=== PATIENT | female | born 1995 | race Caucasian/White ===

== ENCOUNTER 2019-10-03 16:28 | Emergency (ER) | payer OTHER, SELFPAY ==
[2019-10-03 17:37] VITALS: BP 113/50; PULSE 78; RESP 17; TEMP 37.1; O2SAT 99
--- NOTE | 2019-10-03 17:57 | ED.FEMALEGU ---
HPI - Female Genitourinary General Chief complaint: Urogenital-Female Stated complaint: Pelvic Pain Time Seen by Provider: 10/03/19 17:48 Source: patient and RN notes reviewed Mode of arrival: ambulatory Limitations: no limitations History of Present Illness HPI Narrative: Patient presents today complaining of chronic pelvic pain. States she was treated for PID in December, but reports she did not finish her antibiotics. States her pelvic pain is worse now and she is wondering if she has a UTI. She has an appointment with an MANAGER COLLECTION for follow-up tomorrow. MD elicited complaint: pelvic pain Related Data Home Medications Medication Instructions Recorded Confirmed No Home Medications 10/03/19 10/03/19 Allergies Allergy/AdvReac Type Severity Reaction Status Date / Time morphine Allergy Intermediate Confusion Verified 09/15/18 21:59 tramadol Allergy Intermediate Confusion Verified 10/03/19 17:37 acetaminophen Allergy Mild Nausea Verified 09/15/18 21:59 hydrocodone Allergy Mild Nausea Verified 09/15/18 21:59 latex Allergy Unknown ITCHING Verified 09/15/18 21:58 Review of Systems Review of Systems: Narrative: CONSTITUTIONAL: Denies body aches, fever, chills, or sweats. EYES: Denies visual changes, redness, or discharge. ENT: Denies rhinorrhea, congestion, sore throat, or otalgia. CARDIOVASCULAR: Denies chest pain, palpitations, or edema. RESPIRATORY: Denies cough or dyspnea. GASTROINTESTINAL: Denies abdominal pain, nausea, vomiting, or diarrhea. GENITOURINARY: Denies dysuria or hematuria. Pelvic pain SKIN: Denies rash, itching, or wounds. MUSCULOSKELETAL: Denies back pain, joint pain, or myalgia. NEUROLOGIC: Denies headache, numbness, tingling, or weakness. PSYCH: Denies depression or anxiety. 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 Please see nursing chart for further information. There is no relevant family history pertinent to the presenting complaint Exam Narrative: Exam Narrative: GENERAL: Well-appearing, well-nourished, and in no acute distress. HEAD: Normocephalic, atraumatic. EYES: EOMI. No redness or drainage. Conjunctivae normal. ENT: Mucous membranes pink and moist. NECK: Normal AROM. Supple. No lymphadenopathy. CHEST: No respiratory distress. Clear to auscultation. HEART: Regular rate and rhythm. No murmur appreciated. Normal peripheral pulses. ABDOMEN: Soft, nondistended, normal active bowel sounds.+ Right lower quadrant tenderness. no rebound or guarding. MUSCULOSKELETAL: No bony tenderness. EXTREMITIES: Normal range of motion. No edema. SKIN: Warm, dry, no rash. NEURO: No focal deficits. Alert and oriented x3. Gait steady. PSYCH: Normal affect. No signs of depression or anxiety. Course Vital Signs Vital signs: Vital Signs Temperature 98.7 F 10/03/19 17:37 Pulse Rate 78 10/03/19 17:37 Respiratory Rate 17 10/03/19 17:37 Blood Pressure 113/50 L 10/03/19 17:37 Pulse Oximetry 99 10/03/19 17:37 Temperature 98.7 F 10/03/19 17:37 Pulse Rate 78 10/03/19 17:37 Respiratory Rate 17 10/03/19 17:37 Blood Pressure 113/50 L 10/03/19 17:37 Pulse Oximetry 99 10/03/19 17:37 Reviewed MDM - Female Genitourinary Differential Diagnosis Differential diagnosis: Likely urinary tract infection, bacterial vaginosis, ovarian cyst, vaginitis, ruptured ov
== END 2019-10-03 18:00 | disposition home or self-care (01) ==
PROVIDERS: Emergency Provider Nurse Practitioner; PCP Emergency Medicine
DX: R10.2 Pelvic and perineal pain (principal); F17.200 Nicotine dependence, unspecified, uncomplicated
CPT/HCPCS: 81003; 99212; G0463

== ENCOUNTER 2019-10-12 22:55 | Emergency (ER) | payer OTHER, SELFPAY ==
--- NOTE | 2019-10-12 22:57 | PC.NURSE ---
During intake process, pt asked if she would be in and out with in 2 hours, if not I have no sitter . Explained to the patient acuity of the department, and their were patients ahead of her, and unable to give a wait time,explained to patient we would be taking her right back for triage. Pt then stated i'll just come back tomorrow, I don't want to be billed . Again, told pt we would be more than happy to see her, she declined and walked out with a normal steady gait.
== END 2019-10-12 22:57 | disposition left against medical advice (07) ==
PROVIDERS: PCP Emergency Medicine
DX: Z53.21 Procedure and treatment not carried out due to patient leaving prior to being seen by health care provider (principal)
CPT/HCPCS: 99199

== ENCOUNTER 2020-03-15 18:36 | Emergency (ER) | payer OTHER, SELFPAY ==
--- NOTE | ~2020-03-15 | CT_ITS ---
EXAMINATION: CT abdomen pelvis w con DATE: 03/15/2020 20:38 INDICATION: Abdominal pain. TECHNIQUE: Computed tomography (CT) of the abdomen and pelvis was performed with 100 mL Omnipaque 350 intravenous contrast. Automated exposure control and iterative reconstruction technique were employe d. The dose-length product was 180.18 mGy-cm. COMPARISON: None. FINDINGS: The visualized portions of the lung bases are clear without pneumonia or pleural effusion. The heart size is normal. No pericardial effusion. The liver, gallbladder, spleen, pancreas, adrenal glands, and kidneys are normal. There are no dilated loops of bowel. The appendix is normal. There ar e no pathologically enlarged lymph nodes. There is no free intraperitoneal fluid. There is lumbar lev ocurvature. IMPRESSION: 1. No etiology for the patient's symptoms. Reviewed, dictated and finalized at location A.
[2020-03-15 18:50] VITALS: BP 113/63; PULSE 80; RESP 16; TEMP 36.8; O2SAT 100
[2020-03-15 19:07] LABS: Basophils Percent Auto 0.4 % (0.2-1.2); Eosinophils Absolute Auto 0.1 K/mm3 (0-0.3); Hematocrit 40.8 % (37.0-47.0); Immature Granulocyte Absolute 0.02 K/mm3 (0.00-0.031); Immature Granulocyte Percent A 0.2 % (0-0.5); Lymphocytes Absolute Auto 2.69 K/mm3 (0.9-3.2); Lymphocytes Percent Auto 32.3 % (18.3-44.2); Mean Corpuscular HGB Conc 34.3 g/dl (32-36); Mean Corpuscular Volume 93.4 fl (80-100); Mean Platelet Volume 10.9 fl (7.4-10.4); Monocytes Absolute Auto 0.4 K/mm3 (0.1-0.6); Monocytes Percent Auto 5.2 % (2.6-8.5); Neutrophils Absolute Auto 5.1 K/mm3 (1.3-6.7); Neutrophils Percent Auto 60.9 % (45.5-73.1); Platelet Count Result 231 k/mm3 (150-375); Red Blood Count 4.37 M/mm3 (4.2-5.4); Red Cell Distribution Width 12.4 % (11.5-14.5); White Blood Count 8.3 K/mm3 (4.5-10.0)
[2020-03-15 19:09] LABS: Add Urine Microscopic? NO; Appearance Urine Clear (Clear); Bilirubin Urine Negative (Negative); Blood Urine Negative (Negative); Color Urine Yellow (Yellow); Glucose Urine UA Negative (Negative); Ketones Urine Negative (Negative); Leukocyte Esterase Ur Negative LEU/UL (Negative); Nitrate Urine Negative (Negative); Protein Urine Negative (Negative); Specific Grav Ur 1.026 (1.001-1.035); Urobilinogen Urine Negative mg/dL (<2.0)
[2020-03-15 19:18] LABS: Alanine Aminotransferase 16 U/L (4-35); Albumin Level 4.6 g/dL (3.5-5.1); Alkaline Phosphatase 60 U/L (38-126); Aspartate Amino Transferase 21 U/L (14-36); Bilirubin,Total 0.6 mg/dL (0.2-1.3); Blood Urea Nitrogen 14 mg/dL (7-17); Calcium 9.8 mg/dL (8.4-10.2); Carbon Dioxide 25 mmol/L (22-30); Chloride 103 mmol/L (98-107); Estimated CRCL calculation 99 ml/min; Estimated Glomerular Filt Rate > 60; Glucose 92 mg/dL (65-105); Lipase 70 U/L (23-300); Potassium 3.6 mmol/L (3.4-5.0); Sodium 136 mmol/L (137-145)
--- NOTE | 2020-03-15 21:20 | ED.ABDPAIN ---
HPI - Abdominal Pain General Chief Complaint: Abdominal Pain Stated Complaint: abd pain, poss Time Seen by Provider: 03/15/20 19:56 Source: patient Mode of arrival: ambulatory Limitations: no limitations History of Present Illness HPI narrative: Patient is a 24-year-old female who presents to emergency department with pelvic pain which began over the course of the last 3 days patient notes that she had had intercourse and the pain began 30 minutes after intercourse. Patient notes she is 2 weeks late for her period as well. Patient notes she has had 2- tests at home . Patient denies any fever chills nausea vomiting. Patient had had some loose stools. Patient denies rectal bleeding melena. Related Data Allergies Allergy/AdvReac Type Severity Reaction Status Date / Time morphine Allergy Intermediate Confusion Verified 09/15/18 21:59 tramadol Allergy Intermediate Confusion Verified 10/03/19 17:37 acetaminophen Allergy Mild Nausea Verified 09/15/18 21:59 hydrocodone Allergy Mild Nausea Verified 09/15/18 21:59 latex Allergy Unknown ITCHING Verified 09/15/18 21:58 Review of Systems Review of Systems: All systems reviewed & are unremarkable except as noted in HPI and below PMFSH Past Medical History Medical History History of pelvic inflammatory disease Family History Family History (Updated 01/04/15 @ 11:40 by DOCTOR UNKNOWN) Other Cerebrovascular accident Diabetes mellitus Family history of alcoholism Family history of arthritis Family history of malignant neoplasm Family history of mental disorder Hypertension Social History Social History Smoking status: Current every day smoker Alcohol intake: current Exam Const: General: no acute distress and alert Orientation/consciousness: patient oriented x3 HENMT: Head: normal to inspection Eyes: Conjunctivae: conjunctivae normal Pupils: Equal, round and reactive pupils present Resp: Effort & Inspection: normal respiratory effort Auscultation: clear to auscultation bilaterally Cardio: Rate: regular rate Rhythm: regular rhythm GI: GI Palp: Yes Soft to palpation and Yes Tenderness to palpation present (GI) : General: Yes no CVA tenderness Back/Spine/Pelvis: Back: no CVA tenderness Skin: General skin exam: normal color Rashes: no rashes Neuro: General: patient oriented x3 and moves all extremities Extrem: General: normal to inspection Psych: Mental Status: mental status grossly normal Affect: normal affect Other: Normal female genitourinary exam Course Course Emergency Course: Patient in the room in no distress aware of case findings treatment plan and diagnosis agreeing to follow-up as directed or to return if symptoms worsen patient without any high risk changes in the blood work or imaging patient had pelvic cultures taken and will follow with primary care for results felt appropriate for outpatient reevaluation provided with reasons to return Vital Signs Vital signs: Vital Signs Temperature 98.3 F 03/15/20 18:50 Pulse Rate 80 03/15/20 18:50 Respiratory Rate 16 03/15/20 18:50 Blood Pressure 113/63 03/15/20 18:50 Pulse Oximetry 100 03/15/20 18:50 Temperature 98.3 F 03/15/20 18:50 Pulse Rate 80 03/15/20 18:50 Respiratory Rate 16 03/15/20 18:50 Blood Pressure 113/63 03/15/20 18:50 Pulse Oximetry 100 03/15/20 18:50 MDM - Abdominal Pain MDM Narrative Medical decision making narrative: Patient with pelvic pain of unknown etiology pelvic cultures were taken patient also had blood work and imaging which did not reveal any high risk changes patient felt appropriate for outpatient reevaluation advised to follow with gynecology and primary care for reevaluation Lab Data Result diagrams: 03/15/20 18:56 03/15/20 18:56 Labs: Lab Results 03/15
[2020-03-15 21:38] VITALS: BP 114/71; PULSE 78; RESP 16; TEMP 36.7; O2SAT 100
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
== END 2020-03-15 21:38 | disposition home or self-care (01) ==
PROVIDERS: Emergency Medicine Emergency Medical Services; Family Medicine; Emergency Provider Emergency Medicine; PCP Emergency Medicine
DX: R10.2 Pelvic and perineal pain (principal); F17.200 Nicotine dependence, unspecified, uncomplicated
CPT/HCPCS: 36415; 74177; 80053; 81003; 81025; 83690; 85025; 87070; 87491; 87591; 87808; 99284; Q9967

== ENCOUNTER 2020-04-03 00:37 | Emergency (ER) | payer OTHER, SELFPAY ==
--- NOTE | ~2020-04-03 | XR_ITS ---
CORRECTED REPORT Report and charges moved from incorrect visit [id number] to correct visit [id number]. 04/03/20 sef EXAMINATION: XR facial bones min 3V INDICATION: Facial pain TECHNIQUE: Four views of the facial bones are obtained. COMPARISON: None available FINDINGS: No facial fracture is identified. The paranasal sinuses are well aerated. The visualized portions of the cervical spine are unremarkable. IMPRESSION: 1. No evidence of facial bone fracture. If there is high clinical suspicion for fracture, consider facial CT. Reviewed, dictated and finalized at location A. CHEL[facility]
[2020-04-03 00:42] VITALS: BP 132/66; PULSE 131; RESP 18; TEMP 36.3; O2SAT 98
[2020-04-03] MEDS: oxyCODONE/ACETAMINOPHEN 5-325 MG TABLET 1 TABLET PO (02:05)
[2020-04-03] MEDS: ONDANSETRON HCL ODT 4 MG TABLET PO (02:48)
[2020-04-03 02:49] VITALS: BP 126/56; PULSE 89; RESP 19; O2SAT 98
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
[2020-04-03 03:40] VITALS: BP 122/78; PULSE 80; RESP 19; O2SAT 99
== END 2020-04-03 03:40 | disposition home or self-care (01) ==
PROVIDERS: Emergency Provider Emergency Medicine; PCP Emergency Medicine
DX: S00.33XA Contusion of nose, initial encounter (principal); Y04.0XXA Assault by unarmed brawl or fight, initial encounter
CPT/HCPCS: 70150; 99283; A9270

== ENCOUNTER 2020-04-11 05:34 | Emergency (ER) | payer OTHER, SELFPAY ==
[2020-04-11 05:36] VITALS: BP 106/51; PULSE 100; RESP 19; TEMP 36.7; O2SAT 100
--- NOTE | 2020-04-11 05:38 | ED.GENADULT ---
HPI - General Adult General Chief complaint: Unspecified Stated complaint: sore throat Time Seen by Provider: 04/11/20 05:35 History of Present Illness HPI narrative: Sore throat since last night. Mild when she went to bed. Now she has severe pain and difficulty swallowing. The pain is on the left side of the throat. Assocatied with swollen tonsils. No cough, congestion, fever, sick contacts. Related Data Allergies Allergy/AdvReac Type Severity Reaction Status Date / Time morphine Allergy Intermediate Confusion Verified 04/11/20 05:39 latex Allergy Unknown ITCHING Verified 04/11/20 05:39 Review of Systems Review of Systems: All systems reviewed & are unremarkable except as noted in HPI and below Constitutional: Constitutional: Denies chills and Denies fever(s) ENT: Reports sore throat Cardiovascular: Cardiovascular: Denies chest pain Respiratory: Respiratory: Denies cough and Denies dyspnea Neurologic: Denies headache(s) COUNTS INCLUDE 234 BEDS AT THE [facility] Past Medical History Medical History History of pelvic inflammatory disease Surgical History Surgical History History of tubal ligation Family History Family History Other Cerebrovascular accident Diabetes mellitus Family history of alcoholism Family history of arthritis Family history of malignant neoplasm Family history of mental disorder Hypertension Social History Social History Smoking status: Current every day smoker Alcohol intake: current Gender identity (if verbalized by the patient): Female Exam Const: General: healthy appearing, no acute distress and alert Orientation/consciousness: patient oriented x3 HENMT: Other: Left tonsil enlarged and erythematous with exudates. uvula midline. Neck: Neck: lymphadenopathy (left anterior cervical) Resp: Effort & Inspection: normal respiratory effort Auscultation: clear to auscultation bilaterally Cardio: Rate: regular rate Rhythm: regular rhythm Skin: General skin exam: normal color Rashes: no rashes Neuro: General: patient oriented x3 Speech: normal speech Course Vital Signs Vital signs: Vital Signs Temperature 36.7 C 04/11/20 05:36 Pulse Rate 100 04/11/20 05:36 Respiratory Rate 19 04/11/20 05:36 Blood Pressure 106/51 L 04/11/20 05:36 Pulse Oximetry 100 04/11/20 05:36 Temperature 36.7 C 04/11/20 05:36 Pulse Rate 100 04/11/20 05:36 Respiratory Rate 04/11/20 05:36 Blood Pressure 106/51 L 04/11/20 05:36 Pulse Oximetry 100 04/11/20 05:36 Medical Decision Making MDM Narrative Medical decision making narrative: Strep swab negative. Due to the severity of her symptoms I will start antibioics pending culture results as I do not want it to progress into an abscess left untreated. Medical Records Medical records reviewed: Yes I reviewed the patient's medical records. Vital Signs Vital Signs: Vital Signs Temperature 36.7 C 04/11/20 05:36 Pulse Rate 100 04/11/20 05:36 Respiratory Rate 04/11/20 05:36 Blood Pressure 106/51 L 04/11/20 05:36 Pulse Oximetry 100 04/11/20 05:36 Temperature 36.7 C 04/11/20 05:36 Pulse Rate 100 04/11/20 05:36 Respiratory Rate 04/11/20 05:36 Blood Pressure 106/51 L 04/11/20 05:36 Pulse Oximetry 100 04/11/20 05:36 Lab Data Lab results reviewed: Yes I reviewed the patient's lab results. Labs: Strep Screen Presumptive Negative *(Reference Range: Negative)* Discharge Plan Discharge Clinical Impression: Tonsillitis Patient Disposition: Home, Self-Care Condition: Stable Instructions: Antibiotic Form, Tonsillitis (ED) Prescriptions: New penicillin V potassium 500 mg tablet 500 mg PO Q12H Qty: 20 RF: 0 No Action ibuprof
[2020-04-11] MEDS: KETOROLAC (*BKC) 60 MG/2 ML VIAL IM (05:55)
[2020-04-11] MEDS: PENICILLIN V POTASSIUM 250 MG TABLET 500 MG PO (06:02)
[2020-04-11 06:03] VITALS: BP 118/67; PULSE 69; RESP 19; TEMP 36.2; O2SAT 100
== END 2020-04-11 06:04 | disposition home or self-care (01) ==
PROVIDERS: Emergency Provider Emergency Medicine; PCP Emergency Medicine
DX: J03.90 Acute tonsillitis, unspecified (principal)
CPT/HCPCS: 87081; 87880; 96372; 99284; A9270; J1100; J1885

== ENCOUNTER 2020-09-23 23:54 | Emergency (ER) | payer OTHER, SELFPAY ==
--- NOTE | ~2020-09-23 | CT_ITS ---
EXAMINATION: CT abdomen pelvis w con EXAM DATE: 09/24/2020 03:14 INDICATION: Epigastric pain. TECHNIQUE: Spiral CT of the abdomen and pelvis was performed following intravenous injection of 100 m L Omnipaque 350. Axial, coronal and sagittal images were reviewed. The dose-length product (DLP) fo r this examination was 203.53 mGy-cm. The exposure was tailored according to patient size (auto mA e xposure control), and iterative reconstruction (ASIR) was used as additional dose reduction technique . There is no prior study for comparison. FINDINGS: The liver, spleen, adrenal glands and pancreas are unremarkable. Gallbladder is unremarkab le. No biliary obstruction. Portal and splenic veins are patent. Kidneys enhance symmetrically. T here is no hydronephrosis. The uterus is unremarkable. The bladder is unremarkable. There is no retroperitoneal or pelvic lymphadenopathy. The appendix is normal. The stomach and small bowel are unremarkable. There is expected amount of c olonic stool. No free intraperitoneal gas. The heart is normal in size. There are no pericardial or pleural effusions. The lung bases are unremarkable. There are no osteoblastic or osteolytic les ions identified. IMPRESSION: 1. No acute intra-abdominal findings. Reviewed, dictated and finalized at location A. O CONSULTANT
[2020-09-23 23:58] VITALS: BP 118/58; PULSE 89; RESP 16; TEMP 36; O2SAT 98
[2020-09-24 00:34] LABS: Basophils Percent Auto 0.5 % (0.2-1.2); Eosinophils Absolute Auto 0.3 K/mm3 (0-0.3); Eosinophils Percent Auto 3.6 % (0-4.4); Hematocrit 40.8 % (37.0-47.0); Hemoglobin 13.6 g/dL (12.0-15.0); Immature Granulocyte Absolute 0.02 K/mm3 (0.00-0.031); Immature Granulocyte Percent A 0.2 % (0-0.5); Lymphocytes Absolute Auto 2.51 K/mm3 (0.9-3.2); Lymphocytes Percent Auto 28.4 % (18.3-44.2); Mean Corpuscular HGB Conc 33.3 g/dl (32-36); Mean Corpuscular Hemoglobin 32.1 pg (26-34); Mean Corpuscular Volume 96.2 fl (80-100); Mean Platelet Volume 10.6 fl (7.4-10.4); Monocytes Absolute Auto 0.7 K/mm3 (0.1-0.6); Monocytes Percent Auto 7.3 % (2.6-8.5); Neutrophils Absolute Auto 5.3 K/mm3 (1.3-6.7); Platelet Count Result 275 k/mm3 (150-375); Red Blood Count 4.24 M/mm3 (4.2-5.4); Red Cell Distribution Width 12.2 % (11.5-14.5); White Blood Count 8.9 K/mm3 (4.5-10.0)
[2020-09-24] MEDS: SODIUM CHLORIDE 0.9% IV 1,000 ML 999 ML IV CONT (00:43)
[2020-09-24] MEDS: KETOROLAC 30 MG/ML VIAL (*BKC) IV PUSH (00:43)
[2020-09-24] MEDS: ONDANSETRON INJ 4 MG/2 ML VIAL IV PUSH (00:43)
[2020-09-24 00:45] LABS: Alanine Aminotransferase 70 U/L (4-35); Alkaline Phosphatase 85 U/L (38-126); Anion Gap 5 mmol/L (8-16); Aspartate Amino Transferase 46 U/L (14-36); Bilirubin,Total 0.5 mg/dL (0.2-1.3); Blood Urea Nitrogen 16 mg/dL (7-17); Calcium 9.2 mg/dL (8.4-10.2); Carbon Dioxide 28 mmol/L (22-30); Chloride 105 mmol/L (98-107); Estimated CRCL calculation 96 ml/min; Estimated Glomerular Filt Rate > 60; Glucose 101 mg/dL (65-105); Lipase 50 U/L (23-300); Potassium 3.7 mmol/L (3.4-5.0); Sodium 138 mmol/L (137-145)
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
[2020-09-24 02:04] LABS: Add Urine Microscopic? YES; Appearance Urine Cloudy (Clear); Bilirubin Urine Negative (Negative); Blood Urine Negative (Negative); Color Urine Yellow (Yellow); Glucose Urine UA Negative (Negative); Ketones Urine Negative (Negative); Leukocyte Esterase Ur Negative LEU/UL (Negative); Mucus Urine Moderate /lpf; Nitrate Urine Negative (Negative); Protein Urine 1+ mg/dL (Negative); RBC Urine 0-2 /hpf (0-2); Specific Grav Ur 1.029 (1.001-1.035); Squamous Epithelial Cell Urine Moderate /hpf (Few); Urobilinogen Urine Negative mg/dL (<2.0); WBC Urine 0-3 /hpf
[2020-09-24 02:47] VITALS: BP 98/57; PULSE 86; RESP 18; O2SAT 100
--- NOTE | 2020-09-24 03:04 | PC.NURSE ---
Patient taken to CT.
== END 2020-09-24 03:58 | disposition home or self-care (01) ==
PROVIDERS: Emergency Provider Emergency Medicine; PCP Emergency Medicine
DX: R10.13 Epigastric pain (principal); F17.200 Nicotine dependence, unspecified, uncomplicated; Y04.2XXA Assault by strike against or bumped into by another person, initial encounter
CPT/HCPCS: 36415; 74177; 80053; 81001; 81025; 83690; 85025; 96361; 96374; 96375; 99284; J1885; J2405; J7030; Q9967

== ENCOUNTER 2021-01-25 14:40 | Emergency (ER) | payer OTHER, SELFPAY ==
[2021-01-25 14:47] VITALS: BP 109/62; PULSE 72; RESP 16; TEMP 36.1; O2SAT 100
--- NOTE | 2021-01-25 14:55 | ECG_ITS ---
Measurements Intervals [place] Rate: 71 P: 64 [place]: 141 QRS: 64 QRSD: 98 T: 40 QT: 376 QTc: 410 Interpretive Statements SINUS RHYTHM POSSIBLE LEFT ATRIAL ENLARGEMENT INCOMPLETE RIGHT BUNDLE BRANCH BLOCK BASELINE ARTIFACT- I, II, III, AVR, AVL, AVF BORDERLINE ECG Electronically Signed On 01-25-2021 15:11:28 CDT by Efren De Jesus D.O.
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
[2021-01-25 15:19] LABS: Basophils Percent Auto 0.5 % (0.2-1.2); Eosinophils Absolute Auto 0.1 K/mm3 (0-0.3); Eosinophils Percent Auto 0.8 % (0-4.4); Hematocrit 43.2 % (37.0-47.0); Hemoglobin 14.6 g/dL (12.0-15.0); Immature Granulocyte Absolute 0.02 K/mm3 (0.00-0.031); Immature Granulocyte Percent A 0.3 % (0-0.5); Lymphocytes Absolute Auto 1.44 K/mm3 (0.9-3.2); Lymphocytes Percent Auto 23.6 % (18.3-44.2); Mean Corpuscular HGB Conc 33.8 g/dl (32-36); Mean Corpuscular Volume 97.7 fl (80-100); Mean Platelet Volume 10.6 fl (7.4-10.4); Monocytes Absolute Auto 0.4 K/mm3 (0.1-0.6); Monocytes Percent Auto 6.6 % (2.6-8.5); Neutrophils Absolute Auto 4.2 K/mm3 (1.3-6.7); Neutrophils Percent Auto 68.2 % (45.5-73.1); Platelet Count Result 259 k/mm3 (150-375); Red Blood Count 4.42 M/mm3 (4.2-5.4); Red Cell Distribution Width 12.4 % (11.5-14.5); White Blood Count 6.1 K/mm3 (4.5-10.0)
[2021-01-25 15:29] LABS: Prothrombin Time 13.4 Seconds (11.1-14.7)
[2021-01-25 15:30] LABS: Partial Thromboplastin Time 29.3 SECONDS (22.3-36.8)
[2021-01-25 15:31] LABS: Alanine Aminotransferase 15 U/L (4-35); Albumin Level 4.8 g/dL (3.5-5.1); Alkaline Phosphatase 64 U/L (38-126); Aspartate Amino Transferase 22 U/L (14-36); Bilirubin,Total 0.9 mg/dL (0.2-1.3); Lipase 77 U/L (23-300)
[2021-01-25 15:32] LABS: Anion Gap 7 mmol/L (8-16); Blood Urea Nitrogen 14 mg/dL (7-17); Calcium 10.2 mg/dL (8.4-10.2); Carbon Dioxide 30 mmol/L (22-30); Chloride 103 mmol/L (98-107); Estimated CRCL calculation 84 ml/min; Estimated Glomerular Filt Rate > 60; Glucose 100 mg/dL (65-105); Potassium 3.6 mmol/L (3.4-5.0); Sodium 140 mmol/L (137-145)
[2021-01-25 15:42] LABS: Troponin I < 0.012 ng/mL (0.000-0.034)
[2021-01-25 16:12] VITALS: BP 97/60; PULSE 65; RESP 19; O2SAT 100
[2021-01-25 17:12] VITALS: BP 91/55; PULSE 77; RESP 23; O2SAT 100
== END 2021-01-25 17:31 | disposition home or self-care (01) ==
PROVIDERS: Emergency Medicine Emergency Medical Services; Emergency Provider Emergency Medicine; PCP Emergency Medicine
DX: R10.9 Unspecified abdominal pain (principal); F17.200 Nicotine dependence, unspecified, uncomplicated; I45.10 Unspecified right bundle-branch block; R94.31 Abnormal electrocardiogram [ECG] [EKG]
CPT/HCPCS: 36415; 80048; 80076; 83690; 84484; 85025; 85610; 85730; 87070; 87491; 87591; 87808; 93005; 99284

== ENCOUNTER 2021-12-12 13:30 | Emergency (ER) | payer OTHER, SELFPAY ==
--- NOTE | ~2021-12-12 | CT_ITS ---
EXAMINATION: CT abdomen pelvis w con EXAM DATE: 12/12/2021 15:09 INDICATION: Right-sided abdominal pain, possible appendicitis. TECHNIQUE: Spiral CT of the abdomen and pelvis was performed following intravenous injection of 100 m L Omnipaque 350. Axial, coronal and sagittal images of the abdomen and pelvis were reviewed. The do se-length product (DLP) for this examination was 194.11 mGy-cm. The exposure was tailored according to patient size (auto mA exposure control), and iterative reconstruction (ASIR) was used as additiona l dose reduction technique. Comparison is made to prior examination from 09/24/2020. FINDINGS: The liver, spleen, adrenal glands and pancreas are unremarkable. Gallbladder has pharyngea l cap, is otherwise unremarkable. No biliary obstruction. Portal and splenic veins are patent. Kid neys enhance symmetrically. There is no hydronephrosis. The uterus is anteverted and morphological ly normal. The bladder is unremarkable. There is no retroperitoneal or pelvic lymphadenopathy. A normal appendix has been identified, indicated between arrows on axial image 118. The right ovary i s adjacent to the cecal base and unremarkable. Trace free pelvic fluid. The stomach and small bowel are unremarkable. There is expected amount of colonic stool. No free intraperitoneal gas. The he art is normal in size. There are no pericardial or pleural effusions. The lung bases are unremarkab le. There are no osteoblastic or osteolytic lesions identified. IMPRESSION: 1. No acute intra-abdominal findings. 2. Normal appendix. Reviewed, dictated and finalized at location B.
[2021-12-12 13:43] VITALS: BP 100/52; PULSE 84; RESP 16; TEMP 36.7; O2SAT 99
--- NOTE | 2021-12-12 13:50 | PC.NURSE ---
[employer] EXAMINER at bedside for pt assessment.
--- NOTE | 2021-12-12 13:56 | ED.ABDPAIN ---
HPI - Abdominal Pain General Chief Complaint: Abdominal Pain Stated Complaint: abd pain Time Seen by Provider: 12/12/21 13:38 History of Present Illness HPI narrative: 26-year-old female presents the emergency room complaints of a right-sided abdominal pain started yesterday. Patient describes the pain as a sharp stabbing pain is worse when she is walking. Denies vomiting diarrhea or constipation at this time. States her last menstrual period was 2 weeks ago, no concerns of STIs at this time Related Data Home Medications Medication Instructions Recorded Confirmed No Home Medications 12/12/21 12/12/21 Allergies Allergy/AdvReac Type Severity Reaction Status Date / Time morphine Allergy Intermediate Confusion Verified 12/12/21 13:46 latex Allergy Unknown ITCHING Verified 12/12/21 13:46 Review of Systems Review of Systems: CONSTITUTIONAL: Denies fever, chills, or sweats. EYES: Denies visual changes, redness, or discharge. ENT: Denies rhinorrhea, congestion, sore throat, or otalgia. CARDIOVASCULAR: Denies chest pain, palpitations, or edema. RESPIRATORY: Denies cough or dyspnea. GASTROINTESTINAL: Reports abdominal pain GENITOURINARY: Denies dysuria or hematuria. SKIN: Denies rash or itching. MUSCULOSKELETAL: Denies back pain, joint pain, or myalgia. NEUROLOGIC: Denies headache, numbness, dizziness, or weakness. PSYCHIATRIC: Denies anxiety or depression. [facility] Past Medical History Medical History (Updated 12/12/21 @ 15:30 by Taz Nix APRN) History of pelvic inflammatory disease Surgical History Surgical History History of tubal ligation Family History Family History Other Cerebrovascular accident Diabetes mellitus Family history of alcoholism Family history of arthritis Family history of malignant neoplasm Family history of mental disorder Hypertension Social History Social History Smoking status: Current every day smoker Alcohol intake: current Gender identity (if verbalized by the patient): Female Exam Narrative: GENERAL: Well-appearing, well-nourished, and in no acute distress. HEAD: Normocephalic, atraumatic. EYES: PERRLA and EOMI. CHEST: Clear to auscultation. No respiratory distress. No wheezes rales or rhonchi HEART: Regular rate and rhythm. No murmur heard. Normal peripheral pulses. ABDOMEN: Soft, right upper quadrant right/lower quadrant tenderness, nondistended, normal active bowel sounds. No guarding. Positive heel strike. No psoas or obturator signs EXTREMITIES: Normal range of motion. No edema. SKIN: Warm, dry, no rash. NEURO: No focal deficits. Alert and oriented x3. PSYCH: Normal mood and affect. Course Vital Signs Vital signs: Vital Signs Temperature 36.7 C 12/12/21 13:43 Pulse Rate 84 12/12/21 13:43 Respiratory Rate 16 12/12/21 13:43 Blood Pressure 100/52 L 12/12/21 13:43 Pulse Oximetry 99 12/12/21 13:43 Temperature 36.7 C 12/12/21 13:43 Pulse Rate 84 12/12/21 13:43 Respiratory Rate 16 12/12/21 13:43 Blood Pressure 100/52 L 12/12/21 13:43 Pulse Oximetry 99 12/12/21 13:43 MDM - Abdominal Pain MDM Narrative Medical decision making narrative: 26-year-old female presents emergency room with right-sided abdominal pain that began this morning. CBC and CMP were unremarkable. CT scan showed no acute intra-abdominal abnormalities. Scalp films showed moderate to heavy stool load. Patient likely experiencing constipation. Medical Records Attestation: I reviewed the patient's medical records. Lab Data Attestation: I reviewed the patient's lab results. Result diagrams: 12/12/21 14:28 12/12/21 14:28 Labs: Lab Results 12/12/21 12/12/21 12/12/21 Range/Units 14:21 14:28 14:28 WBC 5.1 (4.5-10.0) K/mm3 RBC 4.19 L (
[2021-12-12] MEDS: SODIUM CHLORIDE 0.9% IV 1,000 ML 999 ML IV CONT (14:21)
[2021-12-12 14:38] LABS: Appearance Urine Clear (Clear); Bilirubin Urine Negative (Negative); Blood Urine Negative (Negative); Color Urine Yellow (Yellow); Glucose Urine UA Negative (Negative); Ketones Urine Negative (Negative); Leukocyte Esterase Ur Negative LEU/UL (Negative); Nitrate Urine Negative (Negative); Protein Urine Negative (Negative); Urobilinogen Urine 0.2 mg/dL (<2.0)
[2021-12-12 14:38] LABS: Basophils Percent Auto 0.4 % (0.2-1.2); Eosinophils Absolute Auto 0.1 K/mm3 (0-0.3); Eosinophils Percent Auto 2.4 % (0-4.4); Hematocrit 40.4 % (37.0-47.0); Hemoglobin 13.4 g/dL (12.0-15.0); Immature Granulocyte Absolute 0.01 K/mm3 (0.00-0.031); Immature Granulocyte Percent A 0.2 % (0-0.5); Lymphocytes Absolute Auto 1.74 K/mm3 (0.9-3.2); Lymphocytes Percent Auto 34.5 % (18.3-44.2); Mean Corpuscular HGB Conc 33.2 g/dl (32-36); Mean Corpuscular Volume 96.4 fl (80-100); Mean Platelet Volume 11.1 fl (7.4-10.4); Monocytes Absolute Auto 0.5 K/mm3 (0.1-0.6); Monocytes Percent Auto 9.3 % (2.6-8.5); Neutrophils Absolute Auto 2.7 K/mm3 (1.3-6.7); Neutrophils Percent Auto 53.2 % (45.5-73.1); Platelet Count Result 228 k/mm3 (150-375); Red Blood Count 4.19 M/mm3 (4.2-5.4); Red Cell Distribution Width 12.1 % (11.5-14.5); White Blood Count 5.1 K/mm3 (4.5-10.0)
[2021-12-12 14:48] LABS: Bacteria Urine Trace /hpf; Mucus Urine Rare /lpf; Squamous Epithelial Cell Urine Occasional /hpf (Few); WBC Urine 0-3 /hpf
[2021-12-12 14:48] LABS: Alanine Aminotransferase 37 U/L (4-35); Alkaline Phosphatase 74 U/L (38-126); Anion Gap 8 mmol/L (8-16); Aspartate Amino Transferase 31 U/L (14-36); Bilirubin,Total 0.6 mg/dL (0.2-1.3); Blood Urea Nitrogen 15 mg/dL (7-17); Calcium 8.7 mg/dL (8.4-10.2); Carbon Dioxide 26 mmol/L (22-30); Chloride 104 mmol/L (98-107); Estimated CRCL calculation 100 ml/min; Estimated Glomerular Filt Rate > 60; Glucose 83 mg/dL (65-110); Potassium 3.7 mmol/L (3.4-5.0); Sodium 138 mmol/L (137-145)
[2021-12-12 14:49] LABS: Add Urine Microscopic? NO
[2021-12-12] MEDS: KETOROLAC 30 MG/ML VIAL (*BKC) IV PUSH (14:56)
[2021-12-12 15:52] VITALS: BP 93/68; PULSE 96; RESP 16; O2SAT 97
== END 2021-12-12 15:53 | disposition home or self-care (01) ==
PROVIDERS: Emergency Provider Nurse Practitioner Family; PCP Emergency Medicine
DX: R10.84 Generalized abdominal pain (principal); F17.200 Nicotine dependence, unspecified, uncomplicated
CPT/HCPCS: 36415; 74177; 80053; 81003; 81025; 85025; 96361; 96374; 99284; J1885; J7030; Q9967

== ENCOUNTER 2022-04-29 19:16 | Emergency (ER) | payer OTHER, SELFPAY ==
[2022-04-29 19:19] VITALS: BP 110/48; PULSE 81; RESP 16; TEMP 36.5; O2SAT 99
[2022-04-29 21:08] VITALS: BP 93/56; PULSE 86; RESP 18; TEMP 36.6; O2SAT 99
--- NOTE | 2022-04-29 21:25 | ED.GENADULT ---
HPI - General Adult General Chief complaint: Unspecified Stated complaint: sore throat Time Seen by Provider: 04/29/22 20:42 Source: patient Mode of arrival: ambulatory Limitations: no limitations History of Present Illness HPI narrative: Patient is a 26-year-old female who presents the ED with report of sore throat. Patient reports she woke up this morning with a mild sore throat. Pain has worsened throughout the day, prompting her presentation. Patient reports having similar symptoms 2 years ago, at which point her strep testing was negative. She was on amoxicillin 4 weeks ago for a sinus infection. Also begun doxycycline this morning for chlamydia, prescribed by PCP. Patient denies fever, cough, runny nose, congestion, nausea, vomiting, difficulty breathing, difficulty swallowing. Related Data Allergies Allergy/AdvReac Type Severity Reaction Status Date / Time morphine Allergy Intermediate Confusion Verified 04/29/22 19:22 latex Allergy Unknown ITCHING Verified 04/29/22 19:22 Review of Systems Review of Systems: CONSTITUTIONAL: Denies fever, chills, or sweats. ENT: Reports sore throat. Denies rhinorrhea, congestion, difficulty swallowing. CARDIOVASCULAR: Denies chest pain. RESPIRATORY: Denies cough or dyspnea. GASTROINTESTINAL: Denies nausea, vomiting. All systems reviewed & are unremarkable except as noted in HPI and below PMFSH Past Medical History Medical History (Updated 04/29/22 @ 21:32 by Yeni Cutler PA-C) History of chlamydia History of pelvic inflammatory disease Surgical History Surgical History History of tubal ligation Family History Family History Other Cerebrovascular accident Diabetes mellitus Family history of alcoholism Family history of arthritis Family history of malignant neoplasm Family history of mental disorder Hypertension Social History Social History Smoking status: Current every day smoker Alcohol intake: current Gender identity (if verbalized by the patient): Female Exam Narrative: GENERAL: Well appearing, well-nourished, non-toxic, in no acute distress. HEAD: Normocephalic, atraumatic. EYES: PERRL/EOMI, conjunctivae clear bilaterally. NOSE: Normal, no drainage. THROAT: Pharynx clear, mild posterior erythema. Mild tonsillar hypertrophy, left greater than right, with scattered small exudate. No kissing or near kissing tonsils. Airway patent. Uvula midline. MMs moist. NECK: Supple. No significant adenopathy, no masses. CARDIOVASCULAR: Regular rate and rhythm without murmurs, rubs, or gallops. Radial pulses 2+ and equal bilaterally. MUSCULOSKELETAL: Moves all extremities. Strength/ROM intact without gross deformities. SKIN: Warm, dry, normal color. No rashes. NEURO: A&O X3. Speech clear. Cranial nerves II-XII grossly intact. Steady gait. No ataxic movements. PSYCHIATRIC: Appropriate mood and affect. Normal interaction. Course Vital Signs Vital signs: Vital Signs Temperature 97.7 F 04/29/22 19:19 Pulse Rate 81 04/29/22 19:19 Respiratory Rate 16 04/29/22 19:19 Blood Pressure 110/48 L 04/29/22 19:19 Pulse Oximetry 99 04/29/22 19:19 Oxygen Delivery Room Air 04/29/22 19:19 Temperature 97.8 F 04/29/22 21:08 Pulse Rate 86 04/29/22 21:08 Respiratory Rate 18 04/29/22 21:08 Blood Pressure 93/56 L 04/29/22 21:08 Pulse Oximetry 99 04/29/22 21:08 Oxygen Delivery Room Air 04/29/22 19:19 Medical Decision Making [facility] Narrative Medical decision making narrative: Patient presented to ED with sore throat x1 day. Patient with mild tonsillar hypertrophy with some exudate, but no kissing tonsils. No dyspnea, dysphagia, drooling, or any other signs of airway compromise. Uvula midline. No signs or symptoms of peritonsillar abscess to suggest ne
[2022-04-29] MEDS: LIDOCAINE HCL 2% VISC SOLN 15 ML UDC PO (21:29)
[2022-04-29] MEDS: AMOXICILLIN/CLAVULANATE K 875-125 MG TAB 1 TABLET PO (21:30)
[2022-04-29] MEDS: methylPREDNISolone SOD SUCC 125 MG VIAL IM (21:32)
== END 2022-04-29 21:45 | disposition home or self-care (01) ==
PROVIDERS: Emergency Provider Emergency Medicine; PCP Emergency Medicine
DX: J02.0 Streptococcal pharyngitis (principal)
CPT/HCPCS: 87880; 96372; 99283; A9270; J2930

== ENCOUNTER 2022-06-05 17:20 | Emergency (ER) | payer OTHER, SELFPAY ==
--- NOTE | ~2022-06-05 | XR_ITS ---
XR wrist RT min 3V 06/05/2022 20:34 Indication: Right wrist pain Procedure: 4 views right wrist Comparison: No prior studies for comparison. Findings: No fracture, subluxation or dislocation. There is anatomic alignment. No focal soft tissue abnormality. No foreign bodies. Impression: 1: No acute bone or joint abnormality. Reviewed, dictated and finalized at location A. Impression: 1: No acute bone or joint abnormality.
--- NOTE | ~2022-06-05 | XR_ITS ---
XR mandible min 4V 06/05/2022 20:38 Indication: Left lateral jaw pain Procedure: 7 views of the mandible Comparison: 04/03/2020 Findings: There are side plate and screws transfixing the left aspect of the mandible. Orbits are sym metric. Paranasal sinuses are pneumatized. No acute fracture, subluxation or dislocation. Impression: 1: No acute abnormality of the mandible. Reviewed, dictated and finalized at location A. Impression: 1: No acute abnormality of the mandible.
[2022-06-05 17:29] VITALS: BP 109/58; PULSE 80; RESP 20; TEMP 36.9; O2SAT 100
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
--- NOTE | 2022-06-05 19:53 | ED.GENADULT ---
HPI - General Adult General Chief complaint: Unspecified Stated complaint: chlamydia, wrist x ray, jaw xray Time Seen by Provider: 06/05/22 19:31 History of Present Illness HPI narrative: 26-year-old female presenting the emergency department for evaluation of recurrent chlamydial symptoms. Patient states in March she was treated with doxycycline for chlamydia. Patient states that she did have contact again with the source of the initial infection. Patient called her primary care physician and was referred to the emergency department for further testing. Patient states she has also been having unrelated right wrist pain and is having increased left lateral jaw pain secondary to a previous jaw fracture. Patient denies any incident of right wrist injury but states that it has been hurting for the last few weeks. Patient did report increased pain yesterday when she was attempting to push herself up using that hand. Related Data Allergies Allergy/AdvReac Type Severity Reaction Status Date / Time morphine Allergy Intermediate Confusion Verified 04/29/22 19:22 latex Allergy Unknown ITCHING Verified 04/29/22 19:22 Review of Systems Review of Systems: CONSTITUTIONAL: Denies fever, chills, or sweats. EYES: Denies visual changes, redness, or discharge. ENT: Denies rhinorrhea, congestion, sore throat, or otalgia. CARDIOVASCULAR: Denies chest pain, palpitations, or edema. RESPIRATORY: Denies cough or dyspnea. GASTROINTESTINAL: Denies abdominal pain, nausea, vomiting, or diarrhea. GENITOURINARY: See HPI SKIN: Denies rash or itching. MUSCULOSKELETAL: Left lateral shoulder pain and right wrist pain NEUROLOGIC: Denies headache, numbness, or weakness. [facility] Past Medical History Medical History (Updated 06/06/22 @ 00:00 by Nette Pinto) History of chlamydia History of pelvic inflammatory disease Surgical History Surgical History History of tubal ligation Family History Family History Other Cerebrovascular accident Diabetes mellitus Family history of alcoholism Family history of arthritis Family history of malignant neoplasm Family history of mental disorder Hypertension Social History Social History Smoking status: Current every day smoker Alcohol intake: current Gender identity (if verbalized by the patient): Female Exam Narrative: APPEARANCE: Well appearing, no pain, no distress, well-nourished. HEAD: normocephalic, atraumatic. No mandibular tenderness to palpation. No deformity. EYES: PERRLA/EOMI, conjunctivae clear. NOSE: Normal no drainage THROAT: Pharynx clear, no exudate. NECK: Supple. No adenopathy, no masses. RESPIRATORY: Airway patent, respirations nonlabored. Clear to auscultation bilaterally, no rales, rhonchi, wheezing. CARDIOVASCULAR: Regular rate and rhythm without murmurs rubs or gallops. ABDOMINAL: Soft, nontender, nondistended, normal bowel sounds Pelvic exam: White vaginal discharge. Cervix was nonfriable. MUSCULOSKELETAL: Moves all extremities. Right wrist tenderness to palpation. No swelling or ecchymosis. Normal range of motion. NEURO: Alert. Cranial nerves II through XII intact. Grossly intact SKIN: Warm, dry. Normal Color Course Course Emergency Course: Patient was treated empirically for chlamydia. Patient was treated with Rocephin IM and Doxy for 14 days. X-ray showed no abnormality of the mandible or the wrist. Vital Signs Vital signs: Vital Signs Temperature 98.4 F 06/05/22 17:29 Pulse Rate 80 06/05/22 17:29 Respiratory Rate 20 06/05/22 17:29 Blood Pressure 109/58 L 06/05/22 17:29 Pulse Oximetry 100 06/05/22 17:29 Oxygen Delivery Room Air 06/05/22 17:29 Temperature 98.4 F 06/05/22 17:29 Pulse Rate 99 06/05/22 21:31 Respiratory Rate 16 06/05/22 21:31 Bloo
[2022-06-05 20:53] LABS: Appearance Urine Cloudy (Clear); Bilirubin Urine Negative (Negative); Blood Urine Negative (Negative); Color Urine Yellow (Yellow); Glucose Urine UA Negative (Negative); Ketones Urine Negative (Negative); Leukocyte Esterase Ur Trace LEU/UL (Negative); Nitrate Urine Negative (Negative); Protein Urine Negative (Negative); Specific Grav Ur 1.025 (1.001-1.035); Urobilinogen Urine 0.2 mg/dL (<2.0)
[2022-06-05 21:08] LABS: Bacteria Urine Trace /hpf; Mucus Urine Rare /lpf; RBC Urine 0-2 /hpf (0-2); Squamous Epithelial Cell Urine Many /hpf (Few); WBC Urine 0-3 /hpf
--- NOTE | 2022-06-05 21:11 | PC.NURSE ---
Called pharmacy for Rocephin 250 mg
[2022-06-05] MEDS: cefTRIAXone 250 MG VIAL IM (21:20)
[2022-06-05] MEDS: LIDOCAINE HCL 1% PF 30 ML VIAL (21:20)
[2022-06-05] MEDS: DOXYCYCLINE HYCLATE 100 MG TABLET PO (21:20)
[2022-06-05 21:28] LABS: Add Urine Microscopic? YES
[2022-06-05 21:31] VITALS: BP 107/58; PULSE 99; RESP 16; O2SAT 96
== END 2022-06-05 21:31 | disposition home or self-care (01) ==
PROVIDERS: Physician Assistant; Emergency Provider Emergency Medicine; PCP Emergency Medicine
DX: N89.8 Other specified noninflammatory disorders of vagina (principal); M25.531 Pain in right wrist; R68.84 Jaw pain; F17.200 Nicotine dependence, unspecified, uncomplicated
CPT/HCPCS: 70110; 73110; 81001; 87070; 87491; 87591; 87808; 96372; 99284; A9270; J0696

== ENCOUNTER 2022-08-20 11:34 | Emergency (ER) | payer OTHER, SELFPAY ==
--- NOTE | ~2022-08-20 | XR_ITS ---
Clinical Indication: Hemoptysis PA and lateral views of the chest: Comparison: 07/15/2004 Findings: The lungs are clear, without evidence of focal consolidation or pleural effusion. Cardiome diastinal silhouette is within normal limits. Bones and soft tissues are unremarkable. Impression: Normal chest. Reviewed, dictated and finalized at location . [employer] OPERATOR Impression: Normal chest.
[2022-08-20 11:41] VITALS: BP 108/53; PULSE 94; RESP 16; TEMP 36.7; O2SAT 100
--- NOTE | 2022-08-20 12:16 | ED.URI ---
HPI - URI/Sore Throat General Chief Complaint: Upper Respiratory Infection Stated Complaint: coughing up blood Time Seen by Provider: 08/20/22 11:45 Source: patient Mode of arrival: ambulatory Limitations: no limitations History of Present Illness HPI Narrative: Ms. Gomes is a 26-year-old female patient presenting to clinic today with complaints of cough, throat irritation, and coughing up blood. She denies any known fever or chills. She had a video visit with her physician and they recommend she come into the [facility] for a chest x-ray. MD elicited complaint: sore throat and nasal congestion Related Data Home Medications Medication Instructions Recorded Confirmed Klonopin 08/20/22 Allergies Allergy/AdvReac Type Severity Reaction Status Date / Time morphine Allergy Intermediate Confusion Verified 08/20/22 11:37 latex Allergy Unknown ITCHING Verified 08/20/22 11:37 Review of Systems Review of Systems: Pertinent positives per HPI. Patient denies any fever, chills, rash, headache, visual changes, dizziness, , shortness of breath, chest pain, palpitations, nausea, vomiting, diarrhea, constipation, abdominal pain, or any urinary issues. [facility] Past Medical History Medical History History of chlamydia History of pelvic inflammatory disease Surgical History Surgical History History of tubal ligation Family History Family History Other Cerebrovascular accident Diabetes mellitus Family history of alcoholism Family history of arthritis Family history of malignant neoplasm Family history of mental disorder Hypertension Social History Social History Smoking status: Current every day smoker Alcohol intake: current Gender identity (if verbalized by the patient): Female Comments At the time of my signature, I reviewed and agree with the nursing past medical, surgical, social, and family history. There is no relevant family history pertinent to the patient complaint. Exam Narrative: General: Well-developed, well nourished, in no apparent distress Head: Normocephalic, atraumatic Eyes: Pupils equally round and reactive to light bilaterally, EOM intact, sclera and conjunctive clear, no discharge, lids normal Ears: TMs intact and clear, ear canals clear, no drainage, grossly hearing normal. Nose: Nares patent, clear nasal discharge, no inflammation, no sinus tenderness. Mouth: Oral pharynx without lesions or masses, good dentition, MMM. oropharynx red Neck: Supple, trachea midline, mild enlargement of anterior cervical nodes, no thyroid masses or goiter palpable. Cardio: Regular rate and rhythm, s1 and s2 normal, no murmur appreciated. Resp: Clear to auscultation bilaterally, no rhonchi, rales, wheezing or rubs Course Course Emergency Course: Portions of this record may have been created with voice recognition software. Level of Care: Express Care Visit Vital Signs Vital signs: Vital Signs Temperature 36.7 C 08/20/22 11:41 Pulse Rate 94 08/20/22 11:41 Respiratory Rate 16 08/20/22 11:41 Blood Pressure 108/53 L 08/20/22 11:41 Pulse Oximetry 100 08/20/22 11:41 Oxygen Delivery Room Air 08/20/22 11:41 Temperature 36.7 C 08/20/22 11:41 Pulse Rate 94 08/20/22 11:41 Respiratory Rate 16 08/20/22 11:41 Blood Pressure 108/53 L 08/20/22 11:41 Pulse Oximetry 100 08/20/22 11:41 Oxygen Delivery Room Air 08/20/22 11:41 Vital signs reviewed MDM - URI/Sore Throat MDM Narrative Medical decision making narrative: At the time of the patient is resting comfortably on the exam table. COVID testing was negative in the clinic today. chest x-ray was completed and was negative for any sign of pneumonia or mass.
== END 2022-08-20 12:27 | disposition home or self-care (01) ==
PROVIDERS: Emergency Provider Nurse Practitioner Family; PCP Emergency Medicine
DX: J06.9 Acute upper respiratory infection, unspecified (principal); J02.9 Acute pharyngitis, unspecified; Z20.822 Contact with and (suspected) exposure to COVID-19; F17.200 Nicotine dependence, unspecified, uncomplicated
CPT/HCPCS: 71046; 87081; 87426; 99213; C9803; G0463

== ENCOUNTER 2022-10-17 17:33 | Emergency (ER) | payer OTHER, SELFPAY ==
[2022-10-17 17:37] VITALS: BP 106/55; PULSE 82; RESP 18; TEMP 36.7; O2SAT 100
--- NOTE | 2022-10-17 17:42 | ECG_ITS ---
Measurements Intervals [place] Rate: 77 P: 68 [place]: 159 QRS: 80 QRSD: 104 T: 48 QT: 374 QTc: 424 Interpretive Statements SINUS RHYTHM INCOMPLETE RIGHT BUNDLE BRANCH BLOCK BORDERLINE ECG COMPARED TO ECG 01/25/2021 14:53:44 NO SIGNIFICANT CHANGES Electronically Signed On 10-18-2022 16:34:10 [employer] by Fausto Willson M.D.
--- NOTE | 2022-10-17 19:10 | PC.NURSE ---
Pt came up to the desk stated that she needs to leave to get her kids something to eat. RN informed her if she needed to come back after to do so.
== END 2022-10-17 19:10 | disposition left against medical advice (07) ==
PROVIDERS: Emergency Provider Emergency Medicine; PCP Emergency Medicine
DX: M79.602 Pain in left arm (principal)
CPT/HCPCS: 93005; 99199

== ENCOUNTER 2023-05-06 18:32 | Emergency (ER) | payer OTHER, SELFPAY ==
--- NOTE | 2023-05-06 18:38 | ED.URI ---
HPI - URI/Sore Throat General Chief Complaint: Upper Respiratory Infection Stated Complaint: Rash/Sore Throat Time Seen by Provider: 05/06/23 18:38 Source: patient Mode of arrival: ambulatory Limitations: no limitations History of Present Illness HPI Narrative: Patient is a 27-year-old female who presents with 1 week of sore throat, cough, congestion, diarrhea. Denies any fever, chills, ear pain, sinus pressure, headache, nausea, vomiting. Has taken DayQuil 1 day. Related Data Home Medications Medication Instructions Recorded Confirmed albuterol sulfate 90 mcg/actuation 90 mcg inhalation DIRECTED 05/06/23 05/06/23 aerosol inhaler dextroamphetamine-amphetamine ER 10 mg PO DIRECTED 05/06/23 05/06/23 10 mg 24hr capsule,extend release (Adderall XR) dextroamphetamine-amphetamine ER 20 mg PO DIRECTED 05/06/23 05/06/23 20 mg 24hr capsule,extend release (Adderall XR) hydroxyzine pamoate 25 mg capsule 25 mg DIRECTED 05/06/23 05/06/23 Allergies Allergy/AdvReac Type Severity Reaction Status Date / Time morphine Allergy Intermediate Confusion Verified 08/20/22 11:37 latex Allergy Unknown ITCHING Verified 08/20/22 11:37 Review of Systems Review of Systems: All systems reviewed & are unremarkable except as noted in HPI and below Constitutional: Constitutional: Denies body ache(s), Denies chills, Denies fatigue, Denies fever(s), Denies headache(s), Denies malaise and Denies weakness Eyes: Eyes: Denies blurry vision, Denies itchy eyes and Denies loss of vision ENT: Denies otalgia, Denies headache(s), Reports nasal congestion, Denies sinus pain and Denies sore throat Cardiovascular: Cardiovascular: Denies chest pain, Denies irregular heart rhythm and Denies dyspnea Respiratory: Respiratory: Reports cough and Denies dyspnea Gastrointestinal: Gastrointestinal: Denies abdominal pain, Denies diarrhea, Denies nausea and Denies vomiting Musculoskeletal: Musculoskeletal: Denies back pain, Denies myalgias and Denies arthralgias Integumentary/Breasts: Skin/Breast: Denies pruritus and Denies rash Neurologic: Denies headache(s), Denies loss of vision and Denies weakness Psychiatric: Psychiatric: Reports no additional psychiatric complaints Endocrine: Endocrine: Denies fatigue Allergic/Immunologic: Allergic/Immunologic: Denies itchy eyes PMFSH Past Medical History Medical History History of chlamydia History of pelvic inflammatory disease Surgical History Surgical History History of tubal ligation Family History Family History Other Cerebrovascular accident Diabetes mellitus Family history of alcoholism Family history of arthritis Family history of malignant neoplasm Family history of mental disorder Hypertension Social History Social History Smoking status: Current every day smoker Alcohol intake: current Gender identity (if verbalized by the patient): Female Comments At time of signature, agree with nursing past medical, surgical, social and family history. There is no relevant family history pertinent to the presenting complaint. Exam Const: General: cooperative, healthy appearing, comfortable, no acute distress and well nourished Nutritional Appearance: well nourished Orientation/consciousness: patient oriented x3 Limitations: no limitations HENMT: Head: normal to inspection, normocephalic and atraumatic Ears: hearing grossly normal bilaterally, external ears normal, TM's normal bilaterally, EAC's normal and no periauricular adenopathy Face/Nose/Sinus: Normal external nose present, Abnormal mucous membranes and turbinates present erythematous bilateral and diffuse, normal facial exam, sinuses nontender and face symmetric Face and si
[2023-05-06 18:51] VITALS: BP 94/61; PULSE 114; RESP 16; TEMP 36.4; O2SAT 99
== END 2023-05-06 20:14 | disposition home or self-care (01) ==
PROVIDERS: Emergency Provider Nurse Practitioner Family
DX: J06.9 Acute upper respiratory infection, unspecified (principal); F17.200 Nicotine dependence, unspecified, uncomplicated
CPT/HCPCS: 99211; G0463

== ENCOUNTER 2023-12-12 16:52 | Emergency (ER) | payer OTHER, SELFPAY ==
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
[2023-12-12 17:22] VITALS: BP 98/52; PULSE 86; RESP 18; TEMP 36.4; O2SAT 100
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
[2023-12-12] MEDS: IBUPROFEN 400 MG TABLET 800 MG PO (18:21)
== END 2023-12-12 18:55 | disposition home or self-care (01) ==
PROVIDERS: Emergency Provider Nurse Practitioner Family
DX: S16.1XXA Strain of muscle, fascia and tendon at neck level, initial encounter (principal); S29.012A Strain of muscle and tendon of back wall of thorax, initial encounter; S39.012A Strain of muscle, fascia and tendon of lower back, initial encounter; S22.32XA Fracture of one rib, left side, initial encounter for closed fracture; F17.200 Nicotine dependence, unspecified, uncomplicated; Y04.0XXA Assault by unarmed brawl or fight, initial encounter
CPT/HCPCS: 71101; 72040; 72072; 72100; 81025; 99284; A9270

== ENCOUNTER 2024-10-03 19:45 | Emergency (ER) | payer OTHER, SELFPAY ==
[2024-10-03 19:56] VITALS: BP 106/56; PULSE 87; RESP 16; TEMP 36.9; O2SAT 99
--- NOTE | 2024-10-03 20:03 | ED.URI ---
HPI - URI/Sore Throat General Chief Complaint: Upper Respiratory Infection Stated Complaint: ear pain,hot,chills Source: patient, RN notes reviewed and old records reviewed Mode of arrival: ambulatory Limitations: no limitations Related Data Home Medications ?Medication ?Instructions ?Recorded ?Confirmed ?Last Taken ?Type albuterol sulfate 90 mcg/actuation 90 mcg inhalation DIRECTED 05/06/23 05/06/23 Unknown History aerosol inhaler dextroamphetamine-amphetamine ER 10 mg PO DIRECTED 05/06/23 05/06/23 Unknown History 10 mg 24hr capsule,extend release (Adderall XR) dextroamphetamine-amphetamine ER 20 mg PO DIRECTED 05/06/23 05/06/23 Unknown History 20 mg 24hr capsule,extend release (Adderall XR) hydroxyzine pamoate 25 mg capsule 25 mg DIRECTED 05/06/23 05/06/23 Unknown History Allergies Allergy/AdvReac Type Severity Reaction Status Date / Time morphine Allergy Intermediate Confusion Verified 12/12/23 17:29 latex Allergy Unknown ITCHING Verified 12/12/23 17:29 Review of Systems Review of Systems: All systems reviewed & are unremarkable except as noted in HPI and below Constitutional: Constitutional: Reports no additional constitutional complaints ENT: Reports system reviewed and no additional complaints, except as documented Cardiovascular: Cardiovascular: Reports no additional cardiovascular complaints Respiratory: Respiratory: Reports no additional respiratory complaints Gastrointestinal: Gastrointestinal: Reports no additional gastrointestinal complaints [facility] Past Medical History Medical History History of chlamydia History of pelvic inflammatory disease Surgical History Surgical History History of tubal ligation Family History Family History Other Cerebrovascular accident Diabetes mellitus Family history of alcoholism Family history of arthritis Family history of malignant neoplasm Family history of mental disorder Hypertension Social History Social History Smoking status: Current every day smoker Alcohol intake: current Gender identity (if verbalized by the patient): Female Comments At the time of my signature, I reviewed and agree with the nursing past medical, surgical, social, and family history. There is no relevant family history pertinent to the patient complaint. Exam Const: General: cooperative, no acute distress, alert and awake Orientation/consciousness: oriented to person, oriented to place and oriented to time HENMT: Head: normal to inspection Resp: Effort & Inspection: normal respiratory effort and able to speak in complete sentences Auscultation: clear to auscultation bilaterally, no crackles, no rales, no rhonchi and no wheezes Cardio: Palpation: normal PMI Rate: regular rate Rhythm: regular rhythm Heart sounds: S1 normal heart sound present and S2 normal heart sound present Neuro: General: oriented to person, oriented to place and oriented to time Cranial nerves: Yes CN's II-XII intact bilaterally Psych: Appearance: grossly normal Thought process: Normal thought process present Insight: Good insight present (Psych) Judgement: Good judgement present (Psych) Course Course Level of Care: Express Care Visit Vital Signs Vital signs: Vital Signs Temperature 98.4 F 10/03/24 19:56 Pulse Rate 87 10/03/24 19:56 Respiratory Rate 16 10/03/24 19:56 Blood Pressure 106/56 L 10/03/24 19:56 Pulse Oximetry 99 10/03/24 19:56 Oxygen Delivery Room Air 10/03/24 19:56 Temperature 98.4 F 10/03/24 19:56 Pulse Rate 87 10/03/24 19:56 Respiratory Rate 16 10/03/24 19:56 Blood Pressure 106/56 L 10/03/24 19:56 Pulse Oximetry 99 10/03/24 19:56 Oxygen Delivery Room Air 10/03/24 19:56 Reviewed Discharge Plan Discharge Clinical Impression: Upper respiratory infection Qualifiers: URI type: unspecified viral URI Qualified Code(s): J06.9 - Acute upper respiratory infection, unspecified Patient Disposition: Home, Self-Care Condition: Stable Instructions: Antibiotic Form, Cold Symptoms (ED) Additional Instructions: Continue with [id number] medications to treat symptoms. Follow-up with primary care provider. Emergency department for new or worse symptoms Patient Language: Armenian Prescriptions: No Action dextroamphetamine-amphetamine [Adderall XR] 20 mg capsule,extended release 24hr 20 mg PO DIRECTED dextroamphetamine-amphetamine [Adderall XR] 10 mg capsule,extended release 24hr 10 mg PO DIRECTED albuterol sulfate 90 mcg/actuation HFA aerosol inhaler 90 mcg INHALATION DIRECTED hydroxyzine pamoate 25 mg capsule 25 mg DIRECTED cyclobenzaprine 10 mg tablet 10 mg PO Q8H PRN (Reason: muscle spasm) 3 Days Qty: 10 0RF naproxen 500 mg tablet 500 mg PO BID PRN (Reason: pain) 7 Days Qty: 14 0RF Follow-up/Referrals: PHYSICIAN,PLANT SENIOR MANAGER [Primary Care Provider] - 2 Weeks Stand Alone Forms: Work/School Release IP
[2024-10-03 20:32] LABS: EDCOVIDSCREEN Negative (Negative); EDINFLUASCREEN Negative (Negative); EDINFLUBSCREEN Negative (Negative); EDSTREPNEGPOS1 Negative (Negative)
== END 2024-10-03 20:35 | disposition home or self-care (01) ==
PROVIDERS: Emergency Provider Nurse Practitioner Family
DX: J06.9 Acute upper respiratory infection, unspecified (principal); Z20.822 Contact with and (suspected) exposure to COVID-19; F17.200 Nicotine dependence, unspecified, uncomplicated
CPT/HCPCS: 87081; 87426; 87804; 87880; 99213; G0463

== ENCOUNTER 2024-10-31 22:26 | Emergency (ER) | payer OTHER, SELFPAY ==
[2024-10-31 22:28] VITALS: BP 95/51; PULSE 86; RESP 17; TEMP 36.6; O2SAT 99
[2024-10-31 22:43] LABS: Basophils Percent Auto 0.4 % (0.2-1.2); Eosinophils Absolute Auto 0.1 K/mm3 (0-0.3); Eosinophils Percent Auto 1.1 % (0-4.4); Hematocrit 40.4 % (37.0-47.0); Hemoglobin 13.8 g/dL (12.0-15.0); Immature Granulocyte Absolute 0.01 K/mm3 (0.00-0.031); Immature Granulocyte Percent A 0.2 % (0-0.5); Lymphocytes Absolute Auto 1.36 K/mm3 (0.9-3.2); Lymphocytes Percent Auto 29.8 % (18.3-44.2); Mean Corpuscular HGB Conc 34.2 g/dl (32-36); Mean Corpuscular Hemoglobin 32.1 pg (26-34); Mean Platelet Volume 10.8 fl (7.4-10.4); Monocytes Absolute Auto 0.6 K/mm3 (0.1-0.6); Monocytes Percent Auto 13.6 % (2.6-8.5); Neutrophils Absolute Auto 2.5 K/mm3 (1.3-6.7); Neutrophils Percent Auto 54.9 % (45.5-73.1); Platelet Count Result 218 k/mm3 (150-375); Red Cell Distribution Width 12.4 % (11.5-14.5); White Blood Count 4.6 K/mm3 (4.5-10.0)
[2024-10-31 22:56] LABS: Alanine Aminotransferase 98 U/L (6-35); Albumin Level 4.2 g/dL (3.5-5.1); Alkaline Phosphatase 105 U/L (38-126); Anion Gap 12 mmol/L (4-12); Aspartate Amino Transferase 83 U/L (14-36); Bilirubin,Total 0.5 mg/dL (0.2-1.3); Blood Urea Nitrogen 17 mg/dL (7-17); Calcium 8.9 mg/dL (8.4-10.2); Carbon Dioxide 21 mmol/L (22-30); Chloride 105 mmol/L (98-107); Estimated CRCL calculation 101 ml/min; Estimated Glomerular Filt Rate > 60; Glucose 94 mg/dL (65-110); Lipase 78 U/L (23-300); Potassium 3.7 mmol/L (3.4-5.0); Sodium 138 mmol/L (137-145)
[2024-10-31 23:20] LABS: Influenza A QL RT-PCR Negative (Negative); Influenza B QL RT-PCR Negative (Negative); RSV RNA, RT-PCR Negative (Negative); SARS-CoV-2 RNA PCR Negative (Negative)
[2024-11-01] MEDS: ONDANSETRON INJ 4 MG/2 ML VIAL IV PUSH (02:56)
[2024-11-01 02:58] LABS: Add Urine Microscopic? YES; Appearance Urine Clear (Clear); Bilirubin Urine Negative (Negative); Blood Urine Negative (Negative); Color Urine Yellow (Yellow); Glucose Urine UA Negative (Negative); Ketones Urine Negative (Negative); Leukocyte Esterase Ur Negative LEU/UL (Negative); Nitrate Urine Negative (Negative); Protein Urine Negative (Negative); Specific Grav Ur 1.027 (1.001-1.035); pH Urine 6.5 (5.0-9.0)
[2024-11-01 02:59] LABS: BEDSIDEPREGUCG Negative (Negative)
--- NOTE | 2024-11-01 03:59 | ED.GENADULT ---
HPI - General Adult General Chief complaint: Nausea/Vomiting/Diarrhea Stated complaint: n/v and no bm since last thursday Time Seen by Provider: 11/01/24 02:28 History of Present Illness HPI narrative: Patient is a 29-year-old female who presents emergency department with chief complaint of abdominal pain and nausea and vomiting. The patient states that multiple family members that had MERS virus and reports that she has not been able to have a bowel movement since Thursday the patient states that she had some very small amounts of stool that came out that her dislike paddles patient states that her abdomen feels full and bloated Related Data Home Medications ?Medication ?Instructions ?Recorded ?Confirmed ?Last Taken ?Type albuterol sulfate 90 mcg/actuation 90 mcg inhalation DIRECTED 05/06/23 05/06/23 Unknown History aerosol inhaler dextroamphetamine-amphetamine ER 10 mg PO DIRECTED 05/06/23 05/06/23 Unknown History 10 mg 24hr capsule,extend release (Adderall XR) dextroamphetamine-amphetamine ER 20 mg PO DIRECTED 05/06/23 05/06/23 Unknown History 20 mg 24hr capsule,extend release (Adderall XR) hydroxyzine pamoate 25 mg capsule 25 mg DIRECTED 05/06/23 05/06/23 Unknown History Allergies Allergy/AdvReac Type Severity Reaction Status Date / Time morphine Allergy Intermediate Confusion Verified 12/12/23 17:29 latex Allergy Unknown ITCHING Verified 12/12/23 17:29 Review of Systems Review of Systems: A 10 system review of systems was completed on the patient and is negative except for what is stated in the HPI. Nursing and ancillary documentation was reviewed. [facility] Past Medical History Medical History History of chlamydia History of pelvic inflammatory disease Surgical History Surgical History History of tubal ligation Family History Family History Other Cerebrovascular accident Diabetes mellitus Family history of alcoholism Family history of arthritis Family history of malignant neoplasm Family history of mental disorder Hypertension Social History Social History Smoking status: Current every day smoker Alcohol intake: current Gender identity (if verbalized by the patient): Female Exam Narrative: GENERAL: Well-appearing, well-nourished, and in no acute distress. HEAD: Normocephalic, atraumatic. EYES: PERRLA and EOMI. ENT: Nares clear, no rhinorrhea or epistaxis. Mucous membranes moist. NECK: Supple. CHEST: Clear to auscultation. No respiratory distress. HEART: Regular rate and rhythm. No murmur heard. Normal peripheral pulses. ABDOMEN: Soft, nontender, nondistended, normal active bowel sounds. : No fecal impaction present on rectal exam EXTREMITIES: Normal range of motion. No edema. SKIN: Warm, dry, no rash. NEURO: No focal deficits. Alert and oriented x3. PSYCH: Normal mood and affect. Course Vital Signs Vital signs: Vital Signs Temperature 36.6 C 10/31/24 22:28 Pulse Rate 86 10/31/24 22:28 Respiratory Rate 17 10/31/24 22:28 Blood Pressure 95/51 L 10/31/24 22:28 Pulse Oximetry 99 10/31/24 22:28 Oxygen Delivery Room Air 10/31/24 22:28 Temperature 36.6 C 10/31/24 22:28 Pulse Rate 76 11/01/24 05:31 Respiratory Rate 15 11/01/24 05:31 Blood Pressure 83/51 L 11/01/24 05:31 Pulse Oximetry 100 11/01/24 05:31 Oxygen Delivery Room Air 10/31/24 22:28 Medical Decision Making [facility] Narrative Medical decision making narrative: Differential diagnosis includes intra-abdominal infection, bowel obstruction, Laboratory studies were obtained on the patient showed a normal CBC CMP was within normal limits urinalysis showed no evidence UTI COVID flu and RSV were negative CT scan of the abdomen pelvis showed a left adnexal cyst most likely a corpus luteum cyst Vital Signs Vital Signs: Vital Signs Temperature 36.6 C 10/31/24 22:28 Pulse Rate 86 10/31/24 22:28 Respiratory Rate 17 10/31/24 22:28 Blood Pressure 95/51 L 10/31/24 22:28 Pulse Oximetry 99 10/31/24 22:28 Oxygen Delivery Room Air 10/31/24 22:28 Temperature 36.6 C 10/31/24 22:28 Pulse Rate 76 11/01/24 05:31 Respiratory Rate 15 11/01/24 05:31 Blood Pressure 83/51 L 11/01/24 05:31 Pulse Oximetry 100 11/01/24 05:31 Oxygen Delivery Room Air 10/31/24 22:28 Lab Data 10/31/24 22:35 10/31/24 22:35 Labs: Lab Results 10/31/24 11/01/24 11/01/24 Range/Units 22:35 02:49 02:57 WBC 4.6 (4.5-10.0) K/mm3 RBC 4.30 (4.2-5.4) M/mm3 Hgb 13.8 (12.0-15.0) g/dL Hct 40.4 (37.0-47.0) % MCV 94.0 (80-100) fl MCH 32.1 (26-34) pg MCHC 34.2 (32-36) g/dl RDW 12.4 (11.5-14.5) % Plt Count 218 (150-375) k/mm3 MPV 10.8 H (7.4-10.4) fl Immature Gran % (Auto) 0.2 (0-0.5) % Neut % (Auto) 54.9 (45.5-73.1) % Lymph % (Auto) 29.8 (18.3-44.2) % [place] % (Auto) 13.6 H (2.6-8.5) % Eos % (Auto) 1.1 (0-4.4) % Baso % (Auto) 0.4 (0.2-1.2) % Lymph # (Auto) 1.36 (0.9-3.2) K/mm3 [place] # (Auto) 0.6 (0.1-0.6) K/mm3 Eos # (Auto) 0.1 (0-0.3) K/mm3 Baso # (Auto) 0.0 (0.0-0.1) K/mm3 Abs Immat Gran (auto) 0.01 (0.00-0.031) K/mm3 Absolute Neuts (auto) 2.5 (1.3-6.7) K/mm3 Absolute Nucleated RBC 0.000 (0.0-0.012) K/mm3 Nucleated RBC % 0.0 (0.0-0.2) % Sodium 138 (137-145) mmol/L Potassium 3.7 (3.4-5.0) mmol/L Chloride 105 (98-107) mmol/L Carbon Dioxide 21 L (22-30) mmol/L Anion Gap 12 (4-12) mmol/L BUN 17 (7-17) mg/dL Creatinine 0.55 L (0.7-1.0) mg/dL Estim Creat Clear Calc 101 ml/min Estimated GFR > 60 (59 - ) Glucose 94 (65-110) mg/dL Calcium 8.9 (8.4-10.2) mg/dL Total Bilirubin 0.5 (0.2-1.3) mg/dL AST 83 H (14-36) U/L ALT 98 H (6-35) U/L Alkaline Phosphatase 105 (38-126) U/L Total Protein 7.0 (6.3-8.2) g/dL Albumin 4.2 (3.5-5.1) g/dL Lipase 78 (23-300) U/L Urine Color Yellow (Yellow) Urine Appearance Clear (Clear) Urine pH 6.5 (5.0-9.0) Ur Specific [place] 1.027 (1.001-1.035) Urine Protein Negative (Negative) mg/dL Urine Glucose (UA) Negative (Negative) mg/dL Urine Ketones Negative (Negative) mg/dL Ur Blood (Man) Negative (Negative) Urine Nitrate Negative (Negative) Urine Bilirubin Negative (Negative) Urine Urobilinogen 4.0 H (<2.0) mg/dL Leukocyte Esterase Rfl Negative (Negative) MARLEE/UL POC Urine HCG, Qual Negative (Negative) Influenza A (RT-PCR) Negative (Negative) Influenza B (RT-PCR) Negative (Negative) RSV (RT-PCR) Negative (Negative) SARS-CoV-2 RNA (RT-PCR) Negative (Negative) Discharge Plan Discharge Clinical Impression: Abdominal pain, Ovarian cyst Patient Disposition: Home, Self-Care Condition: Stable Instructions: Antibiotic Form, Ovarian Cyst (ED), Acute Nausea and Vomiting (ED), Abdominal Pain (ED) Patient Language: [place] Prescriptions: New ondansetron 4 mg tablet,disintegrating 4 mg PO Q8H PRN (Reason: nausea and vomiting) Qty: 10 0RF ibuprofen 800 mg tablet 800 mg PO TID PRN (Reason: pain) Qty: 30 0RF No Action dextroamphetamine-amphetamine [Adderall XR] 20 mg capsule,extended release 24hr 20 mg PO DIRECTED dextroamphetamine-amphetamine [Adderall XR] 10 mg capsule,extended release 24hr 10 mg PO DIRECTED albuterol sulfate 90 mcg/actuation HFA aerosol inhaler 90 mcg INHALATION DIRECTED hydroxyzine pamoate 25 mg capsule 25 mg DIRECTED cyclobenzaprine 10 mg tablet 10 mg PO Q8H PRN (Reason: muscle spasm) 3 Days Qty: 10 0RF naproxen 500 mg tablet 500 mg PO BID PRN (Reason: pain) 7 Days Qty: 14 0RF Follow-up/Referrals: Vinh Ronquillo MD [Physician] - PHYSICIAN,[employer] SUPERVISOR [Primary Care Provider] - Time of Disposition: 05:49
[2024-11-01 04:07] VITALS: BP 109/57; PULSE 76; RESP 14; O2SAT 100
[2024-11-01] MEDS: SODIUM CHLORIDE 0.9% IV 1,000 ML 999 ML (05:23)
[2024-11-01 05:31] VITALS: BP 83/51; PULSE 76; RESP 15; O2SAT 100
[2024-11-01] MEDS: IBUPROFEN 400 MG TABLET 800 MG PO (05:44)
[2024-11-01 06:04] VITALS: BP 94/53; PULSE 73; RESP 14; O2SAT 99
[2024-11-01 06:05] VITALS: BP 94/53; PULSE 73; RESP 14; O2SAT 99
== END 2024-11-01 06:07 | disposition home or self-care (01) ==
PROVIDERS: Emergency Provider Emergency Medicine
DX: R10.9 Unspecified abdominal pain (principal); N83.202 Unspecified ovarian cyst, left side; Z20.822 Contact with and (suspected) exposure to COVID-19; F17.200 Nicotine dependence, unspecified, uncomplicated; Z79.899 Other long term (current) drug therapy
CPT/HCPCS: 36415; 74018; 74177; 80053; 81001; 81025; 83690; 85025; 87637; 96374; 99284; A9270; J2405; J7030; Q9967

== ENCOUNTER 2024-11-04 10:47 | Emergency (ER) | payer OTHER, SELFPAY ==
--- NOTE | 2024-11-04 11:15 | ED_ITS ---
HPI - URI/Sore Throat General Chief Complaint: Upper Respiratory Infection Stated Complaint: EARACHE/SORE THROAT/SWELLING History of Present Illness HPI Narrative: 29 y/o female presented for c/o sore throat and right ear pain. Onset yesterday. Also reports mild post nasal drainage. Pt says she felt like her throat was closing. Took amox and prednisone yesterday. Denies cough, sob, n/v/d/f/c. Pt says she had norovirus and was in the ER 3 days ago and tested negative for flu and covid. Related Data Home Medications ?Medication ?Instructions ?Recorded ?Confirmed ?Last Taken ?Type dextroamphetamine-amphetamine ER 30 mg PO DAILY 11/04/24 11/04/24 Unknown History 30 mg 24hr capsule,extend release lorazepam 0.5 mg tablet 0.5 mg PO Q12H PRN anxiety 11/04/24 11/04/24 Unknown History Allergies Allergy/AdvReac Type Severity Reaction Status Date / Time morphine Allergy Intermediate Confusion Verified 11/04/24 11:06 latex Allergy Unknown ITCHING Verified 11/04/24 11:06 Review of Systems Review of Systems: CONSTITUTIONAL: Denies body aches, fever, chills, or sweats. EYES: Denies visual changes, redness, or discharge. ENT: reports sore throat ear pain Denies rhinorrhea, congestion CARDIOVASCULAR: Denies chest pain, palpitations, or edema. RESPIRATORY: Denies dyspnea. GASTROINTESTINAL: Denies abdominal pain, nausea, vomiting, or diarrhea. SKIN: Denies rash, itching, or wounds. MUSCULOSKELETAL: Denies back pain, joint pain, or myalgia. NEUROLOGIC: Denies headache PMFSH Past Medical History Medical History History of chlamydia History of pelvic inflammatory disease Surgical History Surgical History History of tubal ligation Family History Family History Other Cerebrovascular accident Diabetes mellitus Family history of alcoholism Family history of arthritis Family history of malignant neoplasm Family history of mental disorder Hypertension Social History Social History Smoking status: Current every day smoker Alcohol intake: current Gender identity (if verbalized by the patient): Female Exam Narrative: GENERAL: well-appearing, no acute distress. EYES: conjunctivae clear ENT: Mucous membranes moist. TMs pearly victoria with normal light reflex bilaterally; no tragal tenderness. Oropharynx not erythematous without lesions. Tonsils not enlarged and without exudate. No drooling, no hoarseness, no trismus, uvula midline. No tripod positioning, hot potato voice, or soft palate swelling. NECK: Supple. No lymphadenopathy CHEST: Clear to auscultation, breath sounds equal. No respiratory distress, speaks in full sentences. HEART: Regular rate and rhythm. SKIN: Warm, dry, no rash. NEURO: Alert and oriented x3. Course Course Emergency Course: Patient is aware of diagnosis, understands and agrees to treatment plan. Anticipatory guidance given. Patient agrees to follow-up as directed and is aware of reasons to seek care at the emergency department. Portions of this record may have been created with voice recognition software Level of Care: Express Care Visit Vital Signs Vital signs: Vital Signs Temperature 98 F 11/04/24 11:18 Pulse Rate 107 H 11/04/24 11:18 Respiratory Rate 16 11/04/24 11:18 Blood Pressure 119/54 L 11/04/24 11:18 Pulse Oximetry 100 11/04/24 11:18 Temperature 98 F 11/04/24 11:18 Pulse Rate 107 H 11/04/24 11:18 Respiratory Rate 16 11/04/24 11:18 Blood Pressure 119/54 L 11/04/24 11:18 Pulse Oximetry 100 11/04/24 11:18 MDM - URI/Sore Throat MDM Narrative Medical decision making narrative: neg strep result reviewed with pt. Pt appears anxious questioning why her throat is closing up. Discussed possible etiologies of pharyngitis, will culture. Rx steroid. Advise supportive treatments. Patient is appropriate for outpatient treatment and follow-up. Differential Diagnosis Differential diagnosis: Likely upper respiratory infection, viral infection and pharyngitis Lab Data Labs: Lab Results 11/04/24 Range/Units 11:42 POC Grp A Strep Screen Negative (Negative) Discharge Plan Discharge Clinical Impression: Pharyngitis Patient Disposition: Home, Self-Care Condition: Stable Instructions: Pharyngitis (ED) Additional Instructions: Rapid strep swab was negative today You will be notified in a few days if the culture comes back positive for strep, and appropriate antibiotics will be called in at that time. if symptoms are due to a viral illness, it is not treated with antibiotics. Viral symptoms can be present for up to 10-14 days. Tylenol every 8 hours as needed for pain/fever Soft foods, cool liquids, warm tea. Gargle with warm saltwater twice a day. Chloraseptic spray and throat lozenges. Rest and stay hydrated. --Follow up with your PCP --Go to the ER immediately if you cannot swallow your saliva, trouble breathing/wheezing, throat swelling, pain is persistent and severe Patient Language: [place] Island[place] Prescriptions: New prednisone 20 mg tablet 20 mg PO DAILY Qty: 5 0RF No Action dextroamphetamine-amphetamine 30 mg capsule,extended release 24hr 30 mg PO DAILY lorazepam 0.5 mg tablet 0.5 mg PO Q12H PRN (Reason: anxiety) naproxen 500 mg tablet 500 mg PO BID PRN (Reason: pain) 7 Days Qty: 14 0RF ondansetron 4 mg tablet,disintegrating 4 mg PO Q8H PRN (Reason: nausea and vomiting) Qty: 10 0RF ibuprofen 800 mg tablet 800 mg PO TID PRN (Reason: pain) Qty: 30 0RF Follow-up/Referrals: PHYSICIAN,E[employer]ROMAG[employer] CR[employer] OPERATOR [Primary Care Provider] - Stand Alone Forms: Work/School Release IP Time of Disposition: 11:46
[2024-11-04 11:18] VITALS: BP 119/54; PULSE 107; RESP 16; TEMP 36.6; O2SAT 100
[2024-11-04 11:44] LABS: EDSTREPNEGPOS1 Negative (Negative)
== END 2024-11-04 12:10 | disposition home or self-care (01) ==
PROVIDERS: Emergency Provider Nurse Practitioner Family
DX: J02.9 Acute pharyngitis, unspecified (principal); F17.200 Nicotine dependence, unspecified, uncomplicated
CPT/HCPCS: 87081; 87880; 99213; G0463

== ENCOUNTER 2025-01-14 06:52 | Emergency (ER) | payer OTHER, SELFPAY ==
[2025-01-14] VITALS (14 sets, daily range): BP systolic 95–108; BP diastolic 45–62; PULSE 84–100; RESP 15–17; TEMP 35.4–36.8; O2SAT 94–100
--- NOTE | ~2025-01-14 | XR_ITS ---
EXAMINATION: XR chest 1V portable DATE: 01/14/2025 08:30 INDICATION: Shortness of breath TECHNIQUE: frontal view of the chest was obtained. COMPARISON: Chest radiograph dated 08/20/2022 FINDINGS: The lungs remain clear with no focal airspace opacities, pulmonary edema, pleural effusion or pneumot horax. The cardiomediastinal silhouette is normal. Mild lower thoracic levocurvature. IMPRESSION: 1. No acute cardiopulmonary disease. Reviewed, dictated and finalized at location A.
--- NOTE | ~2025-01-14 | CT_ITS ---
EXAMINATION: CT brain wo con DATE: 01/14/2025 08:03 INDICATION: Seizure TECHNIQUE: Computed tomography (CT) of the head was performed without intravenous contrast. Sagittal and coronal reconstructions were performed. The mA was adjusted according to patient size. Iterative reconstruction technique was employed. The dose-length product was 756.67 mGy-cm. COMPARISON: head CT dated 09/15/2018 FINDINGS: No acute intracranial hemorrhage, acute infarction or abnormal extra axial fluid collection. Ventricl es are normal and symmetric. No mass/mass effect. Mild mucosal thickening the bilateral ethmoid and m axillary sinuses. The orbits and mastoid air cells are normal. IMPRESSION: 1. Normal brain. Reviewed, dictated and finalized at location A. IMPRESSION: 1. Normal brain.
--- NOTE | ~2025-01-14 | CT_ITS ---
EXAMINATION: CTA BRAIN/CAROTID DATE: 01/14/2025 09:20 INDICATION: Seizure. Difficulty breathing. Neck. TECHNIQUE: Computed tomographic angiography (CTA) of the head and neck was performed with 100 mL Omni paque-350 intravenous contrast. Multiplanar reconstructions and maximum intensity projection 3D-recon structions of the carotid arteries and of the intracranial arteries were created by the technologist on a separate workstation. Automated exposure control and iterative reconstruction technique were emp loyed.The dose-length product was 1124.08 mGy-cm. COMPARISON: None. FINDINGS: Carotid arteries: Visualized mid to upper lungs are clear with no lung disease or pulmonary embolism. No pathologically enlarged thoracic lymphadenopathy. Thoracic aorta is normal in caliber with no dissection. Normal va riant separate aortic origin of the left vertebral artery. Bilateral vertebral arteries are codominan t with no evidence stenosis or dissection. There is no evident atherosclerotic plaque with 0% stenosi s of the right and left carotid bulbs relative to normal distal artery lumen diameter (NASCET criteri a). Cervical spine and cervical soft tissues are unremarkable. Intracranial arteries Vertebral arteries are codominant. There is no hemodynamically significant stenosis in the vertebral, basilar and internal carotid arteries. The left P1 and bilateral A1 segments are patent. The right p osterior cerebral artery supplied via a patent right posterior commuting artery. There is also a aguilar nt intercommunicating artery. There are no aneurysms identified. Cerebral arterial arborization appe ars symmetric. No abnormally enhancing brain lesions. IMPRESSION: 1. No evident atherosclerotic plaque with 0% stenosis of the right left carotid bulbs relative to nor mal distal artery lumen diameter (NASCET criteria). 2. Unremarkable cerebral CT angiogram with no stenosis, thrombosis or aneurysm. No abnormally enhanci ng brain lesions. Reviewed, dictated and finalized at location A. IMPRESSION: 1. No evident atherosclerotic plaque with 0% stenosis of the right left carotid bulbs relative to normal distal artery lumen diameter (NASCET criteria). 2. Unremarkable cerebral CT angiogram with no stenosis, thrombosis or aneurysm. No abnormally enhancing brain lesions.
--- NOTE | 2025-01-14 06:53 | ECG_ITS ---
Test Date: 2025-01-14 07:02:58 Measurements Intervals Reynolds Rate: 86 P: 67 SC: 148 QRS: 68 QRSD: 102 T: 37 QT: 376 QTc: 452 Interpretive Statements SINUS RHYTHM POSSIBLE LEFT ATRIAL ENLARGEMENT [-0.1mV P-WAVE IN V1/V2] INCOMPLETE RIGHT BUNDLE BRANCH BLOCK [90+ ms QRS DURATION, TERMINAL R IN V1/V2, 40+ ms S IN I/aVL/V4/V5/V6] ABNORMAL ECG No previous ECG available for comparison Electronically Signed On 01-14-2025 08:12:28 CDT by Taz Patricia M.D.
[2025-01-14 07:10] LABS: Basophils Percent Auto 0.4 % (0.2-1.2); Eosinophils Percent Auto 0.4 % (0-4.4); Hemoglobin 13.7 g/dL (12.0-15.0); Immature Granulocyte Absolute 0.02 K/mm3 (0.00-0.031); Immature Granulocyte Percent A 0.2 % (0-0.5); Lymphocytes Absolute Auto 2.02 K/mm3 (0.9-3.2); Lymphocytes Percent Auto 24.5 % (18.3-44.2); Mean Corpuscular HGB Conc 32.6 g/dl (32-36); Mean Corpuscular Hemoglobin 31.4 pg (26-34); Mean Corpuscular Volume 96.1 fl (80-100); Mean Platelet Volume 10.7 fl (7.4-10.4); Monocytes Absolute Auto 0.3 K/mm3 (0.1-0.6); Monocytes Percent Auto 3.4 % (2.6-8.5); Neutrophils Absolute Auto 5.9 K/mm3 (1.3-6.7); Neutrophils Percent Auto 71.1 % (45.5-73.1); Platelet Count Result 288 k/mm3 (150-375); Red Blood Count 4.37 M/mm3 (4.2-5.4); Red Cell Distribution Width 12.2 % (11.5-14.5); White Blood Count 8.3 K/mm3 (4.5-10.0)
[2025-01-14 07:20] LABS: Alanine Aminotransferase 24 U/L (6-35); Albumin Level 4.8 g/dL (3.5-5.1); Alkaline Phosphatase 69 U/L (38-126); Anion Gap 12 mmol/L (4-12); Aspartate Amino Transferase 31 U/L (14-36); Bilirubin,Total 0.4 mg/dL (0.2-1.3); Blood Urea Nitrogen 8 mg/dL (7-17); Calcium 8.9 mg/dL (8.4-10.2); Carbon Dioxide 24 mmol/L (22-30); Chloride 108 mmol/L (98-107); Estimated CRCL calculation 97 ml/min; Estimated Glomerular Filt Rate > 60; Glucose 102 mg/dL (65-110); Potassium 3.7 mmol/L (3.4-5.0); Sodium 144 mmol/L (137-145)
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
[2025-01-14 07:47] LABS: Add Urine Microscopic? NO; Appearance Urine Clear (Clear); Bilirubin Urine Negative (Negative); Blood Urine Negative (Negative); Color Urine Yellow (Yellow); Glucose Urine UA Negative (Negative); Ketones Urine Negative (Negative); Leukocyte Esterase Ur Negative LEU/UL (Negative); Nitrate Urine Negative (Negative); Protein Urine Negative (Negative); Specific Grav Ur 1.007 (1.001-1.035); Urobilinogen Urine 0.2 mg/dL (<2.0)
[2025-01-14 07:52] LABS: BEDSIDEPREGUCG Negative (Negative)
[2025-01-14] MEDS: SODIUM CHLORIDE 0.9% IV 1,000 ML 999 ML IV CONT (08:00)
--- OUTSIDE RECORDS SUMMARY | 2025-01-14 08:00 | XMS_ITS | Referral Summary ---
Author Organization [facility] Address [address] [place] [address] Care Team Providers Care Transfer Car Operator Name Role Phone No, Physician Primary Care Provider [phone] Allergies Active Allergy Reactions Criticality Noted Date Comments Latex Other (See comments) Low 05/08/2020 Vaginal irritation/swelling Milk Containing Products (Dairy) Stomach upset Low 12/27/2018 UNKNOWN Soy Unknown 12/27/2018 UNKNOWN Wheat Bran Unknown 12/27/2018 UNKNOWN Medications clonazePAM (KlonoPIN) 0.5 mg tablet Take 1 tablet (0.5 mg total) by mouth daily as needed for anxiety 04/25/2021 Active ARIPiprazole (ABILIFY) 5 mg tablet Take 1 tablet (5 mg total) by mouth every morning 06/10/2021 Active ibuprofen (ADVIL,MOTRIN) 800 mg tablet Take 1 tablet (800 mg total) by mouth every 8 (eight) hours as needed for pain Active acetaminophen (TYLENOL) 500 mg tablet Take 2 tablets (1,000 mg total) by mouth every 6 (six) hours as needed for pain Active clonazePAM (KlonoPIN) 0.5 mg tablet Take 1 tablet (0.5 mg total) by mouth 2 (two) times a day as needed for anxiety for up to 10 doses 10 tablet 09/27/2022 Active senna-docusate (PERICOLACE) 8.6-50 mg Take 2 tablets by mouth 2 (two) times a day 30 tablet 10/14/2023 Active acetaminophen (TYLENOL) 500 mg tablet Take 2 tablets (1,000 mg total) by mouth every 6 (six) hours as needed for pain 30 tablet 06/25/2024 Active Active Problems Problem Noted Date Diagnosed Date Closed fracture of angle of jaw 09/03/2021 Overview (09/03/2021): Added automatically from request for surgery [id number] Open fracture of mandible 09/03/2021 Overview (09/03/2021): Added automatically from request for surgery [id number] History of delivery 12/27/2015 Bipolar affective disorder 12/27/2015 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 Never 10/02/2021 Average Number of Drinks Not on file 022 Frequency of Binge Drinking Not on file 10/2021 Personal Safety Answer Date Recorded Have you ever been in or are you currently in a harmful physical or emotional relationship or is someone making you feel afraid or unsafe? Denies 07/16/2024 Comments No Sex and Gender Information Value Date Recorded Sex Assigned at Not on file Legal Sex Female 5:53 AM EP SPECIALIST Gender Identity Female 10/01/2021 12:02 PM EP SPECIALIST Sexual Orientation Not on file Last Filed Vital Signs Vital Sign Reading Time Taken Comments Blood Pressure 98/68 07/21/2024 3:52 PM EP SPECIALIST Pulse 68 07/21/2024 3:52 PM EP SPECIALIST Temperature 36.7 C (98.1 F) 07/21/2024 3:52 PM EP SPECIALIST Respiratory Rate 20 07/21/2024 3:52 PM EP SPECIALIST Oxygen Saturation 98% 07/21/2024 3:52 PM EP SPECIALIST Inhaled Oxygen Concentration - - Weight 56.7 kg (125 lb) 07/21/2024 3:52 PM EP SPECIALIST Height 157.5 cm (5' 2 ) 07/21/2024 3:52 PM EP SPECIALIST Body Mass Index 22.86 07/21/2024 3:52 PM EP SPECIALIST Plan of Treatment Not on file Medical Devices Implanted Type Area Rough Rice Tender Device Identifier Shelf Expiration Date Model / Serial / Lot Whatley Craniomaxillofacial [id number] [place] 2 Smart Lock 9 Hole Mandible Small Plate Bone - Sna - [id number] Implanted:Qty: 2 on 08/28/2021 by Lorenza Campbell MD at [facility] Plate Bilateral : Mandible Whatley Craniomaxillofacial [id number] / NA / NA Whatley Craniomaxillofacial 50- [employer]inger [place] 2 Smartlock 2mm 6mm Self Drill Lock - Sna - [id number] Implanted:Qty: 5 on 08/28/2021 by Lorenza Campbell MD at [facility] Screw Bilateral : Mandible Whatley Craniomaxillofacial 50 / NA / NA Whatley Craniomaxillofacial 50 [place]inger [place] 2 Smartlock 2mm 8mm Self Drill Lock - Sna - [id number] Implanted:Qty: 5 on 08/28/2021 by Lorenza Campbell MD at [facility] Screw Bilateral : Mandible Whatley Craniomaxillofacial 50 / NA / NA Rigoberto Craniomaxillofacial [id number] Smart Lock [place]inger [place] 2 1mm 4 Hole Mandible Mini - [id number] - [id number] Implanted:Qty: 1 on 08/28/2021 by Lorenza Campbell MD at [facility] Bilateral : Mandible Rigoberto Craniomaxillofacial [id number] / [id number] / Rigoberto Craniomaxillofacial [id number] 1.5mm 4 Hole Bar Maxillofacial Mini Plate Bone Titanium - [id number] - [id number] Implanted:Qty: 1 on 08/28/2021 by Lorenza Campbell MD at [facility] Bilateral : Mandible Rigoberto Craniomaxillofacial [id number] / [id number] / Rigoberto Craniomaxillofacial [id number] [place]inger [place] 2 2mm 5mm Self Tap Cross Pin Maxillofacial - [id number] - [id number] Implanted:Qty: 1 on 08/28/2021 by Lorenza Campbell MD at [facility] Bilateral : Mandible Whatley Craniomaxillofacial 50 / 50 / Explanted Type Area Rough Rice Tender Device Identifier Shelf Expiration Date Model / Serial / Lot Rigoberto Craniomaxillofacial 50 Leibinger [place] 2 2mm 5mm Self Tap [place] Maxillofacial - [id number] - [id number] Explanted:Qty: 1 on 08/28/2021 by Lorenza Campbell MD at [facility] Bilateral : Mandible Whatley Craniomaxillofacial 50 / 50 / Rigoberto Craniomaxillofacial [id number] [place]inger [place] 2 2mm 10mm Lock Cross Pin Maxillofacial Screw - [id number] - [id number] Implanted:Qty: 2 on 08/28/2021 by Lorenza Campbell MD at [facility] Explanted:Qty: 2 on 10/02/2021 by Antonio Argueta MD at [facility] Bilateral : Mandible Rigoberto Craniomaxillofacial [id number] / / Rigoberto Craniomaxillofacial 50 [place]inger [place] 2 2.3mm 6mm Self Tap Cross Pin Maxillofacial - [id number] - [id number] Implanted:Qty: 3 on 08/28/2021 by Lorenza Campbell MD at [facility] Explanted:Qty: 3 on 10/02/2021 by Antonio Argueta MD at [facility] Bilateral : Mandible Whatley Craniomaxillofacial 50 / 50--[id number] / Rigoberto Craniomaxillofacial [id number] [place]inger [place] 2 2mm 8mm Lock Cross Pin Mandibular Screw - [id number] - [id number] Implanted:Qty: 2 on 08/28/2021 by Lorenza Campbell MD at [facility] Explanted:Qty: 2 on 10/02/2021 at [facility] Bilateral : Mandible Whatley Craniomaxillofacial [id number] / 50 / Insurance [facility] Care Teams Transfer Car Operator Relationship Specialty Start Date End Date No, Physician PCP - General 09/27/22
--- OUTSIDE RECORDS SUMMARY | 2025-01-14 08:00 | XMS_ITS | Clinical Summary ---
Author Organization [facility] Address [address] [place] [address] Phone Care Team Providers Care Tire Maker Name Role Phone Unavailable Primary Care Provider Unavailabl e Allergies Active Allergy Reactions Criticality Noted Date Comments Latex Other (See Comments) Low 05/08/2020 Vaginal irritation/swelling Milk Containing Products (Dairy) Unknown,Other (See Comments) Low 12/27/2018 UNKNOWN Wheat Bran Unknown 12/27/2018 UNKNOWN Medications ondansetron (ZOFRAN ODT) 4 mg Tablet, Rapid Dissolve Dissolve 1 tablet oral every 4 hours as needed for nausea or vomiting. 3 Active methylphenidate HCl (METADATE ER) 20 mg Extended Release tablet Take 20 mg by mouth daily. 3 Active albuterol sulfate HFA 90 mcg/actuation aerosol inhaler Take 2 Puffs by inhalation every 6 hours as needed for Shortness of Breath. 8.5 Gram 1 3 Active Active Problems No known active problems Social History Tobacco Use Types Packs/Day Years Used Date Smoking Tobacco: Never Assessed Comments Unknown Sex and Gender Information Value Date Recorded Sex Assigned at Not on file Legal Sex Female 10:08 PM CDT Gender Identity Not on file Sexual Orientation Not on file Last Filed Vital Signs Vital Sign Reading Time Taken Comments Blood Pressure 107/64 07/19/2023 2:51 PM ANODE CREW SUPERVISOR Pulse 115 07/19/2023 3:09 PM ANODE CREW SUPERVISOR Temperature - - Respiratory Rate - - Oxygen Saturation 99% 07/19/2023 3:09 PM ANODE CREW SUPERVISOR Inhaled Oxygen Concentration - - Weight 49.9 kg (110 lb) 07/19/2023 2:51 PM ANODE CREW SUPERVISOR Height 157.5 cm (5' 2 ) 07/19/2023 2:51 PM ANODE CREW SUPERVISOR Body Mass Index 20.12 07/19/2023 2:51 PM ANODE CREW SUPERVISOR Plan of Treatment Health Maintenance Due Date Last Done Comments DTAP/TDAP/TD VACCINES (1 - Tdap) 2014 HEPATITIS B VACCINES (1 of 3 - 19+ 3-dose series) 2014 CERVICAL CANCER SCREENING 2016 HPV/Cotest (21-29) 2016 PAP SMEAR 2016 INFLUENZA VACCINE (#1) 2024 HPV VACCINES Aged Out No longer eligi ble based on patient's age to complete this topic
--- OUTSIDE RECORDS SUMMARY | 2025-01-14 08:00 | XMS_ITS | CONTINUITY OF CARE DOCUMENT ---
Author Name clare sparks Address Unknown Organization [facility] Address [address] [place] [address] Phone [phone] Care Team Providers Care Lien Searcher Name Role Phone Vimal Shoemaker MD Unavailable ERICKA JACOME MD Unavailable [phone] ERICKA JACOME MD Unavailable [phone] PROBLEMS Condition Status Date Provider Notes Cardiology examination active Vimal Shoemaker MD Chest pain-type to be determined active Doug Shoemaker MD Syncope active Vimal Shoemaker MD ENCOUNTERS Date Type Provider Location Encounter Diag nosis - In-person encounter Office Visit Vimal Shoemaker MD [place] [facility] Cardiology examinationChest pain-type to be determinedSyncope VITAL SIGNS Date Observation Value Provider Body Mass Index (Ratio) 21.08 kg/m2 Cristian Shoemaker MD blood pressure, resting No Elvin titglory Alegria oxygen saturation, oximetry 98 % Chastity Raji blood pressure, diastolic 60 mm[Hg] Ch astity Raji blood pressure, systolic 92 mm[Hg] Dinorah stity Raji pulse rate 84 /min Chastity Raji respiratory rate E&M 20 /min Chastit y Raji weight E&M 119 [lb_av] Chastity Raji height E&M 63 [in_i] Chastity Raji ALLERGIES No Known Drug Allergies SOCIAL HISTORY Date Observation Value Provider drug use no Vimal Shoemaker MD alcohol use, average drinks per day social Vimal Shoemaker MD alcohol use yes Vimal Shoemaker MD social history E&M S moking History: P atient currently smokes every day. P atient has been counseled to quit. Vimal Shoemaker MD social history reviewed E&M revi ewed - no changes required Vimal Shoemaker MD smoking/tobacco cess ation, patient education and counseling yes Vimal Shoemaker MD smoking history, tot al pack/day 3 Aundrea Alegria cigarette use yes Aundrea Alegria smoking status Current every day smoker C wendy Alegria FAMILY HISTORY Family Member Condition Father Family History of Co ngestive Heart Failure: INSURANCE PROVIDERS Payer name Policy type / Coverage type [place] red republican ID [employer] Medicaid [id number] ADVANCE DIRECTIVES Name Date DISCUSSED - NO DECISION MADE TREATMENT PLAN Date Name Performer Cardiology:Appears t o have evidence of vagoaly mediated syncope. I would recommend she stay hydrated and have plenty of salt in her food. We will acquire her recent labs from the PCP. Vimal Shoemaker MD Cardiology:Appears t o be atypical. Plan for ECHO and Stress test. Vimal Shoemaker MD Date Name Stress Routine Complete Echo HISTORY OF PROCEDURES Procedure Date Procedure Name Provider Procedure Notes S tatus EKG Vimal Shoemaker MD completed
--- OUTSIDE RECORDS SUMMARY | 2025-01-14 08:00 | XMS_ITS | Clinical Summary ---
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 Posttraumatic stress disorder 12/27/2015 Alcohol consumption during 12/27/2015 Surgical History Surgery Date Site/Laterality Comments TUBAL LIGATION 08/31/2016 - 08/30/2017 Bilateral ORIF MANDIBULAR FRACTURE 08/28/2021 BREAST BIOPSY 07/06/2013 Right Medical History Medical History Date Comments Anxiety Family History Medical History Relation Name Comments Heart attack Paternal Grandfather Stroke Paternal Grandmother Anesthesia problems Neg Hx Relation Name Status Comments Father Mother Paternal Grandfather Paternal Grandmother Social History Tobacco Use Types Packs/Day Years Used Date Smoking Tobacco: Every Day Cigarettes Vaping Smokeless Tobacco: Never Alcohol Use Standard Drinks/Week Comments Not Currently 0 (1 standard drink = 0.6 oz pur e alcohol) AUDIT-C Answer Date Recorded Q1: How often do you have a drink containing alc ohol? Never 10/02/2021 Average Number of Drinks Not on file Frequency of Binge Drinking Not on file 10/2021 Personal Safety Answer Date Recorded Have you ever been in or are you currently in a harmful physical or emotional relationship or is someone making you feel afraid or unsafe? 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 Gender Identity Female 10/01/2021 12:02 PM PILOT CONTROL OPERATOR Sexual Orientation Not on file Obstetrics History Last Filed Vital Signs Vital Sign Reading Time Taken Comments Blood Pressure 98/68 07/21/2024 3:52 PM PILOT CONTROL OPERATOR Pulse 68 07/21/2024 3:52 PM PILOT CONTROL OPERATOR Temperature 36.7 C (98.1 F) 07/21/2024 3:52 PM PILOT CONTROL OPERATOR Respiratory Rate 20 07/21/2024 3:52 PM PILOT CONTROL OPERATOR Oxygen Saturation 98% 07/21/2024 3:52 PM PILOT CONTROL OPERATOR Inhaled Oxygen Concentration - - Weight 56.7 kg (125 lb) 07/21/2024 3:52 PM PILOT CONTROL OPERATOR Height 157.5 cm (5' 2 ) 07/21/2024 3:52 PM PILOT CONTROL OPERATOR Body Mass Index 22.86 07/21/2024 3:52 PM PILOT CONTROL OPERATOR Plan of Treatment Health Maintenance Due Date Last Done Comments Cervical Cancer Screening 1995 Depression Screening 1995 Hepatitis C Screening 1995 Varicella Vaccines (1 of 2 - 13+ 2-dose series) 2008 Regular Well Visit/Exam 18-64 2013 Pneumococcal vaccine <65 (1 of 2 - PCV) 2014 Influenza Vaccine (#1) 2024 DTaP/Tdap/Td Vaccine (4 - Td or Tdap) 12/05/2028 12/05/2018, 04/22/2016, 03/10/1996 Hepatitis B Screening Completed 03/10/1996 HPV Vaccines Aged Out No longer eligi ble based on patient's age to complete this topic Medical Devices Implanted Type Area Charge Entry Specialist Device Identifier Shelf Expiration Date Model / Serial / Lot [place] Craniomaxillofacial [id number] Leibinger Lookeba 2 Smart Lock 9 Hole Mandible Small Plate Bone - Sna - [id number] Implanted:Qty: 2 on 08/28/2021 by Lorenza Campbell MD at [facility] Plate Bilateral : Mandible [employer]land Craniomaxillofacial [id number] / NA / NA [employer] Craniomaxillofacial 50 Leibinger Lookeba 2 Smartlock 2mm 6mm Self Drill Lock - Sna - [id number] Implanted:Qty: 5 on 08/28/2021 by Lorenza Campbell MD at [facility] Screw Bilateral : Mandible Rigoberto Craniomaxillofacial 50 / NA / NA [place] Craniomaxillofacial 50 Leibinger Lookeba 2 Smartlock 2mm 8mm Self Drill Lock - Sna - [id number] Implanted:Qty: 5 on 08/28/2021 by Lorenza Campbell MD at [facility] Screw Bilateral : Mandible Rigoberto Craniomaxillofacial 50 / NA / NA Rigoberto Craniomaxillofacial [id number] Smart Lock Leibinger Lookeba 2 1mm 4 Hole Mandible Mini - [id number] - [id number] Implanted:Qty: 1 on 08/28/2021 by Lorenza Campbell MD at [facility] Bilateral : Mandible Courtland Craniomaxillofacial [id number] / [id number] / Courtland Craniomaxillofacial [id number] 1.5mm 4 Hole Bar Maxillofacial Mini Plate Bone Titanium - [id number] - [id number] Implanted:Qty: 1 on 08/28/2021 by Lorenza Campbell MD at [facility] Bilateral : Mandible [place] Craniomaxillofacial [id number] / [id number] / Rigoberto Craniomaxillofacial 50 Leibinger Lookeba 2 2mm 5mm Self Tap Cross Pin Maxillofacial - [id number] - [id number] Implanted:Qty: 1 on 08/28/2021 by Lorenza Campbell MD at [facility] Bilateral : Mandible [place] Craniomaxillofacial 50 / 50 / Explanted Type Area Charge Entry Specialist Device Identifier Shelf Expiration Date Model / Serial / Lot Rigoberto Craniomaxillofacial 50 Leibinger Lookeba 2 2mm 5mm Self Tap Cross Pin Maxillofacial - [id number] - [id number] Explanted:Qty: 1 on 08/28/2021 by Lorenza Campbell MD at [facility] Bilateral : Mandible Rigoberto Craniomaxillofacial 50 / 50 / Rigoberto Craniomaxillofacial [id number] Leibinger Lookeba 2 2mm 10mm Lock Cross Pin Maxillofacial Screw - [id number] - [id number] Implanted:Qty: 2 on 08/28/2021 by Lorenza Campbell MD at [facility] Explanted:Qty: 2 on 10/02/2021 by Antonio Argueta MD at [facility] Bilateral : Mandible Courtland Craniomaxillofacial [id number] / 50 / Courtland Craniomaxillofacial 50 Leibinger Lookeba 2 2.3mm 6mm Self Tap Cross Pin Maxillofacial - [id number] - [id number] Implanted:Qty: 3 on 08/28/2021 by Lorenza Campbell MD at [facility] Explanted:Qty: 3 on 10/02/2021 by Antonio Argueta MD at [facility] Bilateral : Mandible Rigoberto Craniomaxillofacial [id number] / 50--2340 6 / Courtland Craniomaxillofacial [id number] Leibinger Lookeba 2 2mm 8mm Lock Cross Pin Mandibular Screw - - [id number] Implanted:Qty: 2 on 08/28/2021 by Lorenza Campbell MD at [facility] Explanted:Qty: 2 on 10/02/2021 at [facility] Bilateral : Mandible Rigoberto Craniomaxillofacial [id number] / 50 / Insurance [facility] Care Teams Health Informatics Advisor Relationship Specialty Start Date End Date No, Physician PCP - General 09/27/22
[2025-01-14 08:25] LABS: Amphetamine Screen Urine Positive (Negative); Barbiturate Screen Urine Negative (Negative); Benzodiazepines Screen Urine Positive (Negative); Cannabinoid Screen Urine Negative (Negative); Cocaine Screen Urine Negative (Negative); Methadone Screen Urine Negative (Negative); Opiate Screen Urine Negative (Negative); Phencyclidine Screen Urine Negative (Negative)
[2025-01-14 08:37] LABS: Ethanol 255 mg/dL (<10)
[2025-01-14] MEDS: MIDAZOLAM HCL (*CRX) 2 MG/2 ML VIAL (08:40)
[2025-01-14] MEDS: DEXTROSE 5% IVPB (09:10)
[2025-01-14] MEDS: LEVETIRACETAM IVPB (09:10)
[2025-01-14 10:45] LABS: Influenza A QL RT-PCR Negative (Negative); Influenza B QL RT-PCR Negative (Negative); RSV RNA, RT-PCR Negative (Negative); SARS-CoV-2 RNA PCR Negative (Negative)
[2025-01-14] MEDS: ONDANSETRON INJ 4 MG/2 ML VIAL IV PUSH (11:42)
--- NOTE | 2025-01-14 12:48 | PC.NURSE ---
this RN attempted to contact [facility] for pt and received no answer. Left voicemail to call back.
--- NOTE | 2025-01-14 13:40 | PC.NURSE ---
Pt.'s bf (David Chapman) will be coming to pick her up w/in the hour. eta 14:40
[2025-01-14] MEDS: ACETAMINOPHEN 325 MG TABLET 650 MG PO (14:20)
== END 2025-01-14 14:55 | disposition home or self-care (01) ==
PROVIDERS: Student in an Organized Health Care Education/Training Program; Emergency Provider Student in an Organized Health Care Education/Training Program
DX: R56.9 Unspecified convulsions (principal); F10.129 Alcohol abuse with intoxication, unspecified; Y90.8 Blood alcohol level of 240 mg/100 ml or more; Z20.822 Contact with and (suspected) exposure to COVID-19; F17.200 Nicotine dependence, unspecified, uncomplicated
CPT/HCPCS: 36415; 70450; 70496; 70498; 71045; 80053; 80307; 81003; 81025; 82077; 83605; 84443; 85025; 87637; 93005; 96361; 96365; 96375; 99284; A9270; J1953; J2250; J2405; J7030; Q9967

== ENCOUNTER 2025-03-02 06:46 | Emergency (ER) | payer OTHER, SELFPAY ==
[2025-03-02] VITALS (7 sets, daily range): BP systolic 89–106; BP diastolic 55–70; PULSE 81–91; RESP 20; TEMP 36.1; O2SAT 100
--- NOTE | ~2025-03-02 | CT_ITS ---
Non-contrast Head CT History: Seizure COMPARISON: 01/14/2025 Technique: Axial non-contrast imaging of the brain was performed. Dose reduction technique was used on this scan by utilizing automated exposure control and iterative reconstruction technique. The dose -length product (DLP) was 681.00 mGy-cm. Findings: There is no evidence of intracranial hemorrhage, mass lesion, or acute infarct. Brain par enchyma appears normal. The ventricles and subarachnoid spaces are normal in size. The calvarium ap pears normal. The visualized paranasal sinuses and mastoid air cells are clear. Impression: No significant abnormality seen. Reviewed, dictated and finalized at location . Impression: No significant abnormality seen.
--- NOTE | ~2025-03-02 | XR_ITS ---
CHEST RADIOGRAPH CLINICAL HISTORY: altered mental status . COMPARISON: 01/14/2025 TECHNIQUE: Single portable view of the chest. FINDINGS The cardiomediastinal silhouette is unremarkable. The lungs are clear. IMPRESSION: No focal infiltrate or effusion. Reviewed, dictated and finalized at location []
--- NOTE | 2025-03-02 06:50 | ECG_ITS ---
Test Date: 2025-03-02 06:48:06 Measurements Intervals [place] Rate: 89 P: 55 DC: 149 QRS: 52 QRSD: 109 T: 35 QT: 386 QTc: 470 Interpretive Statements SINUS RHYTHM POSSIBLE LEFT ATRIAL ENLARGEMENT [-0.1mV P-WAVE IN V1/V2] INCOMPLETE RIGHT BUNDLE BRANCH BLOCK [90+ ms QRS DURATION, TERMINAL R IN V1/V2, 40+ ms S IN I/aVL/V4/V5/V6] Compared to ECG 01/14/2025 07:02:58 No significant changes Electronically Signed On 03-02-2025 16:46:35 CDT by Michael Torres
[2025-03-02 07:09] LABS: Add Urine Microscopic? NO; Appearance Urine Clear (Clear); Glucose Urine UA Negative (Negative); Leukocyte Esterase Ur Negative LEU/UL (Negative); Nitrate Urine Negative (Negative); Specific Grav Ur 1.016 (1.001-1.035)
[2025-03-02 07:25] LABS: Alanine Aminotransferase 21 U/L (6-35); Albumin Level 4.5 g/dL (3.5-5.1); Alkaline Phosphatase 67 U/L (38-126); Anion Gap 12 mmol/L (4-12); Aspartate Amino Transferase 29 U/L (14-36); Bilirubin,Total 0.4 mg/dL (0.2-1.3); Blood Urea Nitrogen 4 mg/dL (7-17); Calcium 9.3 mg/dL (8.4-10.2); Carbon Dioxide 27 mmol/L (22-30); Chloride 106 mmol/L (98-107); Estimated CRCL calculation 97 ml/min; Estimated Glomerular Filt Rate > 60; Glucose 96 mg/dL (65-110); Potassium 3.9 mmol/L (3.4-5.0); Sodium 145 mmol/L (137-145); Total Protein 7.5 g/dL (6.3-8.2)
[2025-03-02 07:32] LABS: Pregnancy On Board Control Positive
[2025-03-02 07:49] LABS: Hematocrit 39.2 % (37.0-47.0); Hemoglobin 13.1 g/dL (12.0-15.0); Immature Granulocyte Percent A 0.2 % (0-0.5); Lymphocytes Absolute Auto 1.69 K/mm3 (0.9-3.2); Mean Corpuscular HGB Conc 33.4 g/dl (32-36); Mean Corpuscular Hemoglobin 31.9 pg (26-34); Mean Corpuscular Volume 95.4 fl (80-100); Nucleated Red Blood Cells Absolute Auto 0.000 K/mm3 (0.0-0.012); Nucleated Red Blood Cells Perc 0.0 % (0.0-0.2); Platelet Count Result 298 k/mm3 (150-375); Red Blood Count 4.11 M/mm3 (4.2-5.4); White Blood Count 5.6 K/mm3 (4.5-10.0)
--- OUTSIDE RECORDS SUMMARY | 2025-03-02 07:59 | XMS_ITS | Clinical Summary ---
Author Organization [facility] Address [address] [place] [address] Phone Care Team Providers Care Tufting Machine Fixer Name Role Phone Unavailable Primary Care Provider [...] Comments Blood Pressure 107/64 07/19/2023 2:51 PM [employer] [place] Pulse 115 07/19/2023 3:09 PM [employer] Temperature - - Respiratory Rate - - Oxygen Saturation 99% 07/19/2023 3:09 PM [employer] [place] Inhaled Oxygen Concentration - - Weight 49.9 kg (110 lb) 07/19/2023 2:51 PM [employer] Height 157.5 cm (5' 2) 07/19/2023 2:51 PM [employer] Body Mass Index 20.12 07/19/2023 2:51 PM [employer] Plan of Treatment Health Maintenance Due Date Last Done Comments DTAP/TDAP/TD VACCINES (1 - Tdap) 2014 HEPATITIS B VACCINES (1 of 3 - 19+ 3-dose series) 2014 CERVICAL CANCER SCREENING 2016 HPV/Cotest (21-29) 2016 PAP SMEAR 2016 INFLUENZA VACCINE (#1) 2025 HPV VACCINES Aged Out No longer eligi ble based on patient's age to complete this topic
[2025-03-02 08:00] LABS: INR 1.0; Prothrombin Time 13.2 Seconds (11.1-14.7)
[2025-03-02] MEDS: SODIUM CHLORIDE 0.9% IV 1,000 ML 999 ML IV CONT (08:00)
[2025-03-02 08:01] LABS: Partial Thromboplastin Time 29.2 Seconds (22.3-36.8)
[2025-03-02 08:04] LABS: Procalcitonin < 0.0 ng/mL
--- NOTE | 2025-03-02 08:41 | PC.NURSE ---
Pt still not responding to verbal stimuli at this time. Family states pt was awake and asking when she can go home after her CT. Family states pt was prescribed seizure meds but does not take them.
--- NOTE | 2025-03-02 09:08 | ED_ITS ---
HPI - General Adult General Chief complaint: Seizure Stated complaint: seizures x 4 Time Seen by Provider: 03/02/25 07:50 History of Present Illness HPI narrative: Patient 29-year-old female presents emergency department chief complaint of seizure. Patient had 4 witnessed seizures was given 2.5 mg of Versed x2 doses prior to arrival the patient was seen here several months ago and was found to have new onset seizures was started on anti left aches at that time and was supposed to follow-up with neurology apparently the patient has not followed up with neurology as of this time Related Data Home Medications ?Medication ?Instructions ?Recorded ?Confirmed ?Last Taken ?Type dextroamphetamine-amphetamine ER 30 mg PO DAILY 11/04/24 01/14/25 Unknown History 30 mg 24hr capsule,extend release Allergies Allergy/AdvReac Type Severity Reaction Status Date / Time morphine Allergy Intermediate Confusion Verified 11/04/24 11:06 latex Allergy Unknown ITCHING Verified 11/04/24 11:06 Review of Systems 2 Review of Systems: A 10 system review of systems was completed on the patient and is negative except for what is stated in the HPI. Nursing and ancillary documentation was reviewed. [facility] Past Medical History Medical History History of seizure History of chlamydia History of pelvic inflammatory disease Surgical History Surgical History History of tubal ligation Family History Family History Other Cerebrovascular accident Diabetes mellitus Family history of alcoholism Family history of arthritis Family history of malignant neoplasm Family history of mental disorder Hypertension Social History Social History Smoking status: Current every day smoker Alcohol intake: current Gender identity (if verbalized by the patient): Female Exam 2 Narrative: GENERAL: Well-appearing, well-nourished, and in no acute distress. HEAD: Normocephalic, atraumatic. EYES: PERRLA and EOMI. ENT: Nares clear, no rhinorrhea or epistaxis. Mucous membranes moist. NECK: Supple. CHEST: Clear to auscultation. No respiratory distress. HEART: Regular rate and rhythm. No murmur heard. Normal peripheral pulses. ABDOMEN: Soft, nontender, nondistended, normal active bowel sounds. EXTREMITIES: Normal range of motion. No edema. SKIN: Warm, dry, no rash. NEURO: No focal deficits. Alert and oriented x3. PSYCH: Normal mood and affect. Course Vital Signs Vital signs: Vital Signs Temperature 36.1 C L 03/02/25 06:35 Pulse Rate 90 03/02/25 06:35 Respiratory Rate 20 03/02/25 06:35 Blood Pressure 106/59 L 03/02/25 06:35 Pulse Oximetry 100 03/02/25 06:35 Oxygen Delivery Room Air 03/02/25 06:35 Temperature 36.1 C L 03/02/25 06:35 Pulse Rate 91 03/02/25 10:13 Respiratory Rate 20 03/02/25 10:13 Blood Pressure 89/56 L 03/02/25 10:13 Pulse Oximetry 100 03/02/25 10:13 Oxygen Delivery Room Air 03/02/25 06:51 Medical Decision Making MDM Narrative Medical decision making narrative: Differential diagnosis includes recurrent seizure, noncompliance Patient was noncompliant with her seizure medications she was prescribed previously. The patient underwent CT head and laboratory testing within normal limits. The patient is back to her neurological baseline patient was reporting some irritation in her eyes of bilateral eyes were examined under fluorescein with no corneal abrasion or foreign body noted Vital Signs Vital Signs: Vital Signs Temperature 36.1 C L 03/02/25 06:35 Pulse Rate 90 03/02/25 06:35 Respiratory Rate 20 03/02/25 06:35 Blood Pressure 106/59 L 03/02/25 06:35 Pulse Oximetry 100 03/02/25 06:35 Oxygen Delivery Room Air 03/02/25 06:35 Temperature 36.1 C L 03/02/25 06:35 Pulse Rate 91 03/02/25 10:13 Respiratory Rate 20 03/02/25 10:13 Blood Pressure 89/56 L 03/02/25 10:13 Pulse Oximetry 100 03/02/25 10:13 Oxygen Delivery Room Air 03/02/25 06:51 Lab Data 03/02/25 07:43 03/02/25 06:56 Labs: Lab Results 03/02/25 03/02/25 Range/Units 06:56 07:43 WBC 5.6 (4.5-10.0) K/mm3 RBC 4.11 L (4.2-5.4) M/mm3 Hgb 13.1 (12.0-15.0) g/dL Hct 39.2 (37.0-47.0) % MCV 95.4 (80-100) fl MCH 31.9 (26-34) pg MCHC 33.4 (32-36) g/dl RDW 12.3 (11.5-14.5) % Plt Count 298 (150-375) k/mm3 MPV 10.1 (7.4-10.4) fl Immature Gran % (Auto) 0.2 (0-0.5) % Neut % (Auto) 62.3 (45.5-73.1) % Lymph % (Auto) 30.1 (18.3-44.2) % Geary % (Auto) 5.3 (2.6-8.5) % Eos % (Auto) 1.4 (0-4.4) % Baso % (Auto) 0.7 (0.2-1.2) % Lymph # (Auto) 1.69 (0.9-3.2) K/mm3 Geary # (Auto) 0.3 (0.1-0.6) K/mm3 Eos # (Auto) 0.1 (0-0.3) K/mm3 Baso # (Auto) 0.0 (0.0-0.1) K/mm3 Abs Immat Gran (auto) 0.01 (0.00-0.031) K/mm3 Absolute Neuts (auto) 3.5 (1.3-6.7) K/mm3 Absolute Nucleated RBC 0.000 (0.0-0.012) K/mm3 Nucleated RBC % 0.0 (0.0-0.2) % PT 13.2 (11.1-14.7) Seconds INR 1.0 APTT 29.2 (22.3-36.8) Seconds Sodium 145 (137-145) mmol/L Potassium 3.9 (3.4-5.0) mmol/L Chloride 106 (98-107) mmol/L Carbon Dioxide 27 (22-30) mmol/L Anion Gap 12 (4-12) mmol/L BUN 4 L (7-17) mg/dL Creatinine 0.66 L (0.7-1.0) mg/dL Estim Creat Clear Calc 97 ml/min Estimated GFR > 60 (59 - ) Glucose 96 (65-110) mg/dL Lactic Acid 2.0 (0.7-2.0) mmol/L Calcium 9.3 (8.4-10.2) mg/dL Total Bilirubin 0.4 (0.2-1.3) mg/dL AST 29 (14-36) U/L ALT 21 (6-35) U/L Alkaline Phosphatase 67 (38-126) U/L Total Protein 7.5 (6.3-8.2) g/dL Albumin 4.5 (3.5-5.1) g/dL Procalcitonin < 0.0 ng/mL Urine Color Yellow (Yellow) Urine Appearance Clear (Clear) Urine pH 7.0 (5.0-9.0) Ur Specific [place] 1.016 (1.001-1.035) Urine Protein Negative (Negative) mg/dL Urine Glucose (UA) Negative (Negative) mg/dL Urine Ketones Negative (Negative) mg/dL Ur Blood (Man) Negative (Negative) Urine Nitrate Negative (Negative) Urine Bilirubin Negative (Negative) Urine Urobilinogen 0.2 (<2.0) mg/dL Leukocyte Esterase Rfl Negative (Negative) MARLEE/UL Urine Test Negative Urine Opiates Screen Negative (Negative) Urine Methadone Screen Negative (Negative) Ur Barbiturates Screen Negative (Negative) Ur Phencyclidine Scrn Negative (Negative) Ur Amphetamine Screen Negative (Negative) U Benzodiazepines Scrn Positive A (Negative) Urine Cocaine Screen Negative (Negative) U Cannabinoids Screen Negative (Negative) Discharge Plan Discharge Clinical Impression: Seizure Patient Disposition: Home Condition: Stable Instructions: Antibiotic Form, Generalized Tonic Clonic Seizures (ED) Additional Instructions: No driving until you are cleared by Neurology or primary care It is recommended that you follow-up with neurology as soon as possible please make sure that you were taking the seizure medications that you were prescribed previously Yo been given a refill of the medication Patient Language: Danish Prescriptions: New levetiracetam [Keppra] 500 mg tablet 500 mg PO BID Qty: 60 0RF No Action dextroamphetamine-amphetamine 30 mg capsule,extended release 24hr 30 mg PO DAILY levetiracetam [Keppra] 500 mg tablet 500 mg PO BID 30 Days Qty: 60 0RF Follow-up/Referrals: Amnada Herrera MD [Physician] - PHYSICIAN,CORRECTIONAL CASE RECORDS SUPERVISOR [Primary Care Provider] - Aguilar Marie MD [Physician] - Time of Disposition: 10:51
[2025-03-02 09:21] LABS: Cannabinoid Screen Urine Negative (Negative)
--- NOTE | 2025-03-02 10:26 | PC.NURSE ---
States burning and pain to bilat eyes when they are open. Flushed with NS without relief. Redness noted to bilat eyes. Pt continues to rub eyes after informed not to.
== END 2025-03-02 11:05 | disposition home or self-care (01) ==
PROVIDERS: Student in an Organized Health Care Education/Training Program; Emergency Provider Emergency Medicine
DX: R56.9 Unspecified convulsions (principal); F17.200 Nicotine dependence, unspecified, uncomplicated; Z79.899 Other long term (current) drug therapy
CPT/HCPCS: 36415; 70450; 71045; 80053; 80307; 81003; 81025; 83605; 84145; 85025; 85610; 85730; 93005; 96360; 99284; J7030

== ENCOUNTER 2025-07-18 13:18 | Emergency (ER) | payer OTHER, SELFPAY ==
--- NOTE | 2025-07-18 13:21 | ED_ITS ---
HPI - URI/Sore Throat General Chief Complaint: Upper Respiratory Infection Stated Complaint: Sore Throat/Headache Time Seen by Provider: 07/18/25 13:40 Source: patient, RN notes reviewed and old records reviewed Mode of arrival: ambulatory Limitations: no limitations History of Present Illness HPI Narrative: 29-year-old female presents to the [facility] with complaints of intermittent headache for 7 days. Patient also complains of a sore throat that started today possibly yesterday with postnasal drainage. Had been taking DayQuil ibuprofen and gargling. Denies fevers, chest pain, shortness of breath. Related Data Home Medications ?Medication ?Instructions ?Recorded ?Confirmed ?Last Taken ?Type dextroamphetamine-amphetamine 20 07/18/25 Unknown Hi story mg tablet dextroamphetamine-amphetamine ER PO 07/18/25 Unknown History 20 mg 24hr capsule,extend release lorazepam 0.5 mg tablet mg 07/18/25 Unknown History Allergies Allergy/AdvReac Type Severity Reaction Status Date / Time latex Allergy Unknown ITCHING Verified 07/18/25 13:20 morphine AdvReac Intermediate Confusion Verified 07/18/25 13:20 Review of Systems Review of Systems: All systems reviewed & are unremarkable except as noted in HPI and below Constitutional: Constitutional: Reports as per HPI and Reports headache(s) ENT: Reports as per HPI and Reports sore throat Cardiovascular: Cardiovascular: Reports no additional cardiovascular complaints, Denies chest pain and Denies dyspnea Respiratory: Respiratory: Reports no additional respiratory complaints, Denies chest congestion, Denies cough and Denies dyspnea Musculoskeletal: Musculoskeletal: Reports no additional musculoskeletal complaints Integumentary/Breasts: Skin/Breast: Reports system reviewed and no additional complaints, except as docu PMFSH Past Medical History Medical History History of seizure History of chlamydia History of pelvic inflammatory disease Surgical History Surgical History History of tubal ligation Family History Family History Other Cerebrovascular accident Diabetes mellitus Family history of alcoholism Family history of arthritis Family history of malignant neoplasm Family history of mental disorder Hypertension Social History Social History Smoking status: Current every day smoker Alcohol intake: current Gender identity (if verbalized by the patient): Female Comments At the time of my signature, I reviewed and agree with the nursing past medical, surgical, social, and family history. There is no relevant family history pertinent to the patient complaint. Exam Const: General: cooperative, healthy appearing, comfortable, no acute distress, well developed, alert and well nourished Nutritional Appearance: well nourished Orientation/consciousness: patient oriented x3 Limitations: no limitations HENMT: Head: normal to inspection Ears: hearing grossly normal bilaterally, external ears normal, TM's normal bilaterally, EAC's normal, mastoids normal and no periauricular adenopathy Face/Nose/Sinus: Normal external nose present Mouth: Yes Normal oral and palatal mucosa present, Yes lip normal, Yes tongue normal and Yes moist mucous membranes Throat: posterior oropharynx normal, uvula midline, postnasal drainage and no uvular edema Eyes: General: appearance normal, both eyes and all related structures Alignment and Position: alignment normal Neck: Neck: normal visual inspection, full ROM, no lymphadenopathy and no meningeal signs Chest: Chest palpation & inspection: normal inspection of the chest Resp: Effort & Inspection: normal respiratory effort and able to speak in complete sentences Auscultation: clear to auscultation bilaterally, no crackles, no rales, no rhonchi and no wheezes Cardio: Rate: regular rate Skin: General skin exam: normal color and no rashes or lesions noted Neuro: General: patient oriented x3, gait normal, moves all extremities and no meningeal signs Cognition (Neuro): normal cognition Speech: normal speech Gait exam (Neuro): Normal gait present Extrem: General: normal to inspection, full ROM, capillary refill normal and normal gait Psych: Appearance: grossly normal and well kempt Mental Status: mental status grossly normal Speech and movement: Normal speech and movement present and Clear speech present Affect: normal affect Attitude: cooperative Course Course Level of Care: Express Care Visit Vital Signs Vital signs: Vital Signs Temperature 97.9 F 07/18/25 13:36 Pulse Rate 97 07/18/25 13:36 Respiratory Rate 16 07/18/25 13:36 Blood Pressure 101/70 07/18/25 13:36 Pulse Oximetry 99 07/18/25 13:36 Temperature 97.9 F 07/18/25 13:36 Pulse Rate 97 07/18/25 13:36 Respiratory Rate 16 07/18/25 13:36 Blood Pressure 101/70 07/18/25 13:36 Pulse Oximetry 99 07/18/25 13:36 Reviewed MDM - URI/Sore Throat MDM Narrative Medical decision making narrative: Patient sitting comfortably in exam room. Patient is nontoxic, vitals stable. Strep test is negative. Patient presents with headache, sore throat, postnasal drainage. No acute findings other than postnasal drainage noted on exam. Patient is appropriate for outpatient treatment with close follow-up Discharge instructions reviewed with patient, as well as provided in writing per nursing staff. The instructions also include specific and strict return/GO TO THE ER as well as f/u information. All questions have been answered, and the patient deny any further questions with discharge and discharge plan. Some parts of this dictation were generated by voice recognition software and may contain typographical and/or grammatical inaccuracies. Differential Diagnosis Differential diagnosis: Likely upper respiratory infection, otitis media, sinusitis, viral infection, bronchitis, influenza and pharyngitis Lab Data Labs: Lab Results 07/18/25 Range/Units 13:28 POC Grp A Strep Screen Negative (Negative) reviewed Critical Care Time Critical Care Time Critical Care Time: No Discharge Plan Discharge Clinical Impression: PND (post-nasal drip) Upper respiratory infection Qualifiers: URI type: unspecified viral URI Qualified Code(s): J06.9 - Acute upper respiratory infection, unspecified Pharyngitis Qualifiers: Pharyngitis/tonsillitis etiology: other specified organisms Qualified Code(s): J02.8 - Acute pharyngitis due to other specified organisms Patient Disposition: Home Condition: Stable Instructions: Antibiotic Form, Pharyngitis (ED), Upper Respiratory Infection (DC), Postnasal Drip (DC) Additional Instructions: Your rapid strep swab was negative today at [facility]. A throat culture will be sent to the laboratory for further testing. If the test is positive, you will receive a phone call within 48 hours and an appropriate antibiotic will be initiated at that time. Your symptoms are likely due to a viral illness, which is not treated with antibiotics. Typically viral infections last 7-10 days, can linger for couple of weeks. It is very important to treat your symptoms. Drink plenty of water, Gatorade, Pedialyte, ice pops or Jell-O. -Alternate Tylenol and Motrin per package directions for fever or pain. You can alternate every 4 hours -Antihistamine medication such as Zyrtec/Claritin/Carlyn during the day can help improve symptoms. -doing daily nasal irrigations can help relieve pressure your sinuses. Things like a Neti pot -Use Flonase twice a day for 5 days then daily to help reduce the inflammation and dry up your sinuses. -You can also use Mucinex. Be sure to drink plenty of water with this medication at least 8 ounces with every dose and it is important to drink 8 to 1 0 glasses of water per day. Water is a natural decongestant -Eat and drink things that are easy to swallow, like tea or soup, or popsicles. -Oral rinses such as: Salt water gargles and/or may use topical anesthetic (eg. Chloraseptic spray) or lozenges to relieve dryness or throat pain). -Frequent hand washing or hand commutator tester is one of the best ways to prevent spread of infection. -Using a vaporizer or humidifier at night will also help thin secretions and help with coughing up phlegm. -Follow up with primary care provider in 7-10 days if condition is not improving - For new or worsening symptoms go directly to the nearest ER Patient Language: Estonian Prescriptions: No Action lorazepam 0.5 mg tablet dextroamphetamine-amphetamine 20 mg capsule,extended release 24hr PO dextroamphetamine-amphetamine 20 mg tablet Follow-up/Referrals: PHYSICIAN,OIL WELL FISHING TOOL TECHNICIAN [Primary Care Provider, Internal Medicine] Stand Alone Forms: Work/School Release IP Time of Disposition: 13:58
[2025-07-18 13:36] VITALS: BP 101/70; PULSE 97; RESP 16; TEMP 36.6; O2SAT 99
[2025-07-18 13:49] LABS: EDSTREPNEGPOS1 Negative (Negative)
== END 2025-07-18 14:04 | disposition home or self-care (01) ==
PROVIDERS: Emergency Provider Nurse Practitioner
DX: R09.82 Postnasal drip (principal); J06.9 Acute upper respiratory infection, unspecified; J02.8 Acute pharyngitis due to other specified organisms; F17.200 Nicotine dependence, unspecified, uncomplicated
CPT/HCPCS: 87081; 87880; 99213; G0463

== ENCOUNTER 2025-07-31 09:08 | Emergency (ER) | payer OTHER, SELFPAY ==
--- NOTE | ~2025-07-31 | XR_ITS ---
Examination: XR chest 2V Clinical History: CP, SOB X 2 WEEKS Comparison: 03/02/2025 Technique: PA and Lateral Findings: Cardiomediastinal silhouette normal size and configuration. Lungs clear. No acute bony abnormality. IMPRESSION: 1. No acute cardiopulmonary findings. Reviewed, dictated and finalized at location R. GER LPN
--- NOTE | 2025-07-31 09:09 | ECG_ITS ---
Test Date: 2025-07-31 09:18:32 Measurements Intervals [place] Rate: 89 P: 68 [place]: 152 QRS: 81 QRSD: 99 T: 53 QT: 350 QTc: 427 Interpretive Statements SINUS RHYTHM LEFT ATRIAL ENLARGEMENT INCOMPLETE RIGHT BUNDLE BRANCH BLOCK BASELINE ARTIFACT- I, II, AVR, AVL ,AVF, V3 BORDERLINE ECG Compared to ECG 03/02/2025 06:48:06 No significant changes Electronically Signed On 07-31-2025 09:35:07 MARKING ROOM SUPERVISOR by Efren De Jesus D.O.
[2025-07-31 09:14] VITALS: BP 106/61; PULSE 107; RESP 20; O2SAT 100
[2025-07-31 09:21] VITALS: O2SAT 100
--- OUTSIDE RECORDS SUMMARY | 2025-07-31 09:48 | XMS_ITS | Clinical Summary ---
Author Organization [facility] Address [address] [place] [address] Care Team Providers Care Mortar Carrier Name Role Phone No, Physician Primary Care Provider [phone] Allergies Active Allergy Reactions Criticality Noted Date [...] (09/03/2021): Added automatically from request for surgery [id number] Open fracture of mandible 09/03/2021 Overview (09/03/2021): Added automatically from request for surgery [id number] History of delivery 12/27/2015 Bipolar affective disorder [...] on file Legal Sex Female 5:53 AM MAILROOM ASSOCIATE Gender Identity Female 10/01/2021 12:02 PM MAILROOM ASSOCIATE Sexual Orientation Not on file Last Filed Vital Signs Vital Sign Reading Time Taken Comments Blood Pressure 98/68 07/21/2024 3:52 PM MAILROOM ASSOCIATE Pulse 68 07/21/2024 3:52 PM MAILROOM ASSOCIATE Temperature 36.7 C (98.1 F) 07/21/2024 3:52 PM MAILROOM ASSOCIATE Respiratory Rate 20 07/21/2024 3:52 PM MAILROOM ASSOCIATE Oxygen Saturation 98% 07/21/2024 3:52 PM MAILROOM ASSOCIATE Inhaled Oxygen Concentration - - Weight 56.7 kg (125 lb) 07/21/2024 3:52 PM MAILROOM ASSOCIATE Height 157.5 cm (5' 2) 07/21/2024 3:52 PM MAILROOM ASSOCIATE Body Mass Index 22.86 07/21/2024 3:52 PM MAILROOM ASSOCIATE Plan of Treatment Health Maintenance Due Date Last Done Comments Cervical Cancer Screening 1995 Depression Screening 1995 Hepatitis C Screening 1995 Varicella Vaccines (1 of 2 - 13+ 2-dose series) 2008 Regular Well Visit/Exam 18-64 2013 Pneumococcal vaccine <65 (1 of 2 - PCV) 2014 HPV Vaccines (1 - 3-dose SCDM series) 2022 Influenza Vaccine (#1) 2025 DTaP/Tdap/Td Vaccine (4 - Td or Tdap) 12/05/2028 12/05/2018, 04/22/2016, 03/10/1996 Hepatitis B Screening Completed 03/10/1996 Medical Devices Implanted Type Area Travel Information Center Supervisor Device Identifier Shelf Expiration Date Model / Serial / Lot Rigoberto Craniomaxillofacial [id number] Leibinger [place] 2 Smart Lock 9 Hole Mandible Small Plate Bone - Sna - [id number] Implanted:Qty: 2 on 08/28/2021 by Lorenza Campbell MD at [facility] Plate Bilateral : Mandible [place] Craniomaxillofacial [id number] / NA / NA [place] Craniomaxillofacial 50 Leibinger [place] 2 Smartlock 2mm 6mm Self Drill Lock - Sna - [id number] Implanted:Qty: 5 on 08/28/2021 by Lorenza Campbell MD at [facility] Screw Bilateral : Mandible [place] Craniomaxillofacial 50 / NA / NA [place] Craniomaxillofacial 50- Leibinger [place] 2 Smartlock 2mm 8mm Self Drill Lock - Sna - [id number] Implanted:Qty: 5 on 08/28/2021 by Lorenza Campbell MD at [facility] Screw Bilateral : Mandible Rigoberto Craniomaxillofacial [id number] / NA / NA [place] Craniomaxillofacial [id number] Smart Lock Leibinger [place] 2 1mm 4 Hole Mandible Mini - [id number] - [id number] Implanted:Qty: 1 on 08/28/2021 by Lorenza Campbell MD at [facility] Bilateral : Mandible Rigoberto Craniomaxillofacial [id number] / [id number] / Rigoberto Craniomaxillofacial [id number] 1.5mm 4 Hole Bar Maxillofacial Mini Plate Bone Titanium - [id number] - [id number] Implanted:Qty: 1 on 08/28/2021 by Lorenza Campbell MD at [facility] Bilateral : Mandible Rigoberto Craniomaxillofacial [id number] / 92- / [place] Craniomaxillofacial 50 Leibinger [place] 2 2mm 5mm Self Tap Cross Pin Maxillofacial - [id number] - [id number] Implanted:Qty: 1 on 08/28/2021 by Lorenza Campbell MD at [facility] Bilateral : Mandible [place] Craniomaxillofacial 50 / / Explanted Type Area Travel Information Center Supervisor Device Identifier Shelf Expiration Date Model / Serial / Lot Rigoberto Craniomaxillofacial 50 Leibinger [place] 2 2mm 5mm Self Tap Cross Pin Maxillofacial - [id number] - [id number] Explanted:Qty: 1 on 08/28/2021 by Lorenza Campbell MD at [facility] Bilateral : Mandible Rigoberto Craniomaxillofacial 50 / 50 / Rigoberto Craniomaxillofacial [id number] Leibinger [place] 2 2mm 10mm Lock Cross Pin Maxillofacial Screw - [id number] - [id number] Implanted:Qty: 2 on 08/28/2021 by Lorenza Campbell MD at [facility] Explanted:Qty: 2 on 10/02/2021 by Antonio Argueta MD at [facility] Bilateral : Mandible [place] Craniomaxillofacial [id number] / 50 / Rigoberto Craniomaxillofacial 50 Leibinger [place] 2 2.3mm 6mm Self Tap Cross Pin Maxillofacial - [id number] - [id number] Implanted:Qty: 3 on 08/28/2021 by Lorenza Campbell MD at [facility] Explanted:Qty: 3 on 10/02/2021 by Antonio Argueta MD at [facility] Bilateral : Mandible Rigoberto Craniomaxillofacial [id number] / 50--2340 6 / [place] Craniomaxillofacial [id number] Leibinger [place] 2 2mm 8mm Lock Cross Pin Mandibular Screw - - [id number] Implanted:Qty: 2 on 08/28/2021 by Lorenza Campbell MD at [facility] Explanted:Qty: 2 on 10/02/2021 at [facility] Bilateral : Mandible Rigoberto Craniomaxillofacial [id number] / 50 / Insurance [facility] Care Teams Mortar Carrier Relationship Specialty Start Date End Date No, Physician PCP - General 09/27/22
--- OUTSIDE RECORDS SUMMARY | 2025-07-31 09:48 | XMS_ITS | Clinical Summary ---
Author Organization [facility] Address [address] [place] [address] Phone Care Team Providers Care Fuels Engineer Name Role Phone Unavailable Primary Care Provider [...] Comments Blood Pressure 107/64 07/19/2023 2:51 PM AUDIO VISUAL COLLECTIONS COORDINATOR Pulse 115 07/19/2023 3:09 PM AUDIO VISUAL COLLECTIONS COORDINATOR Temperature - - Respiratory Rate - - Oxygen Saturation 99% 07/19/2023 3:09 PM AUDIO VISUAL COLLECTIONS COORDINATOR Inhaled Oxygen Concentration - - Weight 49.9 kg (110 lb) 07/19/2023 2:51 PM AUDIO VISUAL COLLECTIONS COORDINATOR Height 157.5 cm (5' 2) 07/19/2023 2:51 PM AUDIO VISUAL COLLECTIONS COORDINATOR Body Mass Index 20.12 07/19/2023 2:51 PM AUDIO VISUAL COLLECTIONS COORDINATOR Plan of Treatment Health Maintenance Due Date Last Done Comments DTAP/TDAP/TD VACCINES (1 - Tdap) 2014 HEPATITIS B VACCINES (1 of 3 - 19+ 3-dose series) 09/01 CERVICAL CANCER SCREENING 2016 HPV/Cotest (21-29) 2016 PAP SMEAR 2016 HPV VACCINES (1 - 3-dose SCDM series) 2022 INFLUENZA VACCINE (#1) 2025
--- OUTSIDE RECORDS SUMMARY | 2025-07-31 09:48 | XMS_ITS | Clinical Summary ---
Author Organization [facility] Address [address] [place] [address] Care Team Providers Care Electronic Equipment Set Up Operator Name Role Phone Roosevelt Hakw MD Primary Care Provider [phone] Source Comments [facility],non-owned Affiliates and Associated Physician Practices is amultiple site organization consisting of ambulatory clinics and hospital sitesin [place], [place] and [place]. This disclosure is being madepursuant to the Care Everywhere program and may not contain all information available regarding this patient. Last updated 18.[facility] Allergies Active Allergy Reactions Criticality Noted Date Comments Lactose GI Discomfort Low 12/27/2018 UNKNOWN Latex Other Low 05/08/2020 Vaginal irritation/swelling Soy Allergy Unknown 12/27/2018 UNKNOWN Wheat Bran Unknown 12/27/2018 UNKNOWN Medications * Be aware that medications may not be up to date on this document. Alwaysverify current medications with the patient. quetiapine (SEROQUEL) 300 MG tablet Take 300 mg by mouth at bedtime. Active methylphenidate CR (CONCERTA) 54 MG tablet Take 54 mg by mouth every morning. Active LITHIUM CARBONATE PO Take 300 mg by mouth daily. Active lithium carbonate (LITHOTABS) 300 MG tablet Take 300 mg by mouth daily after lunch. Active Adderall XR 20 MG capsule Take 1 (one) capsule by mouth once daily 02/06/2023 Active albuterol HFA (Proventil; Ventolin; Proair) 108 (90 Base) MCG/ACT inhaler Inhale 2 (two) puffs by mouth every 4 hours as needed 6.7 g 02/20/2023 Active methylPREDNISol one (Medrol Dosepak) 4 MG tablet Take by mouth as directed Follow package insert dosing for six day supply. 21 tablet 02/20/2023 Active Social History Tobacco Use Types Packs/Day Years Used Date Smoking Tobacco: Never Smokeless Tobacco: Current Tobacco Cessation:Ready to Q uit: Not Asked; Counseling Given: Not Answered Alcohol Use Standard Drinks/Week Comments Yes 1.7 (1 standard drink = 0.6 oz p ure alcohol) PHQ-2 Answer Date Recorded PHQ2 TOTAL SCORE 0 02/20/2023 Comments Unknown Sex and Gender Information Value Date Recorded Sex Assigned at Not on file Legal Sex Female 6:25 PM FIRE SPRINKLER INSPECTOR Gender Identity Not on file Sexual Orientation Not on file Last Filed Vital Signs Vital Sign Reading Time Taken Comments Blood Pressure 105/59 02/20/2023 12:24 PM CDT Pulse 95 02/20/2023 12:24 PM CDT Temperature 36.9 C (98.4 F) 02/20/2023 12:24 PM CDT Respiratory Rate 12 02/20/2023 12:24 PM CDT Oxygen Saturation 98% 02/20/2023 12:24 PM CDT Inhaled Oxygen Concentration - - Weight 52.2 kg (115 lb) 02/20/2023 12:24 PM CDT Height 158.8 cm (5' 2.5) 02/20/2023 12:24 PM CD T Body Mass Index 20.7 02/20/2023 12:24 PM CDT Plan of Treatment Health Maintenance Due Date Last Done Comments HIV SCREENING 2010 HEPATITIS C SCREENING 09/18/2013 DTAP/TDAP/TD VACCINES (1 - Tdap) 2014 HEPATITIS B VACCINE (1 of 3 - 19+ 3-dose series) 2014 PAP SMEAR 2016 HPV VACCINE (1 - 3-dose SCDM series) 2022 DEPRESSION SCREENING 08/31/2024 02/20/2023 COVID-19 VACCINE ( - 2024-2 6 season) 2025 INFLUENZA VACCINE (#1) 2025 ZOSTER VACCINE (1 of 2) 2045 HIB VACCINE Aged Out No longer eligi ble based on patient's age to complete this topic MENINGOCOCCAL (Group B) VACC INE SHARED DECISION-MAKING Aged Out No longer eligibl e based on patient's age to complete this topic MENINGOCOCCAL GROUPS A/C/Y/W VACCINE Aged Out No longer eligible b ased on patient's age to complete this topic PNEUMOCOCCAL VACCINE Aged Out No long er eligible based on patient's age to complete this topic Insurance MEDICAID [employer] [place] Care Teams Electronic Equipment Set Up Operator Relationship Specialty Start Date End Date Roosevelt Hawk MD [address] [place] [address] PCP - General 01/13/10
--- NOTE | 2025-07-31 09:55 | ED.URI ---
HPI - URI/Sore Throat General Chief Complaint: Chest Pain Stated Complaint: CHEST PAIN Time Seen by Provider: 07/31/25 09:12 History of Present Illness HPI Narrative: For the last few weeks, patient has been having congestion, cough, some chest discomfort with coughing. No fevers or chills. Sick contact. Related Data Home Medications ?Medication ?Instructions ?Recorded ?Confirmed ?Last Taken ?Type dextroamphetamine-amphetamine 20 07/18/25 Unknown History mg tablet dextroamphetamine-amphetamine ER PO 07/18/25 Unknown History 20 mg 24hr capsule,extend release lorazepam 0.5 mg tablet mg 07/18/25 Unknown History Allergies Allergy/AdvReac Type Severity Reaction Status Date / Time latex Allergy Unknown ITCHING Verified 07/31/25 09:16 morphine AdvReac Intermediate Confusion Verified 07/31/25 09:16 Review of Systems Review of Systems: All systems reviewed & are unremarkable except as noted in HPI and below PMFSH Past Medical History Medical History History of seizure History of chlamydia History of pelvic inflammatory disease Surgical History Surgical History History of tubal ligation Family History Family History Other Cerebrovascular accident Diabetes mellitus Family history of alcoholism Family history of arthritis Family history of malignant neoplasm Family history of mental disorder Hypertension Social History Social History Smoking status: Current every day smoker Alcohol intake: current Gender identity (if verbalized by the patient): Female Exam Narrative: EXAMINATION OF ORGAN SYSTEMS/BODY AREAS: Constitutional: Vital signs per nursing GENERAL:[No acute distress, non-toxic appearing.] HEAD: Normal with no signs of head trauma. EYES: EOMI, conjunctiva normal ENT: Nasal congestion and some sinus discomfort LUNGS: Nonlabored breathing. Clear to auscultation bilaterally HEART: Slightly tachycardic ABD: [Soft], [nontender to palpation] EXT: Normal range of motion, no lower extremity swelling or pain SKIN: [No rashes or lesions.] NEURO: [Alert and oriented x 3. No gross focal sensory or strength deficits.] PSYCH: Normal affect Course Vital Signs Vital signs: Vital Signs Pulse Rate 107 H 07/31/25 09:14 Respiratory Rate 20 07/31/25 09:14 Blood Pressure 106/61 07/31/25 09:14 Pulse Oximetry 100 07/31/25 09:14 Oxygen Delivery Room Air 07/31/25 09:14 Pulse Rate 105 H 07/31/25 10:40 Respiratory Rate 18 07/31/25 10:40 Blood Pressure 104/66 07/31/25 10:40 Pulse Oximetry 99 07/31/25 10:40 Oxygen Delivery Room Air 07/31/25 09:21 MDM - URI/Sore Throat MDM Narrative Medical decision making narrative: Patient presents with ongoing URI symptoms lasting for 2-3 weeks. She has a lot of nasal congestion here, otherwise is well appearing, lungs are clear. No DVT symptoms and symptoms much more consistent with URI so I have low concern for PE. Swabs were negative, chest x-ray does not show pneumonia. EKG - 12-Lead: Performed at 0918. Interpreted by me. [Sinus rhythm]. Rate 89. [Normal] axis. NH-interval [normal]. QRS duration [normal]. QTc [normal]. [No ST segment elevation or depression]. [T-wave normal]. Impression: No EKG evidence of acute ischemia or dysrhythmia. I will start her on antibiotics since she has been having sinusitis for more than 10 days, and have her follow-up with PCP if symptoms do not improve. Patient agreeable to plan. Return precautions discussed. Lab Data Labs: Lab Results 07/31/25 Range/Units 09:20 Influenza A (RT-PCR) Negative (Negative) Influenza B (RT-PCR) Negative (Negative) RSV (RT-PCR) Negative (Negative) SARS-CoV-2 RNA (RT-PCR) Negative (Negative) Discharge Plan Discharge Clinical Impression: Sinusitis Patient Disposition: Home Condition: Stable Instructions: Antibiotic Form, Sinusitis (ED) Additional Instructions: You can take the medications as prescribed, and follow up with ENT and your primary care doctor. You can always return to the ER for any further issues. Patient Language: Azeri Prescriptions: New fluticasone propionate [Allergy Relief (fluticasone)] 50 mcg/actuation spray,suspension 1 spray intranasal DAILY Qty: 16 0RF Rx Instructions: administer into each nostril amoxicillin-pot clavulanate 875-125 mg tablet 1 tablet PO Q12H Qty: 10 0RF No Action lorazepam 0.5 mg tablet dextroamphetamine-amphetamine 20 mg capsule,extended release 24hr PO dextroamphetamine-amphetamine 20 mg tablet Follow-up/Referrals: Julio Cesar Fuentes MD [Physician, Ear, Nose, Throat] - 3 Days PHYSICIAN,ELEVATOR CONSTRUCTOR HELPER [Primary Care Provider, Internal Medicine] Aguilar Marie MD [Physician, Family Practice] - 3 Days
[2025-07-31 10:00] LABS: Influenza A QL RT-PCR Negative (Negative); Influenza B QL RT-PCR Negative (Negative); RSV RNA, RT-PCR Negative (Negative); SARS-CoV-2 RNA PCR Negative (Negative)
[2025-07-31 10:40] VITALS: BP 104/66; PULSE 105; RESP 18; O2SAT 99
--- OUTSIDE RECORDS SUMMARY | 2025-07-31 10:44 | XMS_ITS | Clinical Summary ---
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 Gender Identity Female 10/01/2021 12:02 PM GENERAL PRODUCTION WORKER Sexual Orientation Not on file Last Filed Vital Signs Vital Sign Reading Time Taken Comments Blood Pressure 98/68 07/21/2024 3:52 PM GENERAL PRODUCTION WORKER Pulse 68 07/21/2024 3:52 PM GENERAL PRODUCTION WORKER Temperature 36.7 C (98.1 F) 07/21/2024 3:52 PM GENERAL PRODUCTION WORKER Respiratory Rate 20 07/21/2024 3:52 PM GENERAL PRODUCTION WORKER Oxygen Saturation 98% 07/21/2024 3:52 PM GENERAL PRODUCTION WORKER Inhaled Oxygen Concentration - - Weight 56.7 kg (125 lb) 07/21/2024 3:52 PM GENERAL PRODUCTION WORKER Height 157.5 cm (5' 2) 07/21/2024 3:52 PM GENERAL PRODUCTION WORKER Body Mass Index 22.86 07/21/2024 3:52 PM GENERAL PRODUCTION WORKER Plan of Treatment Health Maintenance Due Date [...] Completed 03/10/1996 Medical Devices Implanted Type Area Bumper Operator Device Identifier Shelf Expiration Date Model / Serial / Lot Rigoberto Craniomaxillofacial [id number] Leibinger [place] 2 Smart Lock 9 Hole Mandible Small Plate Bone - Sna - [id number] Implanted:Qty: 2 on 08/28/2021 by Lorenza Campbell MD at [facility] Plate Bilateral : Mandible [place] Craniomaxillofacial [id number] / NA / NA [place] Craniomaxillofacial 50 Leibinger [place] 2 Smartlock 2mm 6mm Self Drill Lock - Sna - [id number] Implanted:Qty: 5 on 08/28/2021 by Lorenza Campbell MD at [facility] Screw Bilateral : Mandible [place] Craniomaxillofacial 50 / NA / NA [place] Craniomaxillofacial 50- Leibinger [place] 2 Smartlock 2mm 8mm Self Drill Lock - Sna - [id number] Implanted:Qty: 5 on 08/28/2021 by Lorenza Campbell MD at [facility] Screw Bilateral : Mandible Rigoberto Craniomaxillofacial [id number] / NA / NA [place] Craniomaxillofacial [id number] Smart Lock Leibinger [place] 2 1mm 4 Hole Mandible Mini - [id number] - [id number] Implanted:Qty: 1 on 08/28/2021 by Lorenza Campbell MD at [facility] Bilateral : Mandible Rigoberto Craniomaxillofacial [id number] / [id number] / Rigoberto Craniomaxillofacial [id number] 1.5mm 4 Hole Bar Maxillofacial Mini Plate Bone Titanium - [id number] - [id number] Implanted:Qty: 1 on 08/28/2021 by Lorenza Campbell MD at [facility] Bilateral : Mandible Rigoberto Craniomaxillofacial [id number] / 92- / [place] Craniomaxillofacial 50 Leibinger [place] 2 2mm 5mm Self Tap Cross Pin Maxillofacial - H85-70745 - [id number] Implanted:Qty: 1 on 08/28/2021 by Lorenza Campbell MD at [facility] Bilateral : Mandible [place] Craniomaxillofacial 50 / / Explanted Type Area Bumper Operator Device Identifier Shelf Expiration Date Model / Serial / Lot Rigoberto Craniomaxillofacial 50 Leibinger [place] 2 2mm 5mm Self Tap Cross Pin Maxillofacial - [id number] - [id number] Explanted:Qty: 1 on 08/28/2021 by Lorenza Campbell MD at [facility] Bilateral : Mandible Rigoberto Craniomaxillofacial 50 / 50 / Rigoberto Craniomaxillofacial [id number] Leibinger [place] 2 2mm 10mm Lock Cross Pin Maxillofacial Screw - Y26-44982 - [id number] Implanted:Qty: 2 on 08/28/2021 by Lorenza Campbell MD at [facility] Explanted:Qty: 2 on 10/02/2021 by Antonio Argueta MD at [facility] Bilateral : Mandible [place] Craniomaxillofacial [id number] / 50 / Rigoberto Craniomaxillofacial 50 Leibinger [place] 2 2.3mm 6mm Self Tap Cross Pin Maxillofacial - D48--12391 - [id number] Implanted:Qty: 3 on 08/28/2021 by Lorenza Campbell MD at [facility] Explanted:Qty: 3 on 10/02/2021 by Antonio Argueta MD at [facility] Bilateral : Mandible Rigoberto Craniomaxillofacial 50-21475 / 50--2340 6 / [place] Craniomaxillofacial [id number] Leibinger [place] 2 2mm 8mm Lock Cross Pin Mandibular Screw - - [id number] Implanted:Qty: 2 on 08/28/2021 by Lorenza Campbell MD at [facility] Explanted:Qty: 2 on 10/02/2021 at [facility] Bilateral : Mandible Rigoberto Craniomaxillofacial [id number] / 50 / Insurance [facility] Care Teams Scheduling Assistant Relationship Specialty Start Date End Date No, Physician PCP - General 09/27/22
--- OUTSIDE RECORDS SUMMARY | 2025-07-31 10:44 | XMS_ITS | Clinical Summary ---
Author Organization [facility] Address [address] [place] [address] Care Team Providers Care Tray Line Worker Name Role Phone Roosevelt Hawk MD Primary Care Provider [phone] Source Comments [facility],non-owned Affiliates and Associated Physician Practices is amultiple site organization consisting of ambulatory clinics and hospital sitesin [place], [place], [place] and [place]. This disclosure is being madepursuant to the Care Everywhere program and may not contain all information available regarding this patient. 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
--- OUTSIDE RECORDS SUMMARY | 2025-07-31 10:44 | XMS_ITS | Clinical Summary ---
Author Organization [facility] Address [address] [place] [address] Phone Care Team Providers Care Asset Protection Agent Name Role Phone Unavailable Primary Care Provider [...] Comments Blood Pressure 107/64 07/19/2023 2:51 PM PRODUCTION SUPPORT CONSULTANT Pulse 115 07/19/2023 3:09 PM PRODUCTION SUPPORT CONSULTANT Temperature - - Respiratory Rate - - Oxygen Saturation 99% 07/19/2023 3:09 PM PRODUCTION SUPPORT CONSULTANT Inhaled Oxygen Concentration - - Weight 49.9 kg (110 lb) 07/19/2023 2:51 PM PRODUCTION SUPPORT CONSULTANT Height 157.5 cm (5' 2) 07/19/2023 2:51 PM PRODUCTION SUPPORT CONSULTANT Body Mass Index 20.12 07/19/2023 2:51 PM PRODUCTION SUPPORT CONSULTANT Plan of Treatment Health Maintenance Due Date Last Done Comments DTAP/TDAP/TD VACCINES (1 - Tdap) 2014 HEPATITIS B VACCINES (1 of 3 - 19+ 3-dose series) 09/01 CERVICAL CANCER SCREENING 2016 HPV/Cotest (21-29) 2016 PAP SMEAR 2016 HPV VACCINES (1 - 3-dose SCDM series) 2022 INFLUENZA VACCINE (#1) 2025
== END 2025-07-31 10:47 | disposition home or self-care (01) ==
PROVIDERS: Emergency Provider Emergency Medicine
DX: J32.9 Chronic sinusitis, unspecified (principal); Z20.822 Contact with and (suspected) exposure to COVID-19; I45.10 Unspecified right bundle-branch block; F17.210 Nicotine dependence, cigarettes, uncomplicated
CPT/HCPCS: 71046; 87637; 93005; 99284

== ENCOUNTER 2025-08-10 23:25 | Emergency (ER) | payer OTHER, SELFPAY ==
--- NOTE | ~2025-08-10 | CT_ITS ---
EXAM/PROCEDURE: CT facial bones wo con HISTORY: right mandibular pain, poss dislocation COMPARISON: None available. TECHNIQUE: Facial bone CT FINDINGS: No fracture subluxation or dislocation seen. The right TMJ and right mandible appears within normal limits. Internal fixation hardware present in the left mandibular body which appears intact. No gross hardware failure fracture loosening. Bones and soft tissues about the mandible appear normal other than minimal mucoperiosteal thickening in the maxillary sinuses and ethmoid air cells. IMPRESSION: No acute findings. Left mandibular fixation hardware appears intact. Minimal paranasal sinus disease. NOTE: Preliminary radiologist report provided by [facility] radiologist/physician. Reviewed, dictated and finalized at location A. EMS SOFTWARE ENGINEER IMPRESSION: No acute findings. Left mandibular fixation hardware appears intact. Minimal pa ranasal sinus disease. NOTE: Preliminary radiologist report provided by [facility] radiologist/physician .
--- OUTSIDE RECORDS SUMMARY | 2025-08-10 23:28 | XMS_ITS | Clinical Summary ---
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 Gender Identity Female 10/01/2021 12:02 PM SECONDARY SPANISH TEACHER Sexual Orientation Not on file Last Filed Vital Signs Vital Sign Reading Time Taken Comments Blood Pressure 98/68 07/21/2024 3:52 PM SECONDARY SPANISH TEACHER Pulse 68 07/21/2024 3:52 PM SECONDARY SPANISH TEACHER Temperature 36.7 C (98.1 F) 07/21/2024 3:52 PM SECONDARY SPANISH TEACHER Respiratory Rate 20 07/21/2024 3:52 PM SECONDARY SPANISH TEACHER Oxygen Saturation 98% 07/21/2024 3:52 PM SECONDARY SPANISH TEACHER Inhaled Oxygen Concentration - - Weight 56.7 kg (125 lb) 07/21/2024 3:52 PM SECONDARY SPANISH TEACHER Height 157.5 cm (5' 2) 07/21/2024 3:52 PM SECONDARY SPANISH TEACHER Body Mass Index 22.86 07/21/2024 3:52 PM SECONDARY SPANISH TEACHER Plan of Treatment Health Maintenance Due Date [...] Completed 03/10/1996 Medical Devices Implanted Type Area Strike Plate Attacher Device Identifier Shelf Expiration Date Model / Serial / Lot [place] Craniomaxillofacial [id number] Leibinger [place] 2 Smart Lock 9 Hole Mandible Small Plate Bone - Sna - [id number] Implanted:Qty: 2 on 08/28/2021 by Lorenza Campbell MD at [facility] Plate Bilateral : Mandible Rigoberto Craniomaxillofacial [id number] / NA / NA [place] Craniomaxillofacial 50 Leibinger [place] 2 Smartlock 2mm 6mm Self Drill Lock - Sna - [id number] Implanted:Qty: 5 on 08/28/2021 by Lorenza Campbell MD at [facility] Screw Bilateral : Mandible [place] Craniomaxillofacial 50 / NA / NA [place] Craniomaxillofacial 50- Leibinger [place] 2 Smartlock 2mm 8mm Self Drill Lock - Sna - [id number] Implanted:Qty: 5 on 08/28/2021 by Lorenza Campbell MD at [facility] Screw Bilateral : Mandible [place] Craniomaxillofacial [id number] / NA / NA Rigoberto Craniomaxillofacial 55-15686 Smart Lock Leibinger [place] 2 1mm 4 Hole Mandible Mini - D04-26320 - [id number] Implanted:Qty: 1 on 08/28/2021 by Lorenza Campbell MD at [facility] Bilateral : Mandible [place] Craniomaxillofacial [id number] / [id number] / Rigoberto Craniomaxillofacial [id number] 1.5mm 4 Hole Bar Maxillofacial Mini Plate Bone Titanium - K78-59523 - [id number] Implanted:Qty: 1 on 08/28/2021 by Lorenza Campbell MD at [facility] Bilateral : Mandible Rigoberto Craniomaxillofacial [id number] / 92- / [place] Craniomaxillofacial 50 Leibinger [place] 2 2mm 5mm Self Tap Cross Pin Maxillofacial - D51-26032 - [id number] Implanted:Qty: 1 on 08/28/2021 by Lorenza Campbell MD at [facility] Bilateral : Mandible [place] Craniomaxillofacial 50 / / Explanted Type Area Strike Plate Attacher Device Identifier Shelf Expiration Date Model / Serial / Lot Rigoberto Craniomaxillofacial 50 Leibinger [place] 2 2mm 5mm Self Tap Cross Pin Maxillofacial - U78-49895 - [id number] Explanted:Qty: 1 on 08/28/2021 by Lorenza Campbell MD at [facility] Bilateral : Mandible Rigoberto Craniomaxillofacial 50 / 50 / [place] Craniomaxillofacial [id number] Leibinger [place] 2 2mm 10mm Lock Cross Pin Maxillofacial Screw - K79-55857 - [id number] Implanted:Qty: 2 on 08/28/2021 by Lorenza Campbell MD at [facility] Explanted:Qty: 2 on 10/02/2021 by Antonio Argueta MD at [facility] Bilateral : Mandible Rigoberto Craniomaxillofacial [id number] / 50 / Rigoberto Craniomaxillofacial 50 Leibinger [place] 2 2.3mm 6mm Self Tap Cross Pin Maxillofacial - P84--49444 - [id number] Implanted:Qty: 3 on 08/28/2021 by Lorenza Campbell MD at [facility] Explanted:Qty: 3 on 10/02/2021 by Antonio Argueta MD at [facility] Bilateral : Mandible [place] Craniomaxillofacial [id number] / 50--2340 6 / Rigoberto Craniomaxillofacial [id number] Leibinger [place] 2 2mm 8mm Lock Cross Pin Mandibular Screw - - [id number] Implanted:Qty: 2 on 08/28/2021 by Lorenza Campbell MD at [facility] Explanted:Qty: 2 on 10/02/[address] [facility] Bilateral : Mandible [place] Craniomaxillofacial [id number] / 50 / Insurance [facility] Care Teams Work Force Advisor Relationship Specialty Start Date End Date No, Physician PCP - General 09/27/22
--- OUTSIDE RECORDS SUMMARY | 2025-08-10 23:28 | XMS_ITS | Clinical Summary ---
Author Organization [facility] Address [address] [place] [address] Care Team Providers Care Feed Management Advisor Name Role Phone Roosevelt Hawk MD Primary Care Provider [phone] Source Comments [facility],non-owned Affiliates and Associated Physician Practices is amultiple site organization consisting of ambulatory clinics and hospital sitesin [place], [place], [place] and [place]. This disclosure is being madepursuant to the Care Everywhere program and may not contain all information available regarding this patient. 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
--- OUTSIDE RECORDS SUMMARY | 2025-08-10 23:28 | XMS_ITS | Clinical Summary ---
Author Organization [facility] Address [address] [place] [address] Phone Care Team Providers Care Gas Pumping Station Supervisor Name Role Phone Unavailable Primary Care Provider [...] Comments Blood Pressure 107/64 07/19/2023 2:51 PM CRAYON SORTING MACHINE FEEDER Pulse 115 07/19/2023 3:09 PM CRAYON SORTING MACHINE FEEDER Temperature - - Respiratory Rate - - Oxygen Saturation 99% 07/19/2023 3:09 PM CRAYON SORTING MACHINE FEEDER Inhaled Oxygen Concentration - - Weight 49.9 kg (110 lb) 07/19/2023 2:51 PM CRAYON SORTING MACHINE FEEDER Height 157.5 cm (5' 2) 07/19/2023 2:51 PM CRAYON SORTING MACHINE FEEDER Body Mass Index 20.12 07/19/2023 2:51 PM CRAYON SORTING MACHINE FEEDER Plan of Treatment Health Maintenance Due Date Last Done Comments DTAP/TDAP/TD VACCINES (1 - Tdap) 2014 HEPATITIS B VACCINES (1 of 3 - 19+ 3-dose series) 09/01 CERVICAL CANCER SCREENING 2016 HPV/Cotest (21-29) 2016 PAP SMEAR 2016 INFLUENZA VACCINE (#1) 2025 HPV VACCINES (No Doses Required) Completed
--- OUTSIDE RECORDS SUMMARY | 2025-08-10 23:28 | XMS_ITS | Continuity of Care Document ---
Author Organization [facility] Address [address] [place] [address] Care Team Providers Care Analog Circuit Designer Name Role Phone ALESSIO ERICKA Primary Care Provider [phone] Assessment Encounter Date Assessment Date Assessment LastModified by Organization Details LastModified Time 07/25/2025 07/25/2025 Annual gynecological exam performed. Patient will come back in a year unless there are new symptoms. [email or web address] Not available 07/25/2025 12:49:58 Plan of Treatment Reminders Order Date Submit Date Provider Last Modified By Organization Details Last Modified Time Details Appointments None recorded. Lab hbcab (hepatitis B core Ab) igm, serum 2024 025 [facility] (Lab), [address] [place], [address], 5 04:01:52 HBsAg (hepatitis B surface Ag), serum 2024 025 [facility] (Lab), [address] [place], [address], 5 04:01:52 hepatitis C virus Ab, serum 2024 025 [facility] (Lab), [address] [place], [address], 5 04:01:52 HIV 1+2 AB + HIV 1 p24 Ag, qualitative immunoassay , serum 2024 025 [facility] (Lab), [address], [place], [address], 5 04:01:52 RPR (rapid plasma reagin), serum 2024 [facility] (Lab), [address], [place], [address], 5 04:01:52 pap, IG + reflex HPV if ASC-U - if positive HPV run subtyping 16,18/45 add gc/ct/trich 2024 025 [facility] (Lab), [address], [place], [address], 5 05:20:42 CMP, serum or plasma 2024 [facility] (Lab), [address], [place], [address], 5 04:01:51 lipid panel, blood 2024 [facility] (Lab), [address] [place], [address], 5 04:01:51 25-hydroxyv itamin D2 + 25-hydroxyv itamin D3, QN, serum or plasma 2024 025 [facility] (Lab), [address] [place], [address], 5 04:01:52 CBC w/ auto diff 2024 025 [facility] (Lab), [address] [place], [address], 5 04:01:52 vitamin B12 + folate, serum or blood 2024 025 [facility] (Lab), [address] [place], [address], 5 04:01:52 estradiol, serum 2024 [facility] (Lab), [address], [place], [address], 5 04:01:50 FSH (follicle-s timulating hormone), serum 2024 [facility] (Lab), [address], [place], [address], 5 04:01:50 HbA1c (hemoglobin A1c), blood 2024 [facility] (Lab), [address], [place], [address], 5 04:01:50 lh (luteinizin g hormone), serum 2024 [facility] (Lab), [address], [place], [address], 5 04:01:51 progesteron e, serum 2024 [facility] (Lab), [address], [place], [address], 5 04:01:51 prolactin, serum 2024 025 [facility] (Lab), [address], [place], [address], 5 04:01:51 TSH, serum or plasma 2024 [facility] (Lab), [address] [place], [address], 5 04:01:51 testosteron e free/testos terone total, ratio, serum 2024 025 [facility] (Lab), [address] [place], [address], 04:01:51 Referral None recorded. Procedures None recorded. Surgeries None recorded. Imaging US, breast, bilateral, complete - h/o right breast biopsy 2024 025 [facility], [address], [address], [place], [address], 04:01:50 Medication Orders None recorded. Patient TargetsNo targets recorded. Patient InstructionsNo instructions recorded. Reason for Referral None Reported. Results Created Date Observation Date Name Description Value Unit Range Abnormal Flag Note LastModifiedBy Organization Detail LastModifiedTime 07/25/2007/25/2025 CT/GC AND TRICH OMONA S VAGIN RUTHY (RRNA ), THINP REP VIAL CT/GC and trichomonas vaginalis (rrna), thinprep SEE RESULT S BELOW negati ve CHLAM YDIA TRACH OMATI S, PCR: Negat jhonny NEISS ERIA GONOR RHOEA E, PCR: Negat jhonny TRICH OMONA S VAGIN RUTHY RIBOS OMAL RNA (RRNA ): Negat jhonny Not Available [facility] (Lab) [address] [facility], [place], [address], 08/04/2025 12:13:48 Result Notes None recorded. Problems Name Problem SNOMED Code Status Onset Date Resolution Date Notes Provider Name and Address Organization Details Recorded Time Pregnanc y test positive [id number] Completed 201002/05/2021 Positive Pregnanc y Test;Pra ctice ID: 0001 Valerie zimmerman, [facility] 14:13:20 Uterine size for dates discrepa ncy [id number] Completed 201002/05/2021 UTERINE SIZE CARMEN-ANTE PAR;Prac matt ID: 0001 Valerie zimmerman, [facility] 14:13:39 Primigra beto [id number] Completed 201002/05/2021 Supervis ion of normal first pregnanc y;Practi ce ID: 0001 Valerie zimmerman, [facility] 14:08:11 anatomy study Completed 201002/05/2021 [facility] ANATMC SURVEY;Yo lord ID: 0001 Valerie zimmerman [facility] 14:13:24 Syncope and collapse [id number] Completed 201002/05/2021 Syncope and collapse ;Practic e ID: 0001 Valerie zimmerman, [facility] 14:13:28 Generali zed abdomina l pain [id number] Completed 201002/05/2021 Abdomina l pain, generali zed;Prac matt ID: 0001 Valerie zimmerman, [facility] 14:08:06 Acute upper respirat ory infectio n [id number] Completed 201002/05/2021 Acute upper respirat ory infectio ns of unspecif ied site;Pra ctice ID: 0001 Valerie zimmerman [facility] 14:18:19 Delivery normal [id number] Completed 201002/05/2021 Normal delivery ;Practic e ID: 0001 Valerie zimmerman [facility] 14:18:10 Single live from singleto n pregnanc y [id number] Completed 201002/05/2021 Mother with single liveborn ;Practic e ID: 0001 Valerie zimmerman, [facility] 14:13:11 Postpart um care Completed 201102/05/2021 Routine postpart um follow-u p;Record ed Elsewher e: No Locat ion: Rod dorantes [facility] S ource: EHR Preparation Supervisor ana: N Practi ce ID: 0001 J Carlos lable Time: 02:00:00 PM Valerie zimmerman, [facility] 14:13:04 Pregnanc y test negative [id number] Completed 201102/05/2021 Pregnanc y examinat ion or test, negative result;R ecorded Elsewher e: No Locat ion: [facility] S ource: EHR Preparation Supervisor ana: N Guille ce ID: 0001 J Carlos lable Time: 02:00:00 PM Valerie zimmerman [facility] 14:13:21 Irregula r periods [id number] Completed 201102/05/2021 Irregula r menstrua l cycle;Re corded Elsewher e: No Locat ion: [facility] Guille ce ID: 0001 J Carlos lable Time: 10:30:00 AM Valerie zimmerman [facility] 14:18:32 Dysfunct ional uterine bleeding Completed 201102/05/2021 Other disorder s of menstrua tion and other abnormal bleeding from female genital tract;Re corded Elsewher e: No Locat ion: [facility] Augusto Han ce ID: 0001 J Carlos lable Time: 10:30:00 AM Valerie zimmerman [facility] 14:13:12 Speciali zed medical examinat ion Completed 201402/05/2021 Gynecolo gical Examinat ion;Hakeem rded Elsewher e: No Locat ion: [facility] S ource: EHR Preparation Supervisor ana: N Charlotteti ce ID: 0001 J Carlos lable Time: 12:45:00 PM Valerie zimmerman [facility] 14:18:14 Amenorrh ea [id number] Completed 201402/05/2021 Absence of menstrua tion;Rec orded Elsewher e: No Locat ion: [facility] S ource: EHR Preparation Supervisor ana: N Practi ce ID: 0001 J Carlos lable Time: 12:45:00 PM Valerie zimmerman, [facility] 14:13:07 Complete legal terminat ion of pregnanc y [id number] Completed 201402/05/2021 Complete legally induced ;Recorde d Elsewher e: No Locat ion: [facility] S ource: EHR Preparation Supervisor ana: N Practi ce ID: 0001 J Carlos lable Time: 03:45:00 PM Valerie Ospina [facility], [facility] 14:13:23 Educatio n Completed 201402/05/2021 CONTRACE PTIVE MANGMT NEC;Prac matt ID: 0001 Valerie Ospina [facility], [facility] 14:18:12 Postoper ative follow-u p visit Completed 201402/05/2021 FOLLOW-U P SURGERY NEC;Prac matt ID: 0001 Valerie Ospina [facility], [facility] 14:13:41 Gestatio n less than 9 weeks [id number] Completed 201502/05/2021 Less than 8 weeks gestatio n of pregnanc y;Record ed Elsewher e: No Locat ion: [facility] S ource: EHR Preparation Supervisor ana: N Practi ce ID: 0001 J Carlos lable Time: 11:30:00 AM Valerie zimmerman, [facility] 14:13:38 Hemorrha gic complica tion of pregnanc y [id number] Completed 201502/05/2021 Other hemorrha ge in early pregnanc y;Record ed Elsewher e: No Locat ion: [facility] S ource: EHR Preparation Supervisor ana: N Practi ce ID: 0001 J Carlos lable Time: 11:30:00 AM Valerie zimmerman, [facility] 14:08:08 Gestatio n period, 9 weeks [id number] Completed 201502/05/2021 9 weeks gestatio n of pregnanc y;Record ed Elsewher e: No Locat ion: Rod dorantes [facility] S ource: EHR Preparation Supervisor ana: N Practi ce ID: 0001 J Carlos lable Time: 11:30:00 AM Valerie zimmerman, [facility] 14:18:35 Gestatio n period, 14 weeks [id number] Completed 201502/05/2021 14 weeks gestatio n of pregnanc y;Record ed Elsewher e: No Locat ion: Rod dorantes [facility] S ource: EHR Preparation Supervisor ana: N Practi ce ID: 0001 J Carlos lable Time: 02:45:00 PM Valerie zimmerman, [facility] 14:18:29 Gestatio n period, 15 weeks [id number] Completed 201502/05/2021 15 weeks gestatio n of pregnanc y;Record ed Elsewher e: No Locat ion: Rod dorantes [facility] S ource: EHR Preparation Supervisor ana: N Practi ce ID: 0001 J Carlos lable Time: 02:00:00 PM Valerie zimmerman [facility] 14:18:27 Threaten ed miscarri age [id number] Completed 201502/05/2021 Threaten ed ;Recorde d Elsewher e: No [facility] EHR Preparation Supervisor ana: N Practi ce ID: 0001 J Carlos lable Time: 01:30:00 PM Valerie zimmerman, [facility] 14:18:17 Gestatio n period, 16 weeks [id number] Completed 201502/05/2021 16 weeks gestatio n of pregnanc y;Record ed Elsewher e: No Locat ion: Rod dorantes [facility] S ource: EHR Preparation Supervisor ana: N Practi ce ID: 0001 J Carlos lable Time: 01:30:00 PM Valerie zimmerman, [facility] 14:13:09 Spotting per vagina in pregnanc y [id number] Completed 201502/05/2021 Spotting complica ting pregnanc y, second trimeste r;Record ed Elsewher e: No Locat ion: Rod dorantes [facility] S ource: EHR Preparation Supervisor ana: N Practi ce ID: 0001 J Carlos lable Time: 11:45:00 AM Valerie zimmerman, [facility] 14:13:27 Gestatio n period, 17 weeks [id number] Completed 201502/05/2021 17 weeks gestatio n of pregnanc y;Record ed Elsewher e: No Locat ion: Saymarylni jose e [facility] S ource: EHR Preparation Supervisor ana: N Practi ce ID: 0001 J Carlos lable Time: 11:45:00 AM Valerie zimmerman, [facility] 14:18:25 Prematur e labor [id number] Completed 201502/05/2021 labor without delivery , unspecif ied trimeste r;Record ed Elsewher e: No Locat ion: Saymarylin jose e [facility] S ource: EHR Preparation Supervisor ana: N Practi ce ID: 0001 J Carlos lable Time: 04:30:00 PM Valerie zimmerman, [facility] 14:18:21 Gestatio n period, 30 weeks [id number] Completed 201502/05/2021 30 weeks gestatio n of pregnanc y;Practi ce ID: 0001 Valerie Ospina null, [facility] 14:18:28 Gestatio n period, 31 weeks [id number] Completed 201502/05/2021 31 weeks gestatio n of pregnanc y;Practi ce ID: 0001 Valerie zimmerman, [facility] 14:18:23 Normal pregnanc y in lidaa beto [id number] 4106 Completed 201502/05/2021 Encounte r for suprvsn of normal pregnanc y, third trimeste r;Record ed Elsewher e: No Locat ion: Rod dorantes [facility] S ource: EHR Preparation Supervisor ana: N Practi ce ID: 0001 J Carlos lable Time: 03:00:00 PM Valerie zimmerman, [facility] 14:13:42 Gestatio n period, 32 weeks [id number] Completed 201502/05/2021 32 weeks gestatio n of pregnanc y;Record ed Elsewher e: No Locat ion: Rod dorantes [facility] S ource: EHR Preparation Supervisor ana: N Practi ce ID: 0001 J Carlos lable Time: 04:15:00 PM Valerie zimmerman, [facility] 14:18:[address] Concept Completed 201502/05/2021 Maternal care for oth abnormal ity and damage, unsp;Rec orded Elsewher e: No Locat ion: Rod dorantes [facility] S ource: EHR Preparation Supervisor ana: N Practi ce ID: 0001 J Carlos lable Time: 04:15:00 PM Valerie zimmerman, [facility] 14:13:[address] Concept Completed 201502/05/2021 Decrease d movement s, third trimeste r, unsp;Rec orded Elsewher e: No Locat ion: Rod dorantes [facility] S ource: EHR Preparation Supervisor ana: N Practi ce ID: 0001 J Carlos lable Time: 04:00:00 PM Valerie zimmerman, [facility] 14:13:17 Gestatio n period, 34 weeks [id number] Completed 201502/05/2021 34 weeks gestatio n of pregnanc y;Record ed Elsewher e: No Locat ion: Rod dorantes [facility] S ource: EHR Preparation Supervisor ana: N Practi ce ID: 0001 J Carlos lable Time: 04:00:00 PM Valerie zimmerman, [facility] 14:13:06 False labor before 37 complete d weeks of gestatio n [id number] 911972 Completed 201502/05/2021 False labor before 37 complete d weeks of gest, third tri;Prac matt ID: 0001 Valerie zimmerman, [facility] 14:08:10 Complica tion occurrin g during pregnanc y Completed 201502/05/2021 Infectio n oth prt genitl trct in pregnanc y, third trimeste r;Practi ce ID: 0001 Valerie zimmerman, [facility] 14:13:14 Gestatio n period, 35 weeks [id number] Completed 201502/05/2021 35 weeks gestatio n of pregnanc y;Practi ce ID: 0001 Valerie zimmerman, [facility] 14:18:34 Marginal insertio n of umbilica l cord [id number] Completed 201502/05/2021 Velament ous insertio n of umbilica l cord, third trimeste r;Practi ce ID: 0001 Valerie zimmerman, [facility] 14:18:15 Placenta l abruptio n [id number] Completed 201502/05/2021 Prematur e separati on of placenta , unsp, third trimeste r;Practi ce ID: 0001 Valerie Doran elsie, [facility] 14:13:36 Lochia finding Completed 201502/05/2021 Encounte r for routine postpart um follow-u p;Practi ce ID: 0001 Valerie zimmerman [facility] 14:13:34 Procedur e by method Completed 201502/05/2021 Encounte r for oth general cnsl and advice on contrace ption;Pr actice ID: 0001 Valerie zimmerman [facility] 14:13:[address] Concept Completed 201502/05/2021 Encounte r for routine adult physical exam w/o abnormal finding; Recorded Elsewher e: No [facility] S ource: EHR Preparation Supervisor ana: N Practi ce ID: 0001 J Carlos lable Time: 11:30:00 AM Valerie zimmerman [facility] 14:13:30 Acute vaginiti s [id number] Completed 201502/05/2021 Acute vaginiti s;Practi ce ID: 0001 Valerie zimmerman, [facility] 14:13:18 Steriliz ation procedur e Completed 201602/05/2021 Encounte r for steriliz ation;Pr actice ID: 0001 Valerie zimmerman [facility] 14:13:33 Pelvic and perineal pain [id number] Completed 201602/05/2021 Pelvic and perineal pain;Pra ctice ID: 0001 Valerie zimmerman [facility] 14:13:26 Notes:Encounter for antenata l screening of mother Recorded Elsewhere: No Location: [facility] Source: EHR Chronic: N Practice ID: 0001 Billable Time: 10:30:00 AM Encounter for screening of mother Practice ID: 0001 Problem Notes None recorded. Procedures Surgical History Date Name Laterality Status Provider Name and Address Organization Details Recorded Time 08/28/20 21 reconstruction of mandible completed Christal Sanchez [facility] 07/25/2025 12:55:53 10/30/19 17 Tubal Ligation completed Dannielle Finn [facility] 04/24/2020 21:16:09 Imaging Results None recorded. Procedure Notes None recorded. Medical Equipment None Reported. Allergies Allergen ID Allergen Name Allergen Category Reaction Reaction Severity Criticality Documentation Date Start Date Code Code System Note Provider Name and Address Organization Details Recorded Time 44884 soy environme nt,food,m edication Not available Not available Not available 08/17/2020 Comme nt: [facility]at [facility]; Not Available [facility] 0 14:20:34 80063 wheat preparati on food,medi cation Not available Not available Not available 08/17/2020 20261 52 RxNorm Comme nt: Locat ion: [facility]; Not Available [facility] 0 14:20:34 Medications Name Sig Start Date Stop Date Status Note LastModified by Organization Details LastModified Time amoxicill in 500 mg capsule TAKE 1 CAPSULE BY MOUTH EVERY 8 HOURS FOR 7 DAYS 02/05 completed Not Available Not Available Not Available terbinafi ne HCl 1 % topical cream apply by topical route every day to the affected and surround ing areas of skin 12/01 completed Prescrib ed Elsewher e: No [facility] M odify By: eedmonds Encount er DateTime : 07/01/20 11 04:37:06 PM Not Available Not Available Not Available paroxetin e 10 mg tablet TAKE 1 TABLET BY MOUTH EVERY MORNING 07/25 completed Not Available Not Available Not Available azithromy jorge 250 mg tablet TAKE 2 TABLETS BY MOUTH TODAY, THEN TAKE 1 TABLET DAILY FOR 4 DAYS 02/05 completed Not Available Not Available Not Available ibuprofen 800 mg tablet TAKE 1 TABLET BY MOUTH THREE TIMES DAILY NEEDED FOR PAIN 07/25 completed Not Available Not Available Not Available fluconazo le 150 mg tablet TAKE 1 TABLET BY MOUTH ONE TIME 07/25 completed Not Available Not Available Not Available metronida zole 0.75 % (37.5 mg/5 gram) vaginal gel IVB FOR 5 DAYS 02/05 completed Not Available Not Available Not Available prednison e 20 mg tablet TAKE 1 TABLET BY MOUTH DAILY 07/25 completed Not Available Not Available Not Available penicilli n V potassium 500 mg tablet TAKE 1 TABLET BY MOUTH FOUR TIMES DAILY UNTIL ALL TAKEN 07/22 completed Not Available Not Available Not Available metronida zole 500 mg tablet TK 1 T PO Q 12 H 02/05 completed Not Available Not Available Not Available acetamino phen 300 mg-codein e 30 mg tablet TAKE 1 TABLET BY MOUTH EVERY 4 TO 6 HOURS NEEDED 07/25 completed Not Available Not Available Not Available Reglan 10 mg tablet take 1 tablet by oral route 4 times every day 30 minutes before meals and at bedtime 05/19 completed Prescrib ed Elsewher e: No Locat ion: [facility] odify By: amelroy richardson DateTime : 04/12/20 15 12:45:00 PM Not Available Not Available Not Available lorazepam 0.5 mg tablet TAKE 1 TABLET BY MOUTH EVERY DAY active Not Available Not Available No t Available dextroamp hetamine- amphetami ne ER 20 mg 24hr capsule,e xtend release TAKE 1 CAPSULE BY MOUTH EVERY DAY IN THE MORNING active Not Available Not Available No t Available cephalexi n 500 mg capsule TAKE 2 CAPSULES BY MOUTH TWICE A DAY FOR 7 DAYS 02/05 completed Not Available Not Available Not Available dextroamp hetamine- amphetami ne 20 mg tablet TAKE 1 TABLET BY MOUTH EVERY AFTERNOO N active Not Available Not Available No t Available Vitamin D2 1,250 mcg (50,000 unit) capsule take 1 capsule by oral route every week 05/19 completed Prescrib ed Elsewher e: No Locat ion: [facility] M odify By: amelroy richardson DateTime : 11/27/19 16 02:27:17 PM Not Available Not Available Not Available dextroamp hetamine- amphetami ne ER 30 mg 24hr capsule,e xtend release TAKE ONE Capsule BY MOUTH EVERY MORNING 07/25 completed Not Available Not Available Not Available ondansetr on 4 mg disintegr ating tablet DISSOLVE 1 TABLET ON THE TONGUE EVERY 8 HOURS NEEDED FOR NAUSEA OR VOMITING 07/25 completed Not Available Not Available Not Available hydroxyzi ne pamoate 25 mg capsule TAKE 1 CAPSULE BY MOUTH THREE TIMES DAILY NEEDED 07/25 completed Not Available Not Available Not Available dextroamp hetamine- amphetami ne ER 15 mg 24hr capsule,e xtend release TAKE 1 CAPSULE BY MOUTH TWICE DAILY 07/25 completed Not Available Not Available Not Available Ortho Evra 150 mcg-35 mcg/24 hr transderm al patch apply 1 patch by transder mal route every week 05/19 completed Prescrib ed Elsewher e: No Locat ion: Say jose e [facility] odify By: eh [email or web address] DateTime : 05/24/20 15 03:45:00 PM Not Available Not Available Not Available escitalop efren 5 mg tablet 07/25 completed Not Available Not Available Not Available Loestrin 24 Fe 1 mg-20 mcg (24)/75 mg (4) tablet take 1 tablet by oral route every day 04/12 completed Prescrib ed Elsewher e: No Locat ion: Rod dorantes [facility] odify By: pricilla geiger DateTime : 12/15/19 12 09:42:28 AM Not Available Not Available Not Available Lithate 5 mg capsule 04/12 completed Prescrib ed Elsewher e: Yes Loca tion: Rod dorantes [facility] odify By: pricilla Smart r DateTime : 09/22/19 12 02:00:00 PM Not Available Not Available Not Available PNV-DHA 27 mg iron-1 mg-300 mg capsule take 1 capsule by oral route every day 05/19 completed Prescrib ed Elsewher e: No Locat ion: Say jose e [facility] odify By: eh richardson DateTime : 12/04/19 16 11:45:00 AM Not Available Not Available Not Available Lo Loestrin Fe 1 mg-10 mcg (24)/10 mcg (2) tablet take 1 tablet by oral route every day 07/25 completed Prescrib ed Elsewher e: Yes Loca tion: Rod dorantes [facility] odify By: [email or web address] Jose E ncotessaer DateTime : 09/29/19 08:30:00 AM Not Available Not Available Not Available Vitals Date Recorded Body height Body mass index (BMI) Body weight Systolic And Diastolic Provider Name and Address Organization Details Last Updated DateTime 07/25/2025 158.75 cm 23.8 kg/m2 57895.19 g 101/68 mm[Hg] Christal Sanchez [facility] 07/25/2025 12:51:39 Social History Question Answer Notes LastModified by [employer] Details LastModified Time Tobacco Smoking Status Current Every Day Smoker Not Available [facility] 07/03/2020 03:28:11 In The 14 Days Before Symptom Onset, Have You Had Close Contact With A Laboratory-confirm ed COVID-19 While That Case Was Ill? No [email or web address] Information n ot available 07/25/2025 In The 14 Days Before Symptom Onset, Have You Had Close Contact With A Person Who Is Under Investigation For COVID-19 While That Person Was Ill? No [email or web address] Information not available 07/25/2025 Have You Been To An Area Known To Be High Risk For COVID-19? No [email or web address] Information not available 07/25/2025 What Was The Date Of Your Most Recent Tobacco Screening? 04/24/2020 [id number] Information not available 07/03/2020 How Much Tobacco Do You Smoke? No [id number] Information not available 07/03/2020 Sex: Unknown Functional Status Question Answer Note LastModified by SoundOut Details LastModified Time What is your level of alcohol consumption? Occasional [id number] Information not available 07/03/2020 Do you or have you ever used smokeless tobacco? Never used smokeless tobacco [id number] Information not available 07/03/2020 Do you or have you ever used e-cigarettes or vape? Current user of electronic cigarettes [id number] Information not available 07/03/2020 What is your exercise level? Occasional [id number] Information not available 07/03/2020 Mental Status None recorded. Family History Relationship Description Onset Age of this Age Resolved Age Notes LastModified by Organization Details LastModified Time Father Bipolar disorder Not available 04/24 21:13:08 Father Mood disorder [email or web address] Not available 04/24 21:14:34 Mother Bipolar disorder Not available 04/24 21:13:08 Mother Mood disorder [email or web address] Not available 04/24 21:14:34 Maternal Grandmother Bipolar disorder [email or web address] Not available 04/24 21:13:08 Maternal Grandmother Mood disorder [email or web address] Not available 04/24 21:14:34 Maternal Grandfather Bipolar disorder [email or web address] Not available 04/24 21:13:08 Maternal Grandfather Diabetes mellitus [email or web address] Not available 04/24 21:13:20 Maternal Grandfather Mood disorder [email or web address] Not available 04/24 21:14:34 Paternal Grandfather Bipolar disorder [email or web address] Not available 04/24 21:13:08 Paternal Grandfather Diabetes mellitus [email or web address] Not available 04/24 21:13:20 Paternal Grandfather Mood disorder [email or web address] Not available 04/24 21:14:34 Paternal Grandmother Bipolar disorder [email or web address] Not available 04/24 21:13:08 Paternal Grandmother Mood disorder [email or web address] Not available 04/24 21:14:34 Sister Bipolar disorder [email or web address] Not available 04/24 21:13:08 Sister Disorder of thyroid gland [email or web address] Not available 04/24 21:13:28 Sister Mood disorder [email or web address] Not available 04/24 21:14:34 Paternal Aunt Bipolar disorder [email or web address] Not available 04/24 21:13:08 Paternal Aunt Mood disorder [email or web address] Not available 04/24 21:14:34 Paternal Uncle Bipolar disorder [email or web address] Not available 04/24 21:13:08 Paternal Uncle Mood disorder [email or web address] Not available 04/24 21:14:34 Maternal Aunt Bipolar disorder [email or web address] Not available 04/24 21:13:08 Maternal Aunt Mood disorder [email or web address] Not available 04/24 21:14:34 Maternal Uncle Bipolar disorder Not available 04/24 21:13:08 Maternal Uncle Mood disorder [email or web address] Not available 04/24 21:14:34 Notes:Aunt: Psychiatric Dise ase, Bipolar disorder Father: Bipolar disorder, Psychiatric Disease Grandfather: Diabetes mellitus, Bipolar disorder, Cancer, Psychiatric Disease Grandmother: Bipolar disorder, Psychiatric Disease, Anemia Mother: Psychiatric Disease, Bipolar disorder Sister: Bipolar disorder, Thyroid disease, Psychiatric Disease Uncle: Psychiatric Disease, Bipolar disorder Medical History Condition Response Allergies (Food, seasonal, environmental ) Y Anxiety Disorder Y Psychiatric Illness Y Depression/ depression Y Gynecological History Statement/Question Response Flow Moderate Date of Last Mammogram Date of LMP 07/21/2025 Was last menstrual period normal Y STIs/STDs Y HPV Vaccine N Duration of Flow (days) 3 Current Control Method Tubal Ligat ion Are cycles usually normal Y Date of Last Colonoscopy Frequency of Cycle (Q days) 28 Sexually Active? Y Menses Monthly Y Age of first menstrual cycle 13 Sexual Problems? Y LMP Approximate Obstetrics History GPAL:G 6 P 1 2 3 3 Type Value Full Term 1 Induced 2 Spontaneous 1 Premature 2 Living 3 Total 6 Past Encounters Encounter ID Performer Location Encounter Start Date Encounter Closed Date Diagnosis/Indication Diagnosis SNOMED-CT Code Diagnosis ICD10 Code Diagnosis IMO Codes Diagnosis Note [id number] [facility] [address] [address] 07/25/2025 12:39:57 07/25/2025 13:47:13 Gynecologic examination 53778086 Z01.872 [id number] WWEBC - BTLPap - done todaySTI screen - orderedRou edith labs - orderedRTC in 1 yr or sooner if needed It is strongly advised to have an annual flu shot and up can obtain at most pharmacies . If you have not had a TDap shot in the last 10 years you should obtain one as well. Discussed with patient & provided with informatio n regarding the HPV vaccine if applicable . Encourage safe sexual practices, to use condoms and limit partners if not already in a monogamous relationsh ip. Do monthly self breast exams. BRCA testing is now available for patients with strong genetic history of female cancer. If interested contact the office. Engage in regular exercise. Avoid tobacco and illicit drugs. This lifestyle behavior pattern will lead to less health conditions and longer life span. If BMI greater than 25 dietary consult advised. Questions answered. Venereal d isease screening 346752769 Z11.3 14513 Premenstru al dysphoric disorder 194255 F32.81 861522 Discussed PMDD and management options (hormonal and non hormonal options)de clines for now, hormone labs ordered per pt preference Lump in bi lateral breasts [id number] 8901080 N63.10 N63.20 [id number] order given for updated bilateral breast u/s Time spent in visit is a total of 30 mins with at least 50% of visit consisting of counseling and review of plan of care. Adult heal th examination 163805792 Z00.00 1255989 Sexually t ransmitted infectious disease 0595121 A64 Health Concerns Section Related Observation LastModified by Organization Detai ls LastModified Time None Recorded Concern Status LastModified by Organization Details LastModified Time None Recorded Payers Encounter Date Sequence Insurance Name Policy Number Policy Kirkland Covered Member ID Kirkland Member ID Guarantor Name 07/25/2025 1 [facility] (MEDICAID HMO) [id number] Brice Gomes [id number] Brice Gomes Notes Date Note Type Note Provider Name and Address Organization Details Recorded Time 5 text/html Annual GYNReported by PatientGenitourinary symptomsFor menstrual cycle, patient reportsnormal menses. For urinary symptoms, patient reportsno hematuriaandno incontinence. For vulva, patient reportsno genital lesion. For vagina, patient reportsnormal vaginal discharge.Breast symptomsFor breast, patient reportsno breast pain,no breast lump, andno nipple discharge.ContraceptionFo r current contraception, patient reportssatisfied with current contraceptionandtubal ligation.Endocrine symptomsFor sexual complaints, patient reportsno sexual complaints,no pain during intercourse, andnormal libido. For menopausal symptoms, patient reportsno menopausal symptomsandnormal vaginal lubrication.Psychological symptomsFor psychological symptoms, patient reportspmdd prior to menstruation (3-10 days)but reportsno depressionandno anxiety.Preventative measuresFor preventive measures, patient reportsencourage self breast examination,encourage regular exercise,encourage no tobacco use, andencourage regular mammograms starting age 40.29yo [id number] [id number] unknownBC - BTL H/o PMDD, significant mood changes/swings leading up to her periods. Requesting hormone testing today.H/o benign right breast biopsy around 2012. Bilateral breast lumps.STI testing requestedNeeds annual adult health labs [facility] [address], [place], [address], [facility] 07/25/2025 13:32:33 OBGyn Episode No OBEpisode recorded.
[2025-08-10 23:33] VITALS: BP 104/44; PULSE 87; RESP 14; TEMP 36.5; O2SAT 100
--- NOTE | 2025-08-11 02:42 | ED.GENADULT ---
HPI - General Adult General Chief complaint: Unspecified Stated complaint: I think my jaw is dislocated Time Seen by Provider: 08/10/25 23:44 Source: patient Mode of arrival: ambulatory Limitations: no limitations History of Present Illness HPI narrative: This is a 29-year-old female Related Data Home Medications ?Medication ?Instructions ?Recorded ?Confirmed ?Last Taken ?Type dextroamphetamine-amphetamine 20 07/18/25 Unknown History mg tablet dextroamphetamine-amphetamine ER PO 07/18/25 Unknown History 20 mg 24hr capsule,extend release lorazepam 0.5 mg tablet mg 07/18/25 Unknown History Allergies Allergy/AdvReac Type Severity Reaction Status Date / Time latex Allergy Unknown ITCHING Verified 08/10/25 23:28 morphine AdvReac Intermediate Confusion Verified 08/10/25 23:28 PMFSH Past Medical History Medical History History of seizure History of chlamydia History of pelvic inflammatory disease Surgical History Surgical History History of tubal ligation Family History Family History Other Cerebrovascular accident Diabetes mellitus Family history of alcoholism Family history of arthritis Family history of malignant neoplasm Family history of mental disorder Hypertension Social History Social History Smoking status: Current every day smoker Alcohol intake: current Gender identity (if verbalized by the patient): Female Course Vital Signs Vital signs: Vital Signs Temperature 97.7 F 08/10/25 23:33 Pulse Rate 87 08/10/25 23:33 Respiratory Rate 14 08/10/25 23:33 Blood Pressure 104/44 L 08/10/25 23:33 Pulse Oximetry 100 08/10/25 23:33 Oxygen Delivery Room Air 08/10/25 23:33 Temperature 97.7 F 08/10/25 23:33 Pulse Rate 81 08/11/25 04:10 Respiratory Rate 17 08/11/25 04:10 Blood Pressure 109/52 L 08/11/25 04:10 Pulse Oximetry 100 08/11/25 04:10 Oxygen Delivery Room Air 08/10/25 23:33 [facility] MDM Narrative Medical decision making narrative: 29-year-old female Presenting for right jaw pain. On initial evaluation patient was in no acute distress afebrile, hemodynamic stable. Differentials include but are not limited to: Jaw dislocation, mandibular fracture, TMJ Notable exam findings: Mild tenderness palpation over the right TMJ, negative tongue depressor challenge I personally reviewed the patient's images and interpret as follows: CT facial bones showed no mandibular dislocation Suspect that patient's symptoms are more likely due to TMJ. She was advised to follow-up with her dentist for further evaluation. She was also given a referral to Family Medicine here at [facility] to establish care. Patient was agreeable to this plan. Given strict return precautions. Differential Diagnosis Differential Diagnosis: Jaw dislocation, mandibular fracture, TMJ Imaging Data Radiologist's impression: ITS Impressions Face CT 08/11/25 07:58 IMPRESSION: No acute findings. Left mandibular fixation hardware appears intact. Minimal paranasal sinus disease. NOTE: Preliminary radiologist report provided by [facility] radiologist/physician. Discharge Plan Discharge Clinical Impression: TMJ (temporomandibular joint disorder) Patient Disposition: Home Condition: Stable Instructions: Antibiotic Form Additional Instructions: CT scan of your jaw showed no evidence of dislocation. You likely have TMJ dysfunction. This can be managed by either your PCP or a dentist, he were given a referral to Dr. Horowitz, Family Medicine, to establish care. You may take Tylenol and ibuprofen for the pain. Return to the ED for any new worsening symptoms. Patient Language: Togolese Prescriptions: No Action lorazepam 0.5 mg tablet dextroamphetamine-amphetamine 20 mg capsule,extended release 24hr PO dextroamphetamine-amphetamine 20 mg tablet fluticasone propionate [Allergy Relief (fluticasone)] 50 mcg/actuation spray,suspension 1 spray intranasal DAILY Qty: 16 0RF Rx Instructions: administer into each nostril amoxicillin-pot clavulanate 875-125 mg tablet 1 tablet PO Q12H Qty: 10 0RF Follow-up/Referrals: Sukumar Horowitz DO [Physician, Family Practice] PHYSICIAN,COLLECTION ANALYST [Primary Care Provider, Internal Medicine]
[2025-08-11] MEDS: KETOROLAC 30 MG/ML VIAL (*BKC) IM (02:55)
--- OUTSIDE RECORDS SUMMARY | 2025-08-11 03:06 | XMS_ITS | Clinical Summary ---
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 Gender Identity Female 10/01/2021 12:02 PM REEFER TRUCK DRIVER Sexual Orientation Not on file Last Filed Vital Signs Vital Sign Reading Time Taken Comments Blood Pressure 98/68 07/21/2024 3:52 PM REEFER TRUCK DRIVER Pulse 68 07/21/2024 3:52 PM REEFER TRUCK DRIVER Temperature 36.7 C (98.1 F) 07/21/2024 3:52 PM REEFER TRUCK DRIVER Respiratory Rate 20 07/21/2024 3:52 PM REEFER TRUCK DRIVER Oxygen Saturation 98% 07/21/2024 3:52 PM REEFER TRUCK DRIVER Inhaled Oxygen Concentration - - Weight 56.7 kg (125 lb) 07/21/2024 3:52 PM REEFER TRUCK DRIVER Height 157.5 cm (5' 2) 07/21/2024 3:52 PM REEFER TRUCK DRIVER Body Mass Index 22.86 07/21/2024 3:52 PM REEFER TRUCK DRIVER Plan of Treatment Health Maintenance Due Date [...] Completed 03/10/1996 Medical Devices Implanted Type Area Manager Property Device Identifier Shelf Expiration Date Model / Serial / Lot Wysox Craniomaxillofacial [id number] Leibinger [place] 2 Smart Lock 9 Hole Mandible Small Plate Bone - Sna - [id number] Implanted:Qty: 2 on 08/28/2021 by Lorenza Campbell MD at [facility] Plate Bilateral : Mandible Rigoberto Craniomaxillofacial [id number] / NA / NA Wysox Craniomaxillofacial 50 Leibinger [place] 2 Smartlock 2mm 6mm Self Drill Lock - Sna - [id number] Implanted:Qty: 5 on 08/28/2021 by Lorenza Campbell MD at [facility] Screw Bilateral : Mandible Wysox Craniomaxillofacial 50 / NA / NA Wysox Craniomaxillofacial 50- Leibinger [place] 2 Smartlock 2mm 8mm Self Drill Lock - Sna - [id number] Implanted:Qty: 5 on 08/28/2021 by Lorenza Campbell MD at [facility] Screw Bilateral : Mandible Wysox Craniomaxillofacial [id number] / NA / NA Rigoberto Craniomaxillofacial [id number] Smart Lock Leibinger [place] 2 1mm 4 Hole Mandible Mini - [id number] - [id number] Implanted:Qty: 1 on 08/28/2021 by Lorenza Campbell MD at [facility] Bilateral : Mandible Wysox Craniomaxillofacial [id number] / [id number] / Rigoberto Craniomaxillofacial [id number] 1.5mm 4 Hole Bar Maxillofacial Mini Plate Bone Titanium - [id number] - [id number] Implanted:Qty: 1 on 08/28/2021 by Lorenza Campbell MD at [facility] Bilateral : Mandible Rigoberto Craniomaxillofacial [id number] / 92- / Wysox Craniomaxillofacial 50 Leibinger [place] 2 2mm 5mm Self Tap Cross Pin Maxillofacial - [id number] - [id number] Implanted:Qty: 1 on 08/28/2021 by Lorenza Campbell MD at [facility] Bilateral : Mandible Wysox Craniomaxillofacial 50 / / Explanted Type Area Manager Property Device Identifier Shelf Expiration Date Model / Serial / Lot Rigoberto Craniomaxillofacial 50 Leibinger [place] 2 2mm 5mm Self Tap Cross Pin Maxillofacial - [id number] - [id number] Explanted:Qty: 1 on 08/28/2021 by Lorenza Campbell MD at [facility] Bilateral : Mandible Rigoberto Craniomaxillofacial 50 / 50 / Wysox Craniomaxillofacial [id number] Leibinger [place] 2 2mm 10mm Lock Cross Pin Maxillofacial Screw - [id number] - [id number] Implanted:Qty: 2 on 08/28/2021 by Lorenza Campbell MD at [facility] Explanted:Qty: 2 on 10/02/2021 by Antonio Argueta MD at [facility] Bilateral : Mandible Rigoberto Craniomaxillofacial [id number] / 50 / Rigoberto Craniomaxillofacial 50 Leibinger [place] 2 2.3mm 6mm Self Tap Cross Pin Maxillofacial - [id number] - [id number] Implanted:Qty: 3 on 08/28/2021 by Lorenza Campbell MD at [facility] Explanted:Qty: 3 on 10/02/2021 by Antonio Argueta MD at [facility] Bilateral : Mandible Wysox Craniomaxillofacial [id number] / 50--2340 6 / Rigoberto Craniomaxillofacial [id number] Leibinger [place] 2 2mm 8mm Lock Cross Pin Mandibular Screw - - [id number] Implanted:Qty: 2 on 08/28/2021 by Lorenza Campbell MD at [facility] Explanted:Qty: 2 on 10/02/2021 at [facility] Bilateral : Mandible Wysox Craniomaxillofacial [id number] / 50 / Insurance [facility] Care Teams Event Decorator And Designer Relationship Specialty Start Date End Date No, Physician PCP - General 09/27/22
--- OUTSIDE RECORDS SUMMARY | 2025-08-11 03:06 | XMS_ITS | Clinical Summary ---
Author Organization [facility] Address [address] [place] [address] Phone Care Team Providers Care Nail Setter Name Role Phone Unavailable Primary Care Provider [...] Comments Blood Pressure 107/64 07/19/2023 2:51 PM GENERAL FOREMAN Pulse 115 07/19/2023 3:09 PM GENERAL FOREMAN Temperature - - Respiratory Rate - - Oxygen Saturation 99% 07/19/2023 3:09 PM GENERAL FOREMAN Inhaled Oxygen Concentration - - Weight 49.9 kg (110 lb) 07/19/2023 2:51 PM GENERAL FOREMAN Height 157.5 cm (5' 2) 07/19/2023 2:51 PM GENERAL FOREMAN Body Mass Index 20.12 07/19/2023 2:51 PM GENERAL FOREMAN Plan of Treatment Health Maintenance Due Date Last Done Comments DTAP/TDAP/TD VACCINES (1 - Tdap) 2014 HEPATITIS B VACCINES (1 of 3 - 19+ 3-dose series) 09/01 CERVICAL CANCER SCREENING 2016 HPV/Cotest (21-29) 2016 PAP SMEAR 2016 INFLUENZA VACCINE (#1) 2025 HPV VACCINES (No Doses Required) Completed
--- OUTSIDE RECORDS SUMMARY | 2025-08-11 03:06 | XMS_ITS | Clinical Summary ---
Author Organization [facility] Address [address] [place] [address] Care Team Providers Care Emergency Medical Technician Basic Name Role Phone Roosevelt Hawk MD Primary Care Provider [phone] Source Comments [facility],non-owned Affiliates and Associated Physician Practices is amultiple site organization consisting of ambulatory clinics and hospital sitesin [place], [place], [place] and [place]. This disclosure is being madepursuant to the Care Everywhere program and may not contain all information available regarding this patient. 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
[2025-08-11 04:09] VITALS: BP 109/52; PULSE 81; RESP 17; O2SAT 100
[2025-08-11 04:10] VITALS: BP 109/52; PULSE 81; RESP 17; O2SAT 100
== END 2025-08-11 04:12 | disposition home or self-care (01) ==
PROVIDERS: Emergency Provider Student in an Organized Health Care Education/Training Program
DX: M26.601 Right temporomandibular joint disorder, unspecified (principal); F17.200 Nicotine dependence, unspecified, uncomplicated
CPT/HCPCS: 70486; 96372; 99284; J1885